=== PATIENT | male | born 1970 | race African-American/Black ===

== ENCOUNTER 2020-07-16 12:39 | Outpatient (REF) | payer OTHER, SELFPAY ==
[2020-07-16 13:21] LABS: MANUAL DIFF FLAG NO
[2020-07-16 13:24] LABS: Basophils Percent Auto 0.3 % (0-2); Eosinophils Absolute Auto 0.1 X10*3/uL (0.0-0.4); Eosinophils Percent Auto 1.4 % (0-4); Hematocrit 52.4 % (42-52); Hemoglobin 17.3 g/dl (14.0-18.0); Imm Gran Abs Auto 0.01 X10*3/uL (0.00-0.03); Imm Gran Pct Auto 0.2 % (0.0-0.4); Lymphocytes Absolute Auto 2.5 X10*3/uL (1.2-4.9); Mean Corpuscular Hemoglobin 28.8 pg (27.0-33.0); Mean Corpuscular Volume 87.3 fL (80-98); Monocytes Absolute Auto 0.5 X10*3/uL (0.1-1.2); Monocytes Percent Auto 8.5 % (2-11); Neutrophils Absolute Auto 2.7 X10*3/uL (2.0-8.3); Neutrophils Percent Auto 46.6 % (45-73); Platelet Count 219 X10*3/uL (160-400); Red Cell Distribution Width 14.8 % (11.0-16.0); White Blood Count 5.7 X10*3/uL (4.8-10.8)
[2020-07-16 13:46] LABS: Alanine Aminotransferase 32 U/L (0-40); Albumin Level 4.4 g/dL (3.5-5.0); Alkaline Phosphatase 49 U/L (39-117); Anion Gap 12 (12-20); Aspartate Amino Transferase 23 U/L (5-37); Bilirubin Direct 0.3 mg/dL (0.0-0.5); Bilirubin Total 0.7 mg/dL (0.0-1.0); Blood Urea Nitrogen 10 mg/dL (9-16); Calcium 9.6 mg/dL (8.4-10.2); Carbon Dioxide 28 mmol/L (22-29); Chloride 104 mmol/L (96-108); Cholesterol 152 mg/dL; Estimated Glomerular Filt Rate > 60; Glucose Fasting 129 mg/dL (60-99); HDL Cholesterol 44 mg/dL; LDL Cholesterol Calculated 85 mg/dl; Potassium 4.8 mmol/l (3.3-5.1); Sodium 139 mmol/L (135-145); Total Protein 7.5 g/dL (6.5-8.0); Triglycerides 115 mg/dL
== END 2020-07-16 12:40 | disposition home or self-care (01) ==
LOC: HO.LAB 12:39
PROVIDERS: PCP Internal Medicine; Visit Provider Nurse Practitioner Family
DX: R10.9 Unspecified abdominal pain (principal)
CPT/HCPCS: 36415; 80053; 80061; 80076; 82248; 85025

== ENCOUNTER 2021-06-04 08:39 | Outpatient (REF) | payer OTHER, SELFPAY ==
[2021-06-04 08:58] LABS: MANUAL DIFF FLAG NO
[2021-06-04 09:54] LABS: Basophils Percent Auto 0.4 % (0-2); Eosinophils Absolute Auto 0.1 X10*3/uL (0.0-0.4); Eosinophils Percent Auto 1.6 % (0-4); Hematocrit 51.9 % (42.0-52.0); Imm Gran Abs Auto 0.01 X10*3/uL (0.00-0.03); Imm Gran Pct Auto 0.2 % (0.0-0.4); Lymphocytes Absolute Auto 2.5 X10*3/uL (1.2-4.9); Lymphocytes Percent Auto 44.6 % (20-40); Mean Corpuscular HGB Conc 32.8 g/dl (31.0-36.0); Mean Corpuscular Hemoglobin 28.4 pg (27.0-33.0); Mean Corpuscular Volume 86.8 fL (80.0-98.0); Mean Platelet Volume 12.1 fL (9.4-12.4); Monocytes Absolute Auto 0.5 X10*3/uL (0.1-1.2); Neutrophils Absolute Auto 2.6 x10*3/uL (2.0-8.3); Neutrophils Percent Auto 45.2 % (45-73); Platelet Count 198 X10*3/uL (160-400); Red Blood Count 5.98 X10*6/uL (4.60-5.80); Red Cell Distribution Width 15.7 % (11.0-16.0); White Blood Count 5.6 X10*3/uL (4.8-10.8)
[2021-06-04 10:08] LABS: Alanine Aminotransferase 43 U/L (0-40); Albumin Level 4.3 g/dL (3.5-5.0); Alkaline Phosphatase 43 U/L (39-117); Anion Gap 14 (12-20); Aspartate Amino Transferase 29 U/L (5-37); Bilirubin Total 1.1 mg/dL (0.0-1.0); Blood Urea Nitrogen 19 mg/dL (9-16); Calcium 9.7 mg/dL (8.4-10.2); Carbon Dioxide 26 mmol/L (22-29); Chloride 106 mmol/L (96-108); Cholesterol 211 mg/dL; Estimated Glomerular Filt Rate > 60; Glucose Fasting 152 mg/dL (60-99); HDL Cholesterol 49 mg/dL; Iron 169 mcg/dL (45-160); LDL Cholesterol Calculated 135 mg/dl; Lactate Dehydrogenase 199 U/L (118-273); Percent Iron Saturation 56 % (15-50); Potassium 5.1 mmol/L (3.3-5.1); Sodium 141 mmol/L (135-145); Total Iron Binding Capacity 300 mcg/dL (228-428); Total Protein 7.3 g/dL (6.5-8.0); Triglycerides 138 mg/dL; Unsaturated Iron Binding 131 ug/dL
[2021-06-04 11:00] LABS: Estimated Average Glucose 151 mg/dL; Hemoglobin A1c % 6.9 %
[2021-06-04 11:05] LABS: Creatinine Urine 96.66 mg/dL; Microalbumin Urine < 5.0 mg/L
[2021-06-09 12:21] LABS: Vitamin D 25-OH, D2 <4 ng/mL; Vitamin D 25-OH, D3 15 ng/mL; Vitamin D 25-OH, Total 15 ng/mL (30-100)
== END 2021-06-04 08:40 | disposition home or self-care (01) ==
LOC: HO.LAB 08:39
PROVIDERS: PCP Internal Medicine; Visit Provider Internal Medicine
DX: D58.2 Other hemoglobinopathies (principal); E11.9 Type 2 diabetes mellitus without complications; E55.9 Vitamin D deficiency, unspecified; E78.5 Hyperlipidemia, unspecified
CPT/HCPCS: 36415; 80053; 80061; 82043; 82306; 83036; 83540; 83615; 85025

== ENCOUNTER 2021-06-12 11:13 | Outpatient (REF) | payer OTHER, SELFPAY ==
--- NOTE | ~2021-06-12 | XR_ITS ---
EXAMINATION: XR HAND, RIGHT CLINICAL INFORMATION: Pain in the right hand. COMPARISON: 04/21/2013 TECHNIQUE: PA, lateral, and oblique views of the right hand. FINDINGS: Soft tissues are swollen posterior to the region of the 3rd - 5th distal metacarpals. No radiopaque foreign body. Minimal curvature deformity of the fifth metacarpal is suggestive of remote healed fracture. There is no evidence of acute fracture or subluxation. The joint spaces are well-preserved throughout the hand and wrist. XR/XR hand RT 2V IMPRESSION: * No acute osseous injury in the right hand or wrist. No fracture or subluxation. * There is soft tissue swelling dorsal to the ulnar sided metacarpals. No opaque foreign body.
== END 2021-06-12 11:14 | disposition home or self-care (01) ==
LOC: HO.XRAY 11:13
PROVIDERS: PCP Internal Medicine; Visit Provider Internal Medicine
DX: M79.641 Pain in right hand (principal)
CPT/HCPCS: 73120

== ENCOUNTER 2021-10-09 09:38 | Outpatient (REF) | payer OTHER, SELFPAY ==
[2021-10-09 11:12] LABS: Creatinine Urine 172.05 mg/dL; Microalbum/Creatinine Ratio Ur 5.8 ug/mg cr
[2021-10-09 11:56] LABS: Alanine Aminotransferase 57 U/L (0-40); Albumin Level 4.4 g/dL (3.5-5.0); Alkaline Phosphatase 46 U/L (39-117); Anion Gap 15 (12-20); Aspartate Amino Transferase 40 U/L (5-37); Blood Urea Nitrogen 17 mg/dL (9-16); Calcium 9.8 mg/dL (8.4-10.2); Carbon Dioxide 25 mmol/L (22-29); Chloride 102 mmol/L (96-108); Cholesterol 190 mg/dL; Estimated Glomerular Filt Rate 57; Glucose Fasting 167 mg/dL (60-99); HDL Cholesterol 57 mg/dL; LDL Cholesterol Calculated 119 mg/dl; Potassium 4.8 mmol/L (3.3-5.1); Sodium 137 mmol/L (135-145); Total Protein 7.3 g/dL (6.5-8.0); Triglycerides 70 mg/dL
[2021-10-15 18:21] LABS: Vitamin D 25-OH, D2 27 ng/mL; Vitamin D 25-OH, D3 6 ng/mL; Vitamin D 25-OH, Total 33 ng/mL (30-100)
== END 2021-10-09 09:39 | disposition home or self-care (01) ==
LOC: HO.LAB 09:38
PROVIDERS: PCP Internal Medicine; Visit Provider Internal Medicine
DX: E78.5 Hyperlipidemia, unspecified (principal); E55.9 Vitamin D deficiency, unspecified; E11.9 Type 2 diabetes mellitus without complications
CPT/HCPCS: 36415; 80053; 80061; 82043; 82306

== ENCOUNTER 2022-05-06 09:19 | Outpatient (REF) | payer OTHER, SELFPAY ==
[2022-05-06 10:38] LABS: Alanine Aminotransferase 38 U/L (0-40); Albumin Level 4.2 g/dL (3.5-5.0); Alkaline Phosphatase 41 U/L (39-117); Anion Gap 14 (12-20); Aspartate Amino Transferase 28 U/L (5-37); Bilirubin Total 0.7 mg/dL (0.0-1.0); Blood Urea Nitrogen 17 mg/dL (9-16); Calcium 9.6 mg/dL (8.4-10.2); Carbon Dioxide 26 mmol/L (22-29); Chloride 109 mmol/L (96-108); Cholesterol 207 mg/dL; Estimated Glomerular Filt Rate 57; Glucose Fasting 152 mg/dL (60-99); HDL Cholesterol 48 mg/dL; LDL Cholesterol Calculated 141 mg/dl; Potassium 5.2 mmol/L (3.3-5.1); Sodium 144 mmol/L (135-145); Triglycerides 94 mg/dL
[2022-05-06 10:51] LABS: Vitamin D 25-OH Total 19.3 ng/mL (>30)
[2022-05-06 11:17] LABS: Creatinine Urine 159.59 mg/dL; Microalbum/Creatinine Ratio Ur 3.1 ug/mg cr
== END 2022-05-06 09:20 | disposition home or self-care (01) ==
LOC: HO.LAB 09:19
PROVIDERS: PCP Internal Medicine; Visit Provider Internal Medicine
DX: E55.9 Vitamin D deficiency, unspecified (principal); E11.9 Type 2 diabetes mellitus without complications; E78.5 Hyperlipidemia, unspecified
CPT/HCPCS: 36415; 80053; 80061; 82043; 82306

== ENCOUNTER → 2022-10-14 13:53 | Outpatient (BNVA) | payer OTHER, SELFPAY | PROVIDERS: PCP Internal Medicine; Visit Provider Orthopaedic Surgery | DX: R20.0 Anesthesia of skin (principal); R25.2 Cramp and spasm | CPT/HCPCS: 99202 ==

== ENCOUNTER 2022-11-10 07:47 | Outpatient (REF) | payer OTHER, SELFPAY ==
[2022-11-10 08:42] LABS: Alanine Aminotransferase 32 U/L (0-40); Albumin Level 4.2 g/dL (3.5-5.0); Alkaline Phosphatase 42 U/L (39-117); Anion Gap 10 (12-20); Aspartate Amino Transferase 33 U/L (5-37); Bilirubin Total 0.4 mg/dL (0.0-1.0); Blood Urea Nitrogen 23 mg/dL (9-16); Calcium 9.4 mg/dL (8.4-10.2); Carbon Dioxide 24 mmol/L (22-29); Chloride 109 mmol/L (96-108); Cholesterol 217 mg/dL; Estimated Glomerular Filt Rate > 60; Glucose Fasting 145 mg/dL (60-99); HDL Cholesterol 44 mg/dL; LDL Cholesterol Calculated 107 mg/dl; Sodium 138 mmol/L (135-145); Total Protein 6.9 g/dL (6.5-8.0); Triglycerides 331 mg/dL
[2022-11-10 08:58] LABS: Vitamin D 25-OH Total 12.5 ng/mL (>30)
[2022-11-10 09:46] LABS: Creatinine Urine 104.41 mg/dL; Microalbumin Urine < 5.0 mg/L
== END 2022-11-10 07:48 | disposition home or self-care (01) ==
LOC: HO.LAB 07:47
PROVIDERS: PCP Internal Medicine; Visit Provider Internal Medicine
DX: E78.5 Hyperlipidemia, unspecified (principal); E55.9 Vitamin D deficiency, unspecified; E11.9 Type 2 diabetes mellitus without complications
CPT/HCPCS: 36415; 80053; 80061; 82043; 82306

== ENCOUNTER 2022-12-10 09:07 | Outpatient (REF) | payer OTHER, SELFPAY ==
--- NOTE | 2022-12-10 09:10 | EMG_ITS ---
Please see scanned EMG / Nerve Conduction Report. MTDD
== END 2022-12-10 09:08 | disposition home or self-care (01) ==
LOC: HO.NEURO 09:07
PROVIDERS: PCP Internal Medicine; Visit Provider Orthopaedic Surgery
DX: R20.0 Anesthesia of skin (principal); R20.2 Paresthesia of skin
CPT/HCPCS: 95885; 95913

== ENCOUNTER → 2023-01-13 11:25 | Outpatient (BNVA) | payer OTHER, SELFPAY | PROVIDERS: PCP Internal Medicine; Visit Provider Orthopaedic Surgery | DX: R20.0 Anesthesia of skin (principal); R25.2 Cramp and spasm | CPT/HCPCS: 99202 ==

== ENCOUNTER 2023-04-13 09:00 | Outpatient (RCR) | payer OTHER, SELFPAY ==
--- NOTE | 2023-03-10 13:46 | MHC.OT.EP ---
[address] [phone] Occupational Therapy Plan of Care Patient Name: Terese Bell Date of Evaluation: 03/10/23 Diagnosis: Cramp and spasm. Cramping of hands Cramp of both lower extremities Pain Location: 2-7 bilateral hands and forearms achy , burning Pain Score: 7 Pain Scale Used: Numeric (0 - 10) Aggravating Factors: Gripping, hand use Alleviating Factors: Assessment: Pt is a 52 yo male with a reported 1-2 yr ho of worsening bilateral UE and LE pain, muscle spasm, weakness and paresthesia. He reports previously seen in PT at [facility] for UE symptoms for 2-3 months without improvement and had bilateral elbows injected at [facility] without improvement. [facility] Medical records not available at this time Today pt presents with bilateral low procurement intern strength , and low upper body endurance with resistance exercise. Strength WNL Pt may benefit from a short course of OT for progressing UE exercise and building activity tolerance. Frequency and Duration: The patient will be seen 1 x wk x 4 wks Short Term Goals: Indep following HEP with UE strengthening Tolerated 60 sec plank pose Forearm side plank up to 60 sec Biceps curls with 3 lb wt 10 reps , 3 sets Wrist curls with 2 lb wrist curls , 10 reps , 3 sets Right procurement intern to >45 lb Lock Plater Goals: Indep with HEP and progression of ther ex Right procurement intern to 60 lb Bicep curls at 5 lb , 10 reps 3 sets Demo simulated home making task without hands spasm Treatment Plan: Therapeutic Exercise Therapeutic Activity Home Exercise Program Patient Education Soft Tissue Mobilization Electronically Signed By: Page Mcneill OT CHT CLT Please Sign and return to therapist. Thank you once again for your referral.
--- NOTE | 2023-04-29 11:10 | MHC.OT.DC ---
[address] [phone] F: [phone] Occupational Therapy Discharge Note Patient Name: Terese Bell Provider: Nikki Rosas Diagnosis: Cramp and spasm. Cramping of hands Cramp of both lower extremities Date of Surgery: Date of Evaluation: 03/10/23 Date of Discharge: 04/29/23 Treatments to Date: 5 Cancellations to Date: No Shows to Date: Discharge Status: Discharge Summary: Continued complaint of high right upper extremity pain and complaint of intermittent bilateral hand numbness not improved with night wrist splints. Continued complaint of intermittent hands cramping, spasms nightly and 2-3 times a day. No hand cramping noted to date in OT Controller Repairer And Tester strength improved from eval from 30 lb on the right to 50 lb L 60 lb OT 1x wk per pt request. No follow up appointments scheduled Electronically Signed By: Page Mcneill OT CHT CLT Reviewed/agree with student documentation: Therapist: Please Sign and return to therapist, thank you for your referral.
== END 2023-04-29 11:11 | disposition home or self-care (01) ==
LOC: HO.OT 09:00
PROVIDERS: PCP Internal Medicine; Visit Provider Orthopaedic Surgery
DX: R25.2 Cramp and spasm (principal)
CPT/HCPCS: 97110; 97140; 97166

== ENCOUNTER 2023-04-13 09:35 | Outpatient (REF) | payer OTHER, SELFPAY ==
[2023-04-13 10:47] LABS: Alanine Aminotransferase 37 U/L (0-40); Albumin Level 4.3 g/dL (3.5-5.0); Alkaline Phosphatase 44 U/L (39-117); Anion Gap 9 (12-20); Aspartate Amino Transferase 23 U/L (5-37); Bilirubin Total 0.6 mg/dL (0.0-1.0); Blood Urea Nitrogen 14 mg/dL (9-16); Calcium 9.5 mg/dL (8.4-10.2); Carbon Dioxide 26 mmol/L (22-29); Chloride 107 mmol/L (96-108); Cholesterol 215 mg/dL (<200); Estimated Glomerular Filt Rate 54; Glucose Fasting 172 mg/dL (60-99); HDL Cholesterol 54 mg/dL (>40); LDL Cholesterol Calculated 141 mg/dL (<100); Potassium 4.3 mmol/L (3.3-5.1); Sodium 138 mmol/L (135-145); Total Protein 7.2 g/dL (6.5-8.0); Triglycerides 103 mg/dL (<150)
[2023-04-13 11:05] LABS: Vitamin D 25-OH Total 18.8 ng/mL (>30)
[2023-04-13 12:52] LABS: Creatinine Urine 150.65 mg/dL; Microalbum/Creatinine Ratio Ur 3.3 ug/mg cr (<30)
== END 2023-04-13 09:36 | disposition home or self-care (01) ==
LOC: HO.LAB 09:35
PROVIDERS: PCP Internal Medicine; Visit Provider Internal Medicine
DX: E11.9 Type 2 diabetes mellitus without complications (principal); E78.5 Hyperlipidemia, unspecified; E55.9 Vitamin D deficiency, unspecified
CPT/HCPCS: 36415; 80053; 80061; 82043; 82306; 82570

== ENCOUNTER 2023-04-16 13:59 | Outpatient (AMB) | payer OTHER, SELFPAY ==
[2023-04-16 14:05] VITALS: BP 116/72; BMI 30.4
--- NOTE | 2023-04-16 14:05 | MHC.PC.OV ---
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 Required: No Accompanied by: Self / Same As Patient Allergies No Known Allergies Allergy (Verified 04/16/23 14:17) Medication List - Last Reconciled 04/16/23 by Amparo Waite MD aspirin (Adult Low Dose Aspirin) 81 mg PO DAILY 90 days atorvastatin 80 mg PO BEDTIME 90 days blood sugar diagnostic (FreeStyle Lite Strips) Use 1 test strip once a day blood-glucose meter As directed blood-glucose meter (FreeStyle Lite Meter kit) As directed ergocalciferol (vitamin D2) 1,250 mcg PO QWEEK 90 days ezetimibe 10 mg PO DAILY 90 days lamotrigine 25 mg PO lancets As directed metformin ER 500 mg PO BID 90 days nabumetone 500 mg PO BID pioglitazone 15 mg PO DAILY 90 days sertraline 100 mg PO sertraline 50 mg PO DAILY Tobacco use date assessed: 09/10/22 Dental Screening Dental Screen Date: 04/16/23 Did you have a dental visit in the last 12 months?: Yes Did you have a dental problem in the last 6 months where you did not have access to dental care?: No Was dental information given to patient?: Patient has dentist HPI HPI Comments History of Present Illness Details This is a 52-year-old male with diabetes mellitus type 2, mild major depression, and hyperlipidemia that complains of bilateral shoulder pain with full active range of motion. This shoulder pain has been present for few months with no previous trauma. A1c within goal. Depression stable with SSRIs. LDL not on goal and even though Repatha was approved by insurance the pharmacy did not gave it to him and he wants to change pharmacies. No chest pain or shortness of breath. ON LICENSE OF [facility] Medical History Abdominal pain Depression with anxiety Diabetes mellitus Dyslipidemia Elevated hemoglobin Hypovitaminosis D Mild recurrent major depression Polyarthralgia Right hand pain Surgical History No history of previous surgery Family History Mother High blood pressure Diabetes Father No problems noted. Family/Other Mental health disorder Social History Housing: Apartment Alcohol intake: current Alcohol intake frequency: a few times a month Alcohol type: hard liquor Patient Tobacco Use Status: Never used Tobacco e-Cigarette/Vaping Use: Never Used Second Hand Smoke Exposure: No service: No 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al status: unemployed Cognitive needs: No Hearing needs: No Vision needs: No Questionnaire Thrive Questionnaire Date Thrive assessed: 09/10/22 MUKUND-7 AMB Questionnaire MUKUND-7 Date MUKUND - 7 assessed: 09/10/22 Source: Developed by Drs. Adonis Li, Marisol Kumar, Riley Trotter and colleagues, with an educational zulema from [employer] Review of Systems Const All systems reviewed & are unremarkable except as noted in HPI and below Eyes Reports no additional complaints, Denies change in vision and Denies other visual disturbances Card Denies chest pain at rest, Denies chest pain with activity, Denies edema, Denies irregular heart rhythm, Denies claudication, Denies dyspnea, Denies dyspnea on exertion, Denies orthopnea, Denies paroxysmal nocturnal dyspnea and Denies slow heart rate Resp Denies cough, Denies dyspnea and Denies dyspnea on exertion GI Denies abdominal pain, Denies change in bowel habits, Denies excessive flatus, Denies nausea and Denies vomiting Denies urinary hesitancy, Denies urinary incontinence and Denies urinary urgency Musc Denies abnormal gait, Denies atrophy, Denies deformity and Denies limited range of motion Skin/Breast Denies bleeding lesions, Denies changing lesions and Denies rash Neuro Denies abnormal gait and Denies lack of coordination Physical exam (Primary Care) Vital Signs: Last Vital Signs BP 116/72 04/16/23 14:05 BMI result Body Mass Index 30.4 Tobacco/Smoking Status: Tobacco use Status Tobacco use date assessed 09/10/22 04/16/23 14:11 Patient Tobacco Use Status Never used Tobacco 04/16/23 14:11 e-Cigarette/Vaping Use Never Used 04/16/23 14:11 Thrive Assessment: Date of Thrive Assessment Date Thrive assessed 09/10/22 04/16/23 14:11 Eyes General: appearance normal, both eyes and all related structures Eyelids: Yes eyelids normal Conjunctivae: conjunctivae normal Neck Neck: Yes normal visual inspection and Yes supple Resp Effort & Inspection: normal respiratory effort Auscultation: clear to auscultation bilaterally Cardio Jugular venous distension: no JVD Rate: regular rate Rhythm: regular rhythm Heart sounds: S1 normal heart sound present and S2 normal heart sound present Extrem General: Yes full ROM Results AMB Hemoglobin A1c AMB Hemoglobin A1c 6.7 % Last Edit by HENRY Phillips on 04/16/23 14:19 Assessment and Plan Assessment & Plan (1) Diabetes mellitus: Code(s): E11.9 - Type 2 diabetes mellitus without complications Qualifiers: Diabetes mellitus type: type 2 Diabetes mellitus lead cashier insulin use: without intermediate use Diabetes mellitus complication status: without complication Qualified Code(s): E11.9 - Type 2 diabetes mellitus without complications Plan: Continue metformin and Actos. A1c goal is equal or less than 7%. (2) Mild recurrent major depression: Code(s): F33.0 - Major depressive disorder, recurrent, mild Plan: Continue SSRIs (3) Shoulder pain, bilateral: Code(s): M25.511 - Pain in right shoulder; M25.512 - Pain in left shoulder Plan: Referred to [facility] for 2nd opinion (4) Hyperlipidemia LDL goal <70: Code(s): E78.5 - Hyperlipidemia, unspecified Plan: Continue statins and Zetia. Start Repatha. LDL goal is less than 70. Orders: Orders Microalbumin, Random (w Creat) 4 Months E11.9 - Type 2 diabetes mellitus without complications AMB Hemoglobin A1c Today E11.9 - Type 2 diabetes mellitus without complications Lipid Panel 4 Months E78.5 - Hyperlipidemia, unspecified Comprehensive [place]. Panel Fast 4 Months E78.5 - Hyperlipidemia, unspecified Referrals Orthopedics Referral M25.511 - Pain in right shoulder, M25.512 - Pain in left shoulder Medications: New evolocumab (Repatha SureClick) 140 mg subcut Q2W 30 days 3 mL 1RF E78.5 - Hyperlipidemia, unspecified Coding Level of Care Code Est Pt Level 4 (99185) Diagnoses Type 2 diabetes mellitus without complication, without long-term current use of insulin E11.9 Diabetes mellitus type: type 2 Diabetes mellitus intermediate insulin use: without intermediate use Diabetes mellitus complication status: without complication Mild recurrent major depression F33.0 Shoulder pain, bilateral M25.511; M25.512 Hyperlipidemia LDL goal <70 E78.5 Time Spent (min) 22
== END 2023-04-16 14:29 | disposition home or self-care (01) ==
PROVIDERS: PCP Internal Medicine; Visit Provider Internal Medicine
DX: E11.9 Type 2 diabetes mellitus without complications (principal); F33.0 Major depressive disorder, recurrent, mild; M25.511 Pain in right shoulder; M25.512 Pain in left shoulder; E78.5 Hyperlipidemia, unspecified
CPT/HCPCS: 83036; 99214

== ENCOUNTER 2023-04-30 10:58 | Outpatient (AMB) | payer OTHER, SELFPAY ==
[2023-04-30 11:01] VITALS: BP 92/60; PULSE 71; O2SAT 98; BMI 31.2
--- NOTE | 2023-04-30 11:01 | MHC.PC.OV ---
Vital Signs 04/30/23 11:01 Height 5 ft 4 in Weight 182 lb 0.8 oz BMI 31.2 BP 92/60 Blood Pressure Location Lt brachial Position Sitting Pulse 71 Pulse Source Pulse Oximeter Temp Source Skin Pulse Oximetry (%) 98 Oxygen Delivery Method Room Air Intake Visit Reasons: chest pain, seen at [facility] 04/28 Conservation Officer Required: Yes Conservation Officer Language: Egyptian Allergies No Known Allergies Allergy (Verified 04/30/23 11:20) Medication List - Last Reconciled 04/30/23 by CLINT Ambriz acetaminophen (Tylenol Extra Strength) 500 mg PO Q6H PRN aspirin (Adult Low Dose Aspirin) 81 mg PO DAILY 90 days atorvastatin 80 mg PO BEDTIME 90 days blood sugar diagnostic (FreeStyle Lite Strips) Use 1 test strip once a day blood-glucose meter As directed blood-glucose meter (FreeStyle Lite Meter kit) As directed cyclobenzaprine 10 mg PO BEDTIME ergocalciferol (vitamin D2) 1,250 mcg PO QWEEK 90 days evolocumab (Repatha SureClick) 140 mg subcut Q2W 30 days ezetimibe 10 mg PO DAILY 90 days lamotrigine 25 mg PO lancets As directed metformin ER 500 mg PO BID 90 days nabumetone 500 mg PO BID pioglitazone 15 mg PO DAILY 90 days sertraline 100 mg PO sertraline 50 mg PO DAILY Tobacco use date assessed: 04/30/23 Dental Screening Dental Screen Date: 04/30/23 Did you have a dental visit in the last 12 months?: Yes Did you have a dental problem in the last 6 months where you did not have access to dental care?: No Was dental information given to patient?: Patient has dentist HPI chest pain, seen at [facility] 04/28 HPI Details Patient is a 52-year-old male who presents today to follow-up after [facility] Emergency Department visit 04/28/2023 due to chest pain. Patient of Dr. Kilpatrikc. No discharge notes from the emergency department, this was requested prior to visit. Medical history significant for diabetes, dyslipidemia, depression with anxiety, bilateral hand numbness among others. Patient reports he presented to the emergency department with chest pain, he reports that he was diagnosed with inflammation behind his chest and he was discharged home with cyclobenzaprine and Tylenol. He reports intermittent chronic left arm and right arm numbness. Currently he reports 4/10 scale chest pain. Reports that his chest pain feels better and then gets worse again, does not think medications help him much with pain. No shortness of breath. Reports mid chest and left-sided chest pain. Reports chest tightness. Reports feels better when bending forward. Reports stress in his life about 50%. Patient is a Egyptian-speaking and Dheeraj was helping with interpretation. [facility] Medical History Hypovitaminosis D Mild recurrent major depression Right hand pain Depression with anxiety Polyarthralgia Dyslipidemia Diabetes mellitus Elevated hemoglobin Abdominal pain Surgical History No history of previous surgery Family History Mother High blood pressure Diabetes Father No problems noted. Family/Other Mental health disorder Social History Housing: Apartment Alcohol intake: current Alcohol intake frequency: a few times a month Alcohol type: hard liquor Patient Tobacco Use Status: Never used Tobacco e-Cigarette/Vaping Use: Never Used Second Hand Smoke Exposure: No service: No 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al status: unemployed Cognitive needs: No Hearing needs: No Vision needs: No Questionnaire PHQ-9 Over the last 2 weeks, how often have you been bothered by any of the following problems? 1. Little interest or pleasure in doing things: not at all 2. Feeling down, depressed, or hopeless: nearly every day 3. Trouble falling or staying asleep, or sleeping too much: more than half the days 4. Feeling tired or having little energy: nearly every day 5. Poor appetite or overeating: nearly every day 6. Feeling bad about yourself - or that you are a failure or have let yourself or your family down: nearly every day 7. Trouble concentrating on things, such as reading the newspaper or watching television: nearly every day 8. Moving or speaking so slowly that other people could have noticed. Or the opposite - being so fidgety or restless that you have been moving around a lot more than usual: nearly every day 9. Thoughts that you would be better off or of hurting yourself in some way: nearly every day Total score: 23 Depression Screening Interpretation: Positive (No suicidal thoughts) Depression Screening Follow-up: Existing condition and In treatment Depression Screening Done: Yes 63603 - PHQ-9 Billing: Yes Source: Developed by Drs. Adonis Li, Riley Driscoll and colleagues, with an educational zulema from [employer]. Thrive Questionnaire Date Thrive assessed: 09/10/22 AUDIT C Alcohol Use Questionnaire (AUDIT-C) 1. How often do you have a drink containing alcohol?: Monthly or less 2. How many drinks containing alcohol do you have on a typical day when you are drinking?: 1 or 2 3. How often do you have six or more drinks on one occasion?: Never Total Score: 1 Score Reviewed/Action Taken: No MUKUND-7 AMB Questionnaire MUKUND-7 Date MUKUND - 7 assessed: 09/10/22 Source: Developed by Drs. Adonis Li, Marisol Kumar, Riley Trotter and colleagues, with an educational zulema from [employer]. Review of Systems Const Denies body aches, Denies chills, Denies fever(s) and Denies headache(s) Eyes Details: Has reading glasses ENT Denies dizziness, Denies otalgia, Denies headache(s), Denies nasal discharge, Denies sinus pain and Denies sore throat Card Reports chest pain, Denies edema, Denies lightheadedness and Denies dyspnea Resp Denies cough, Denies dyspnea and Denies wheezing GI Denies abdominal pain Denies dysuria Musc Reports as per HPI, Denies myalgias, Reports numbness and Denies tingling Skin/Breast Denies rash Neuro Denies dizziness, Denies headache(s), Reports numbness and Denies tingling Aller/Immun Denies wheezing Physical exam (Primary Care) Vital Signs: Last Vital Signs Pulse 71 04/30/23 11:01 BP 92/60 04/30/23 11:01 Pulse Ox 98 04/30/23 11:01 Oxygen Delivery Method Room Air 04/30/23 11:01 BMI result Body Mass Index 31.2 Tobacco/Smoking Status: Tobacco use Status Tobacco use date assessed 04/30/23 04/30/23 11:09 Patient Tobacco Use Status Never used Tobacco 04/30/23 11:01 e-Cigarette/Vaping Use Never Used 04/30/23 11:01 PHQ-9: PHQ-9 Score PHQ-9: Total score 04/30/23 11:22 Depression Screening Interpretation: Positive (No suicidal thoughts) Depression Screening Follow-up: Existing condition and In treatment Thrive Assessment: Date of Thrive Assessment Date Thrive assessed 09/10/22 04/30/23 11:01 Const General: cooperative and no acute distress Orientation/consciousness: patient oriented x3 HENMT Head: Yes normocephalic and Yes atraumatic Face and sinus: Yes sinuses nontender Mouth: oropharynx normal and moist mucous membranes Throat: Yes posterior oropharynx normal Eyes General: appearance normal, both eyes and all related structures Pupils: Equal, round and reactive pupils present Neck Neck: Yes normal visual inspection, Yes full ROM and Yes no lymphadenopathy Chest Chest palpation & inspection: tenderness (Anterior chest generalized area tender to palpation) Resp Effort & Inspection: normal respiratory effort and able to speak in complete sentences Auscultation: clear to auscultation bilaterally, no crackles, no rales, no rhonchi and no wheezes Cardio Rate: regular rate Rhythm: regular rhythm Heart sounds: S1 normal heart sound present, S2 normal heart sound present and no murmurs GI Palpation (GI): Soft to palpation, not firm, nontender, no guarding, not rigid and no hepatosplenomegaly Auscultation: normal bowel sounds Skin General skin exam: no rashes or lesions noted Neuro General: patient oriented x3 Cranial nerves: Yes Equal, round and reactive pupils present Gait exam (Neuro): Normal gait present Extrem General: Yes full ROM and No edema Office Procedures EKG Details: 71 BPM, sinus rhythm, left precordial ST elevation, consider acute ischemia. Results reviewed with patient. [id number], Complete Assessment and Plan Assessment & Plan (1) Chest pain: Code(s): R07.9 - Chest pain, unspecified Plan: EKG in office 71 BPM, sinus rhythm, left precordial ST elevation, consider acute ischemia. Results reviewed with patient. Patient reports that he took his aspirin this morning. Patient was advised to go to the emergency department for evaluation and treatment due to abnormal EKG. Patient declined ambulance. Patient reports that he will walk to [place] emergency department for an evaluation. Report was called in by PIN GAME MACHINE INSPECTOR to [facility] ED. patient agreed with the plan. Follow-up after hospital visit. Case discussed with TIFFANY Snyder. Coding Level of Care Code Est Pt Level 3 (67157) Diagnoses Chest pain R07.9 CPT Codes EKG - CPT: 03338-[id number], Complete ([id number])
== END 2023-04-30 11:40 | disposition home or self-care (01) ==
PROVIDERS: PCP Internal Medicine; Visit Provider Nurse Practitioner Family
DX: R07.9 Chest pain, unspecified (principal); F41.8 Other specified anxiety disorders; E55.9 Vitamin D deficiency, unspecified
CPT/HCPCS: 93000; 99213

== ENCOUNTER 2023-04-30 11:44 | Emergency (ER) | payer OTHER, SELFPAY ==
--- NOTE | 2023-04-30 11:49 | ED.GENADULT ---
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 ? Patient went to [facility] 2 days ago due to having chest pain He had a negative workup and was ultimately discharged home It was felt that his chest pain was related to musculoskeletal origin He had a follow-up appoint with his PCP earlier today He was found to have an abnormal EKG and was subsequently sent to the ER again for further evaluation The patient has never seen Cardiology but reports he was given an appointment for July 08. Patient states that he has had chest pain on and off for the entire year but his symptoms worsened 2 days ago when he went to the ER initially. Currently he has no chest pain Related Data Home Medications Medication Instructions Recorded Confirmed blood-glucose meter #1 ea 07/16/20 04/30/23 lancets 28 gauge #100 ea 07/16/20 04/30/23 sertraline 25 mg tablet 50 mg PO DAILY 10/10/21 04/30/23 lamotrigine 25 mg tablet 25 mg PO 09/10/22 04/30/23 sertraline 100 mg tablet 100 mg PO 09/10/22 04/30/23 nabumetone 500 mg tablet 500 mg PO BID 11/13/22 04/30/23 acetaminophen 500 mg oral powder 500 mg PO Q6H PRN 04/30/23 04/30/23 packet (Tylenol Extra Strength) cyclobenzaprine 10 mg tablet 10 mg PO BEDTIME 04/30/23 04/30/23 Previous Rx's Medication Instructions Recorded aspirin 81 mg tablet,delayed 81 mg PO DAILY 90 days #90 tabs 06/12/21 release (Adult Low Dose Aspirin) metformin 500 mg tablet,extended 500 mg PO BID 90 days #180 tabs 06/12/21 release 24 hr pioglitazone 15 mg tablet 15 mg PO DAILY 90 days #90 tabs 06/12/21 atorvastatin 80 mg tablet 80 mg PO BEDTIME 90 days #90 tabs 12/04/21 ezetimibe 10 mg tablet 10 mg PO DAILY 90 days #90 tabs 10/09/22 ergocalciferol (vitamin D2) 1,250 1,250 mcg PO QWEEK 90 days #13 caps 11/13/22 mcg (50,000 unit) capsule blood sugar diagnostic (FreeStyle #100 ea 03/12/23 Lite Strips) blood-glucose meter (FreeStyle #1 ea 03/18/23 Lite Meter kit) evolocumab 140 mg/mL subcutaneous 140 mg subcut Q2W 30 days #3 mL 04/16/23 pen injector (Repatha SureClick) Allergies Allergy/AdvReac Type Severity Reaction Status Date / Time No Known Allergies Allergy Verified 04/30/23 11:20 Review of Systems Constitutional: Constitutional: Reports as per HPI, Denies chills, Denies fatigue, Denies fever(s) and Denies headache(s) ENT: Denies headache(s) Cardiovascular: Cardiovascular: Denies chest pain and Denies dyspnea Respiratory: Respiratory: Denies cough and Denies dyspnea Gastrointestinal: Gastrointestinal: Denies abdominal pain, Denies constipation and Denies vomiting Genitourinary: Genitourinary: Denies difficulty urinating and Denies dysuria Neurologic: Denies headache(s) and Denies focal weakness Endocrine: Endocrine: Denies fatigue PMFSH Past Medical History Medical History Hypovitaminosis D Mild recurrent major depression Right hand pain Depression with anxiety Polyarthralgia Dyslipidemia Diabetes mellitus Elevated hemoglobin Abdominal pain Surgical History No history of previous surgery Family History Family History Mother High blood pressure Diabetes Father No problems noted. Family/Other Mental health disorder Social History Social History Housing: Apartment Alcohol intake: current Alcohol intake frequency: a few times a month Alcohol type: hard liquor Patient Tobacco Use Status: Never used Tobacco e-Cigarette/Vaping Use: Never Used Second Hand Smoke Exposure: No service: No 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al status: unemployed Cognitive needs: No Hearing needs: No Vision needs: No Physical Exam ED Vital Signs: Vital Signs - 24 hr 04/30/23 11:50 04/30/23 18:35 Temperature 98.3 F 97.5 F Pulse Rate 73 66 Respiratory Rate 18 16 Blood Pressure 118/73 127/77 Pulse Oximetry 98 98 Oxygen Delivery Method Room Air Room Air BMI result Body Mass Index 30.0 Const General: healthy appearing, comfortable, no acute distress, alert and awake Nutritional Appearance: well nourished Orientation/consciousness: patient oriented x3 HENMT Head: Yes normocephalic and Yes atraumatic Eyes Eyelids: Yes eyelids normal Conjunctivae: conjunctivae normal Sclerae: sclerae normal Corneas: corneas normal Pupils: Equal, round and reactive pupils present EOM: EOMs intact bilaterally Neck Neck: Yes full ROM Resp Effort & Inspection: normal respiratory effort, able to speak in complete sentences and not labored Cardio Rate: regular rate Rhythm: regular rhythm Skin General skin exam: elasticity normal Neuro General: patient oriented x3 Cranial nerves: Yes Equal, round and reactive pupils present and Yes Bilaterally intact EOM present Cognition (Neuro): normal cognition Course Course Course Narrative: This is a rapid medical exam: Additional HPI, ROS, PE not included below will be deferred to primary provider. Patient is a 52-year-old Maltese-speaking male with history of DM, dyslipidemia, polyarthralgia, depression and anxiety presenting to the ED with complaint of 4/10 chest pain. He was seen at [facility] Thursday for chest pain, was discharged. He was at his PCP, Dr. Kilpatrick, office today, had EKG and was referred to the ED for abnormal EKG. Plan: EKG, labs, CXR Medical Decision Making Medical Decision Making [facility] Narrative: 52-year-old male presents for evaluation of an abnormal EKG. His EKG on arrival shows some ST elevation consistent with early repolarization. This is unchanged when compared to an EKG from July of 2019, 4 years ago. The patient is currently chest pain free, he has not had chest pain in the last 2 days. His troponin was negative. This effectively rules out ACS as the symptoms started 2 days ago with a negative troponin. The patient referred to cardiology for further evaluation and management. He is stable for discharge to follow-up with his PCP and Cardiology as an outpatient Differential Diagnosis Differential Diagnoses: The differential diagnosis associated with the presentation includes Chest pain Chest wall pain Abnormal EKG Cardiomyopathy Lab Data [facility] Lab Attestation statement: I reviewed the patient's lab results. No leukocytosis, no significant anemia. Normal platelet count. No electrolyte abnormalities. Normal renal function. Troponin less than 2.7 04/30/23 12:39 04/30/23 12:39 Labs: Lab Results 04/30/23 Range/Units 12:39 WBC 5.8 (4.8-10.8) X10*3/uL RBC 5.80 (4.60-5.80) X10*6/uL Hgb 16.7 (14.0-18.0) g/dl Hct 49.1 (42.0-52.0) % MCV 84.7 (80.0-98.0) fL MCH 28.8 (27.0-33.0) pg MCHC 34.0 (31.0-36.0) g/dl RDW 14.7 (11.0-16.0) % Plt Count 208 (160-400) X10*3/uL MPV 11.9 (9.4-12.4) fL Immature Gran % (Auto) 0.3 (0.0-0.4) % Neut % (Auto) 46.8 (45-73) % Lymph % (Auto) 43.7 H (20-40) % Garvin % (Auto) 6.9 (2-11) % Eos % (Auto) 2.1 (0-4) % Baso % (Auto) 0.2 (0-2) % Lymph # (Auto) 2.5 (1.2-4.9) X10*3/uL Garvin # (Auto) 0.4 (0.1-1.2) X10*3/uL Eos # (Auto) 0.1 (0.0-0.4) X10*3/uL Baso # (Auto) 0.0 (0.0-0.2) X10*3/uL Abs Immat Gran (auto) 0.02 (0.00-0.03) X10*3/uL Absolute Neuts (auto) 2.7 (2.0-8.3) x10*3/uL Absolute Nucleated RBC 0.000 (0.0-0.012) X10*3/uL Nucleated RBC % (auto) 0.0 (0.0-0.2) /100WBC Sodium 138 (135-145) mmol/L Potassium 4.4 (3.3-5.1) mmol/L Chloride 106 (96-108) mmol/L Carbon Dioxide 24 (22-29) mmol/L Anion Gap 12 (12-20) BUN 10 (9-16) mg/dL Creatinine 1.03 (0.5-1.4) mg/dL Estim Creat Clear Calc 81.6 Estimated GFR > 60 Random Glucose 147 H (60-115) mg/dL Calcium 9.3 (8.4-10.2) mg/dL Total Bilirubin 0.4 (0.0-1.0) mg/dL AST 24 (5-37) U/L ALT 37 (0-40) U/L Alkaline Phosphatase 45 (39-117) U/L Troponin I High Sens < 2.7 (<3.5-35.0) ng/L Total Protein 7.0 (6.5-8.0) g/dL Albumin 4.0 (3.5-5.0) g/dL Independent Interpretation I performed an independent interpretation of an: EKG (Normal sinus rhythm with a rate of [address] elevation and lead V2. There are no reciprocal changes. This EKG is essentially unchanged from August 19, 2019) Discharge Plan Discharge Clinical Impression: Abnormal ECG, Atypical chest pain Patient Disposition: Home, Self-Care Instructions: Chest Pain (ED) Additional Instructions: Your EKG is similar in appearance to August 19, 2019. Both EKGs show early repolarization However the remainder of your workup in the emergency department was reassuring including your troponin levels Follow-up with cardiology given the abnormal EKG but it does not appear that there was any damage to your heart Call tomorrow to schedule an appointment Prescriptions: No Action pioglitazone 15 mg tablet 15 mg PO DAILY 90 Days Qty: 90 1RF metformin 500 mg tablet extended release 24 hr 500 mg PO BID 90 Days Qty: 180 2RF atorvastatin 80 mg tablet 80 mg PO BEDTIME 90 Days Qty: 90 1RF ezetimibe 10 mg tablet 10 mg PO DAILY 90 Days Qty: 90 1RF (DME) FreeStyle Lite Strips Strip See Rx Instructions .Route Qty: 100 11RF Rx Instructions: Use 1 test strip once a day (DME) blood-glucose meter [FreeStyle Lite Meter] Kit See Rx Instructions .Route Qty: 1 0RF Rx Instructions: As directed (DME) blood-glucose meter Kit See Rx Instructions .ROUTE TID Qty: 1 Rx Instructions: As directed (DME) lancets 28 gauge misc See Rx Instructions Not Applicable TID Qty: 100 Rx Instructions: As directed aspirin [Adult Low Dose Aspirin] 81 mg tablet,delayed release (DR/EC) 81 mg PO DAILY 90 Days Qty: 90 2RF nabumetone 500 mg tablet 500 mg PO BID ergocalciferol (vitamin D2) 1,250 mcg (50,000 unit) capsule 1,250 mcg PO QWEEK 90 Days Qty: 13 1RF sertraline 100 mg tablet 100 mg PO lamotrigine 25 mg tablet 25 mg PO sertraline 25 mg tablet 50 mg PO DAILY Repatha SureClick 140 mg/mL pen injector 140 mg subcut Q2W 30 Days Qty: 3 1RF cyclobenzaprine 10 mg tablet 10 mg PO BEDTIME Tylenol Extra Strength 500 mg powder in packet 500 mg PO Q6H PRN Referrals: Nikolas Cote MD [Physician] - (abnormal EKG)
[2023-04-30 11:50] VITALS: BP 118/73; PULSE 73; RESP 18; TEMP 36.8; O2SAT 98
[2023-04-30 18:35] VITALS: BP 127/77; PULSE 66; RESP 16; TEMP 36.4; O2SAT 98
== END 2023-04-30 21:28 | disposition home or self-care (01) ==
PROVIDERS: Emergency Provider Emergency Medicine; PCP Internal Medicine
DX: R94.31 Abnormal electrocardiogram [ECG] [EKG] (principal); R07.89 Other chest pain; E11.9 Type 2 diabetes mellitus without complications; E78.5 Hyperlipidemia, unspecified; Z79.82 Long term (current) use of aspirin; Z79.84 Long term (current) use of oral hypoglycemic drugs; Z79.899 Other long term (current) drug therapy
CPT/HCPCS: 36415; 71046; 80053; 84484; 85025; 93005; 99283; 99285

== ENCOUNTER 2023-08-10 09:05 | Outpatient (AMB) | payer OTHER, SELFPAY ==
--- NOTE | 2023-08-10 09:31 | MHC.PC.OV ---
Vital Signs 08/10/23 09:33 Height 5 ft 4 in Weight 171 lb 6 oz BMI 29.4 BP 112/78 Blood Pressure Location Lt brachial Position Sitting Pulse 72 Pulse Source Pulse Oximeter Pulse Oximetry (%) 97 Oxygen Delivery Method Room Air Intake Visit Reasons: [facility] 07/02/23 injury to RT hand with a nail gun Intake Note: Patient is here to follow-up after a visit the emergency department at [facility] on 06/01/23. Program And Research Coordinator Required: Yes Program And Research Coordinator Language: Biological Sciences Instructor Name: Vadim ([id number]) Information Interpreted: non-clinical & clinical Business Development Manager: Not Required per policy Accompanied by: Self / Same As Patient Allergies No Known Allergies Allergy (Verified 08/10/23 10:36) Medication List - Last Reconciled 08/10/23 by Florin Kyle MD acetaminophen (Tylenol Extra Strength) 500 mg PO Q6H PRN aspirin (Adult Low Dose Aspirin) 81 mg PO DAILY 90 days atorvastatin 80 mg PO BEDTIME 90 days blood sugar diagnostic (FreeStyle Lite Strips) Use 1 test strip once a day blood-glucose meter As directed blood-glucose meter (FreeStyle Lite Meter kit) As directed cyclobenzaprine 10 mg PO BEDTIME ergocalciferol (vitamin D2) 1,250 mcg PO QWEEK 90 days evolocumab (Repatha SureClick) 140 mg subcut Q2W 30 days ezetimibe 10 mg PO DAILY 90 days lamotrigine 25 mg PO lancets As directed metformin ER 500 mg PO BID 90 days nabumetone 500 mg PO BID pioglitazone 15 mg PO DAILY 90 days sertraline 100 mg PO sertraline 50 mg PO DAILY Tobacco use date assessed: 08/10/23 Dental Screening Dental Screen Date: 08/10/23 Did you have a dental visit in the last 12 months?: No Did you have a dental problem in the last 6 months where you did not have access to dental care?: No Was dental information given to patient?: No HPI [facility] 07/02/23 injury to RT hand with a nail gun HPI Details 52-year-old male presents to the office for a follow-up visit. I am covering for his regular primary care provider. Patient had an injury and was seen at [facility] on June 01. A nail had pierced through the dorsum of his hand. The nail was removed in its entirety. The wound has healed. Patient is here for a follow-up visit for the same. Patient is also scheduled for surgery on the right shoulder. This is unrelated to the hand injury of June 01. [facility] Medical History (Updated 05/01/23 @ 00:01 by Rocío Rayo) Hypovitaminosis D Mild recurrent major depression Right hand pain Depression with anxiety Polyarthralgia Dyslipidemia Diabetes mellitus Elevated hemoglobin Abdominal pain Surgical History (Updated 08/10/23 @ 09:42 by HENRY Newby) History of hand surgery History of shoulder surgery No history of previous surgery Family History Mother High blood pressure Diabetes Father No problems noted. Family/Other Mental health disorder Social History Housing: Apartment Alcohol intake: current Alcohol intake frequency: a few times a month Alcohol type: hard liquor Patient Tobacco Use Status: Current everyday Tobacco user Cigarettes Per Day: 5 e-Cigarette/Vaping Use: Never Used Second Hand Smoke Exposure: No service: No 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al status: unemployed Cognitive needs: No Hearing needs: No Vision needs: No Questionnaire PHQ-9 Over the last 2 weeks, how often have you been bothered by any of the following problems? 1. Little interest or pleasure in doing things: several days 2. Feeling down, depressed, or hopeless: nearly every day 3. Trouble falling or staying asleep, or sleeping too much: several days 4. Feeling tired or having little energy: several days 5. Poor appetite or overeating: several days 6. Feeling bad about yourself - or that you are a failure or have let yourself or your family down: more than half the days 7. Trouble concentrating on things, such as reading the newspaper or watching television: not at all 8. Moving or speaking so slowly that other people could have noticed. Or the opposite - being so fidgety or restless that you have been moving around a lot more than usual: more than half the days 9. Thoughts that you would be better off or of hurting yourself in some way: more than half the days Total score: 13 Source: Developed by Drs. Adonis L. GuillermoMarisol still Kurt Kroenke and colleagues, with an educational zulema from [employer]. Thrive Questionnaire Date Thrive assessed: 08/10/23 I am a: Patient What is your living situation today?: I have a steady place to live Within the past 12 months, did the food you bought not last and you didn't have the money to get more?: Never true Within the past 12 months, did you worry whether your food would run out before you got money to buy more?: Never true Do you have trouble paying for medicines?: No Do you have trouble getting transportation to medical appointments?: No Do you have trouble paying your heating and electricity bill?: No Do you have trouble taking care of your child, family member or friend?: No Do you have trouble with day-to-day activities such as bathing, preparing meals, shopping, managing finances, etc.?: No Are you currently unemployed and looking for a job?: No Are you interested in more education?: No AUDIT C Alcohol Use Questionnaire (AUDIT-C) 1. How often do you have a drink containing alcohol?: Never Total Score: 0 MKUUND-7 AMB Questionnaire MUKUND-7 Date MUKUND - 7 assessed: 08/10/23 Feeling nervous, anxious, or on edge: 2 = More than half the days Not being able to stop or control worryin = Not at all Worrying too much about different things: 0 = Not at all Trouble relaxin = Several days Being so restless that it is hard to sit still: 2 = More than half the days Becoming easily annoyed or irritable: 3 = Nearly every day Feeling afraid as if something awful might happen: 2 = More than half the days Total MUKUND-7 score (0-4 normal; 5-9 mild; 10-14 moderate; 15-21 severe): 10 Source: Developed by Drs. Adonis Li, Riley Driscoll and colleagues, with an educational zulema from [employer]. Physical exam (Primary Care) Vital Signs: Last Vital Signs Pulse 72 08/10/23 09:33 BP 112/78 08/10/23 09:33 Pulse Ox 97 08/10/23 09:33 Oxygen Delivery Method Room Air 08/10/23 09:33 BMI result Body Mass Index 29.4 Tobacco/Smoking Status: Tobacco use Status Tobacco use date assessed 08/10/23 08/10/23 09:51 Patient Tobacco Use Status Current everyday Tobacco 08/10/23 09:51 e-Cigarette/Vaping Use Never Used 08/10/23 09:51 PHQ-9: PHQ-9 Score PHQ-9: Total score 13 08/10/23 09:51 Thrive Assessment: Date of Thrive Assessment Date Thrive assessed 08/10/23 08/10/23 09:51 Extrem Other: Hand: No evidence of entry or exit wound. Full range of motion in all fingers. No tenderness on palpation. Assessment and Plan Assessment & Plan (1) Puncture wound, hand: Code(s): S61.439A - Puncture wound without foreign body of unspecified hand, initial encounter Plan: The wound has completely healed. Coding Level of Care Code Est Pt Level 3 (48913) Diagnoses Puncture wound, hand S61.439A
[2023-08-10 09:33] VITALS: BP 112/78; PULSE 72; O2SAT 97; BMI 29.4
== END 2023-08-10 10:31 | disposition home or self-care (01) ==
PROVIDERS: PCP Internal Medicine; Visit Provider Internal Medicine
DX: S61.431D Puncture wound without foreign body of right hand, subsequent encounter (principal); W29.4XXD Contact with nail gun, subsequent encounter
CPT/HCPCS: 99213

== ENCOUNTER 2023-08-13 15:55 | Outpatient (AMB) | payer OTHER, SELFPAY ==
--- NOTE | 2023-08-13 16:13 | MHC.PC.OV ---
Vital Signs 08/13/23 16:18 08/14/23 09:05 Height 5 ft 4 in Weight 171 lb 5.986 oz BMI 29.4 BP 140/80 H 138/80 Blood Pressure Location Lt brachial Lt brachial Position Sitting Intake Visit Reasons: 4 month f/u Intake Note: Patient here for a 4 month follow up Travel Med Surg Rn Required: No Accompanied by: Self / Same As Patient Allergies No Known Allergies Allergy (Verified 08/13/23 16:32) Medication List - Last Reconciled 08/13/23 by Amparo Waite MD acetaminophen (Tylenol Extra Strength) 500 mg PO Q6H PRN aspirin (Adult Low Dose Aspirin) 81 mg PO DAILY 90 days atorvastatin 80 mg PO BEDTIME 90 days blood sugar diagnostic (FreeStyle Lite Strips) Use 1 test strip once a day blood-glucose meter As directed blood-glucose meter (FreeStyle Lite Meter kit) As directed cyclobenzaprine 10 mg PO BEDTIME ergocalciferol (vitamin D2) 1,250 mcg PO QWEEK 90 days evolocumab (Repatha SureClick) 140 mg subcut Q2W 30 days ezetimibe 10 mg PO DAILY 90 days lamotrigine 25 mg PO lancets As directed metformin ER 500 mg PO BID 90 days nabumetone 500 mg PO BID pioglitazone 15 mg PO DAILY 90 days sertraline 100 mg PO sertraline 50 mg PO DAILY Tobacco use date assessed: 08/10/23 Dental Screening Dental Screen Date: 08/13/23 Did you have a dental visit in the last 12 months?: No Did you have a dental problem in the last 6 months where you did not have access to dental care?: No Was dental information given to patient?: Yes HPI HPI Comments History of Present Illness Details This is a 52-year-old male with diabetes mellitus type 2, mild recurrent major depression, hyperlipidemia and bilateral shoulder pain that comes today complaining of shoulder pain not relieved with Tylenol. I advised to you nabumetone as needed for severe pain. A1c elevated and I will increase Actos from 50 mg to 30 mg. Depression stable with SSRIs. Lipid panel will be order and his LDL goal should be less than 70. LDL was not on goal and Repatha was not approved by insurance. Will start Vascepa. [facility] Medical History Hypovitaminosis D Mild recurrent major depression Right hand pain Depression with anxiety Polyarthralgia Dyslipidemia Diabetes mellitus Elevated hemoglobin Abdominal pain Surgical History (Updated 08/13/23 @ 16:22 by HENRY Phillips) History of hand surgery History of shoulder surgery Family History Mother High blood pressure Diabetes Father No problems noted. Family/Other Mental health disorder Social History Housing: Apartment Alcohol intake: current Alcohol intake frequency: a few times a month Alcohol type: hard liquor Patient Tobacco Use Status: Current everyday Tobacco user Cigarettes Per Day: 5 e-Cigarette/Vaping Use: Never Used Second Hand Smoke Exposure: No service: No 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al status: unemployed Cognitive needs: No Hearing needs: No Vision needs: No Questionnaire PHQ-9 Over the last 2 weeks, how often have you been bothered by any of the following problems? 1. Little interest or pleasure in doing things: several days 2. Feeling down, depressed, or hopeless: nearly every day 3. Trouble falling or staying asleep, or sleeping too much: several days 4. Feeling tired or having little energy: several days 5. Poor appetite or overeating: several days 6. Feeling bad about yourself - or that you are a failure or have let yourself or your family down: more than half the days 7. Trouble concentrating on things, such as reading the newspaper or watching television: not at all 8. Moving or speaking so slowly that other people could have noticed. Or the opposite - being so fidgety or restless that you have been moving around a lot more than usual: more than half the days 9. Thoughts that you would be better off or of hurting yourself in some way: more than half the days Total score: 13 Depression Screening Interpretation: Positive Depression Screening Follow-up: Existing condition and In treatment Depression Screening Done: Yes 55162 - PHQ-9 Billing: Yes Source: Developed by Drs. Adonis Li, Marisol Kumar, Riley Trotter and colleagues, with an educational zulema from [employer]. Thrive Questionnaire Date Thrive assessed: 08/10/23 I am a: Patient What is your living situation today?: I have a steady place to live Within the past 12 months, did the food you bought not last and you didn't have the money to get more?: Never true Within the past 12 months, did you worry whether your food would run out before you got money to buy more?: Never true Do you have trouble paying for medicines?: No Do you have trouble getting transportation to medical appointments?: No Do you have trouble paying your heating and electricity bill?: No Do you have trouble taking care of your child, family member or friend?: No Do you have trouble with day-to-day activities such as bathing, preparing meals, shopping, managing finances, etc.?: No Are you currently unemployed and looking for a job?: No Are you interested in more education?: No THRIVE Score: 0 AUDIT C Alcohol Use Questionnaire (AUDIT-C) 1. How often do you have a drink containing alcohol?: Never Total Score: 0 MUKUND-7 AMB Questionnaire MUKUND-7 Date MUKUND - 7 assessed: 08/10/23 Feeling nervous, anxious, or on edge: 2 = More than half the days Not being able to stop or control worryin = Not at all Worrying too much about different things: 0 = Not at all Trouble relaxin = Several days Being so restless that it is hard to sit still: 2 = More than half the days Becoming easily annoyed or irritable: 3 = Nearly every day Feeling afraid as if something awful might happen: 2 = More than half the days Total MUKUND-7 score (0-4 normal; 5-9 mild; 10-14 moderate; 15-21 severe): 10 Source: Developed by Drs. Adonis Li, Marisol Kumar, Riley Tortter and colleagues, with an educational zulema from [employer]. MUKUND-7 Assessment Billing MUKUND-7 Assessment Tool: MUKUND-7 Assessment 70002 Review of Systems Const All systems reviewed & are unremarkable except as noted in HPI and below Eyes Reports no additional complaints, Denies change in vision and Denies other visual disturbances Card Denies chest pain at rest, Denies chest pain with activity, Denies edema, Denies irregular heart rhythm, Denies claudication, Denies dyspnea, Denies dyspnea on exertion, Denies orthopnea, Denies paroxysmal nocturnal dyspnea and Denies slow heart rate Resp Denies cough, Denies dyspnea and Denies dyspnea on exertion GI Denies abdominal pain, Denies change in bowel habits, Denies excessive flatus, Denies nausea and Denies vomiting Denies urinary hesitancy, Denies urinary incontinence and Denies urinary urgency Musc Denies abnormal gait, Denies atrophy, Denies deformity and Denies limited range of motion Skin/Breast Denies bleeding lesions, Denies changing lesions and Denies rash Neuro Denies abnormal gait, Denies behavioral changes and Denies lack of coordination Psych Denies behavioral changes Physical exam (Primary Care) Vital Signs: Last Vital Signs BP 140/80 H 08/13/23 16:18 BMI result Body Mass Index 29.4 Tobacco/Smoking Status: Tobacco use Status Tobacco use date assessed 08/10/23 08/13/23 16:15 Patient Tobacco Use Status Current everyday Tobacco 08/13/23 16:15 e-Cigarette/Vaping Use Never Used 08/13/23 16:15 PHQ-9: PHQ-9 Score PHQ-9: Total score 13 08/13/23 16:34 Depression Screening Interpretation: Positive Depression Screening Follow-up: Existing condition and In treatment Thrive Assessment: Date of Thrive Assessment Date Thrive assessed 08/10/23 08/13/23 16:15 Eyes General: appearance normal, both eyes and all related structures Eyelids: Yes eyelids normal Conjunctivae: conjunctivae normal Neck Neck: Yes normal visual inspection and Yes supple Resp Effort & Inspection: normal respiratory effort Auscultation: clear to auscultation bilaterally Cardio Jugular venous distension: no JVD Rate: regular rate Rhythm: regular rhythm Heart sounds: S1 normal heart sound present and S2 normal heart sound present Psych Appearance: grossly normal Results AMB Hemoglobin A1c AMB Hemoglobin A1c 8.9 % Last Edit by HENRY Phillips on 08/13/23 16:27 Results Reviewed Results Reviewed: Laboratory Last Values Hgb A1c (Clinic) 8.9 % (4.0-6.0) H 08/13/23 16:13 Assessment and Plan Assessment & Plan (1) Mild recurrent major depression: Code(s): F33.0 - Major depressive disorder, recurrent, mild Plan: Continue SSRIs. (2) Hyperlipidemia LDL goal <70: Code(s): E78.5 - Hyperlipidemia, unspecified Plan: Continue statins. Continue Zetia. Start Vascepa. LDL goal is less than 70. (3) Diabetes mellitus: Code(s): E11.9 - Type 2 diabetes mellitus without complications Qualifiers: Diabetes mellitus type: type 2 Diabetes mellitus detention insulin use: without keno terminal operator use Diabetes mellitus complication status: without complication Qualified Code(s): E11.9 - Type 2 diabetes mellitus without complications Plan: Continue metformin. Increase Actos from 50 mg to 30 mg. A1c goal is equal or less than 7%. (4) Shoulder pain, bilateral: Code(s): M25.511 - Pain in right shoulder; M25.512 - Pain in left shoulder Plan: Use nabumetone when severe pain as needed. Orders: Orders Lipid Panel 08/13/23 E78.5 - Hyperlipidemia, unspecified Microalbumin, Random (w Creat) 08/13/23 E11.9 - Type 2 diabetes mellitus without complications Vitamin D 25-OH Total 08/13/23 E55.9 - Vitamin D deficiency, unspecified AMB Hemoglobin A1c 08/13/23 E11.9 - Type 2 diabetes mellitus without complications Comprehensive [place]. Panel Fast 08/13/23 E11.9 - Type 2 diabetes mellitus without complications Lipoprotein A 08/13/23 E78.5 - Hyperlipidemia, unspecified Lipoprotein Asso Phospholip A2 08/13/23 E78.5 - Hyperlipidemia, unspecified Apolipoprotein B 08/13/23 E78.5 - Hyperlipidemia, unspecified Medications: New icosapent ethyl (Vascepa) 2 grams (4 x 0.5 gram) PO BID 90 days 720 caps 0RF Changed From metformin ER 500 mg PO BID 90 days 180 tabs 2RF To metformin ER 1,000 mg (2 x 500 mg) PO BID 90 days 360 tabs 2RF Discontinued pioglitazone Discontinued Reason: Patient Completed Course 15 mg PO DAILY 90 days 90 tabs 1RF Coding Level of Care Code Est Pt Level 4 (28527) Diagnoses Mild recurrent major depression F33.0 Hyperlipidemia LDL goal <70 E78.5 Type 2 diabetes mellitus without complication, without long-term current use of insulin E11.9 Diabetes mellitus type: type 2 Diabetes mellitus detention insulin use: without detention use Diabetes mellitus complication status: without complication Shoulder pain, bilateral M25.511; M25.512 Additional Codes MUKUND-7 Assessment Billing - MUKUND-7 Assessment Tool: MUKUND-7 Assessment 98412 ([id number]) Time Spent (min) 23
[2023-08-13 16:18] VITALS: BP 140/80; BMI 29.4
[2023-08-14 09:05] VITALS: BP 138/80
== END 2023-08-13 16:43 | disposition home or self-care (01) ==
PROVIDERS: PCP Internal Medicine; Visit Provider Internal Medicine
DX: E11.9 Type 2 diabetes mellitus without complications (principal)
CPT/HCPCS: 83036; 96127; 99214

== ENCOUNTER 2023-09-11 09:18 | Outpatient (REF) | payer OTHER, SELFPAY ==
[2023-09-11 10:18] LABS: Microalbum/Creatinine Ratio Ur 4.1 ug/mg cr (<30)
[2023-09-11 10:31] LABS: Alanine Aminotransferase 23 U/L (0-40); Albumin Level 4.1 g/dL (3.5-5.0); Alkaline Phosphatase 42 U/L (39-117); Anion Gap 10 (12-20); Aspartate Amino Transferase 17 U/L (5-37); Bilirubin Total 0.5 mg/dL (0.0-1.0); Blood Urea Nitrogen 14 mg/dL (9-16); Calcium 9.2 mg/dL (8.4-10.2); Carbon Dioxide 29 mmol/L (22-29); Chloride 107 mmol/L (96-108); Cholesterol 166 mg/dL (<200); Estimated Glomerular Filt Rate > 60; Glucose Fasting 142 mg/dL (60-99); HDL Cholesterol 56 mg/dL (>40); LDL Cholesterol Calculated 98 mg/dL (<100); Potassium 4.5 mmol/L (3.3-5.1); Sodium 141 mmol/L (135-145); Total Protein 6.9 g/dL (6.5-8.0); Triglycerides 64 mg/dL (<150)
[2023-09-11 10:49] LABS: Vitamin D 25-OH Total 25.5 ng/mL (>30)
[2023-09-15 11:11] LABS: Apolipoprotein B 81 mg/dL (<90)
[2023-09-16 08:43] LABS: Lipoprotein Asso Phospholip A2 92 (<124)
[2023-09-16 15:03] LABS: Lipoprotein A 170 nmol/L (<75)
== END 2023-09-11 09:19 | disposition home or self-care (01) ==
LOC: HO.LAB 09:18
PROVIDERS: PCP Internal Medicine; Visit Provider Internal Medicine
DX: E11.9 Type 2 diabetes mellitus without complications (principal); E78.5 Hyperlipidemia, unspecified; E55.9 Vitamin D deficiency, unspecified
CPT/HCPCS: 36415; 80053; 80061; 82043; 82172; 82306; 82570; 83695; 83698

== ENCOUNTER 2023-10-23 10:14 | Outpatient (AMB) | payer OTHER, SELFPAY ==
[2023-10-23 10:26] VITALS: BMI 29.3
--- NOTE | 2023-10-23 10:26 | MHC.OFFVIS ---
Intake Vital Signs 10/23/23 10:26 Height 5 ft 4 in Weight 171 lb BMI 29.3 Intake Visit Reasons: new-prob Pain in right shoulder Intake Note: Oly 53 yr old right hand dominant male presents today for a new problem for his right shoulder pain. States his pain started 04/2023 while he was put up his AC in his home. He felt like his shoulder dislocated and was seen at [facility] with Dr Bowman. He was suppose to have sx with in August for his dislocation and and small fracture however his A1C was elevated and had to be canceled. Currently he is still having pain. He was Rx'd tramadol but doesn't relief his pain. States he was referred by his PCP. Allergies No Known Allergies Allergy (Verified 10/23/23 10:31) HPI new-prob Pain in right shoulder HPI Details 53-year-old right hand dominant male who presents to the office today with an bridges supervisor for evaluation of right shoulder pain. He states he was lifting the AC at home in April 2023 when he felt like his shoulder dislocated. He was seen by Dr. Ny at [facility] where he was supposed to have a shoulder surgery in August 2023 however it was canceled due to elevated A1C levels. He was also seen by his PCP who referred him to our office. He currently states he has pain in his shoulder and also experiences his shoulder will get out of its position. He has not had any physical therapy in the past. He was also given tramadol for his pain which did not provide him any relief. He has a history of diabetes. His last A1c as of July was 8.9. His sugar level was 130 this morning. [facility] Medical History Hypovitaminosis D Mild recurrent major depression Right hand pain Depression with anxiety Polyarthralgia Dyslipidemia Diabetes mellitus Elevated hemoglobin Abdominal pain Surgical History (Updated 08/13/23 @ 16:22 by HENRY Phillips) History of hand surgery History of shoulder surgery Family History Mother High blood pressure Diabetes Father No problems noted. 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 Tenderness over the bicipital groove and along the deltoid region of the shoulder. Forward flexion to 90, external rotation to 90, internal rotation to S1. 5/5 RTC strength. Negative Mccord and cross body abduction. NVI. Results Reviewed Results Reviewed: Xrays were obtained in the office today and personally reviewed by me of the right shoulder show os acromiale Assessment & Plan Assessment & Plan (1) Rotator cuff tear, right: Code(s): M75.101 - Unspecified rotator cuff tear or rupture of right shoulder, not specified as traumatic Plan Dr Garza was available to see the patient with me today. I explained the procedure in detail along with the length of recovery and rehab course. I explained the risk, benefits and alternatives. Risk including, but not limited to infection, blood clots, bleeding, ongoing pain and stiffness. I explained the use of the sling post op ie: 6 weeks. Discussed the importance of PT post op and performing pendulum exercises immediately after surgery. I answered all their questions and with their understanding they have consented to move forward with Rotator cuff repair Right shoulder with Dr Garza. Orders: Orders XR shoulder RT min 2V Today M25.511 - Pain in right shoulder Patient Instructions: Scribed for Mehran Fernandez PA-C, by Sean Barnes medical leader, on 10/23/2023 at 10:30 AM EST. I, Mehran Fernandez PA-C, have personally reviewed and agree with the information entered by the scribe. Coding Level of Care Code New Pt Level 4 (21511) Diagnoses Rotator cuff tear, right M75.101
== END 2023-10-23 11:48 | disposition home or self-care (01) ==
PROVIDERS: PCP Internal Medicine; Visit Provider Physician Assistant
DX: M75.101 Unspecified rotator cuff tear or rupture of right shoulder, not specified as traumatic (principal)
CPT/HCPCS: 99204

== ENCOUNTER 2023-10-23 10:14 | Outpatient (REF) | payer OTHER, SELFPAY ==
--- NOTE | ~2023-10-23 | XR_ITS ---
EXAMINATION: XR SHOULDER, RIGHT CLINICAL INFORMATION: Pain. COMPARISON: None available. TECHNIQUE: AP neutral, scapula Y and axillary views of the right shoulder are submitted. FINDINGS: Bony alignment and mineralization are normal. No fracture or dislocation is seen. There is incomplete fusion of the acromion process, with preacromial and mesoacromial segment is noted. The glenohumeral joint is intact and shows very mild osteoarthritic change. The acromioclavicular and coracoclavicular intervals are normal. No abnormal soft tissue calcifications. XR/XR shoulder RT min 2V IMPRESSION: 1. There is very mild osteoarthritic change of the glenohumeral joint. 2. No acute fracture or dislocation is seen.
== END 2023-10-23 10:15 | disposition home or self-care (01) ==
LOC: HO.HOSX 10:14
PROVIDERS: Visit Provider Physician Assistant
DX: M75.101 Unspecified rotator cuff tear or rupture of right shoulder, not specified as traumatic (principal)
CPT/HCPCS: 73030; 99202

== ENCOUNTER 2023-10-28 09:22 | Outpatient (REF) | payer OTHER, SELFPAY ==
[2023-10-28 11:21] LABS: Estimated Average Glucose 143 mg/dL; Hemoglobin A1c % 6.6 % (<6.0)
[2023-10-28 11:34] LABS: Alanine Aminotransferase 50 U/L (0-40); Albumin Level 4.3 g/dL (3.5-5.0); Alkaline Phosphatase 45 U/L (39-117); Anion Gap 11 (12-20); Aspartate Amino Transferase 28 U/L (5-37); Bilirubin Total 0.9 mg/dL (0.0-1.0); Blood Urea Nitrogen 12 mg/dL (9-16); Calcium 9.6 mg/dL (8.4-10.2); Carbon Dioxide 26 mmol/L (22-29); Chloride 106 mmol/L (96-108); Estimated Glomerular Filt Rate > 60; Glucose Fasting 141 mg/dL (60-99); Potassium 4.2 mmol/L (3.3-5.1); Sodium 139 mmol/L (135-145); Total Protein 7.3 g/dL (6.5-8.0)
== END 2023-10-28 09:23 | disposition home or self-care (01) ==
LOC: HO.LAB 09:22
PROVIDERS: PCP Internal Medicine; Visit Provider Internal Medicine
DX: E11.40 Type 2 diabetes mellitus with diabetic neuropathy, unspecified (principal)
CPT/HCPCS: 36415; 80053; 83036

== ENCOUNTER 2023-11-10 12:56 | Outpatient (AMB) | payer OTHER, SELFPAY ==
--- NOTE | 2023-11-10 12:59 | MHC.OFFVIS ---
Intake Vital Signs 11/10/23 13:00 Height 5 ft 4 in Weight 171 lb 15.369 oz BMI 29.5 BP 120/80 Blood Pressure Location Lt brachial Position Sitting Pulse 94 Intake Visit Reasons: new high cholesterol Intake Note: New patient high cholesterol with ekg c/o chest pain back in Apr was in the ED need also need clearance for shoulder surgery Personnel Research Scientist Required: Yes Personnel Research Scientist Name: jigar augustin Allergies No Known Allergies Allergy (Verified 10/23/23 10:31) Medication List - Last Reconciled 11/10/23 by Marcellus Calvillo MD acetaminophen (Tylenol Extra Strength) 500 mg PO Q6H PRN aspirin (Adult Low Dose Aspirin) 81 mg PO DAILY 90 days atorvastatin 80 mg PO BEDTIME 90 days blood sugar diagnostic (FreeStyle Lite Strips) Use 1 test strip once a day blood-glucose meter As directed blood-glucose meter (FreeStyle Lite Meter kit) As directed cyclobenzaprine 10 mg PO BEDTIME ergocalciferol (vitamin D2) 1,250 mcg PO QWEEK 90 days ezetimibe 10 mg PO DAILY 90 days icosapent ethyl (Vascepa) 2 grams (4 x 0.5 gram) PO BID 90 days lamotrigine 25 mg PO lancets As directed metformin ER 1,000 mg (2 x 500 mg) PO BID 90 days nabumetone 500 mg PO BID sertraline 100 mg PO sertraline 50 mg PO DAILY [sling As directed] tramadol 50 mg PO DAILY 10 days HPI HPI Comments History of Present Illness Details Thank you for referring Terese in cardiology consultation today for management of hyperlipidemia. Patient is a 53-year-old male with prior history of diabetes diagnose about 2 years ago but had high cholesterol before that hyperlipidemia not at goal and was referred here for further evaluation management. Patient has great functional capacity. However injured his right shoulder in his scheduled to undergo right rotator cuff surgery in the near future under general anesthesia. Patient says he is very active and has no exertional symptoms of chest pain or shortness of breath. He says diabetes well managed. Although his last LDL was 98 on high-intensity statin, ezetimibe and recently started Vascepa therapy. He has no cardiac symptoms of chest pain or shortness of breath. Denies any symptoms of palpitations, lightheadedness, syncope. No heart failure symptoms. He describes that in April he had 1 episode of severe sharp chest pain with no clear activity level. He presented emergency room and was found to have no issues. Since then he has been exercising regularly and has no exertional chest pain. [facility] Medical History Hypovitaminosis D Mild recurrent major depression Right hand pain Depression with anxiety Polyarthralgia Dyslipidemia Diabetes mellitus Elevated hemoglobin Abdominal pain Surgical History History of hand surgery History of shoulder surgery Family History Mother High blood pressure Diabetes Father No problems noted. 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 Cognitive needs: No Hearing needs: No Vision needs: No Review of Systems Const Denies chills, Denies daytime sleepiness, Denies fatigue, Denies fever(s), Denies frequent falls, Denies poor appetite, Denies snoring, Denies stops breathing during sleep, Denies weakness, Denies weight gain and Denies weight loss Eyes Denies loss of vision ENT Denies dizziness and Denies hearing loss Card Denies chest pain, Denies claudication, Denies leg edema, Denies lightheadedness, Denies palpitations, Denies dyspnea, Denies dyspnea on exertion and Denies orthopnea Resp Denies cough, Denies excessive phlegm production, Denies dyspnea, Denies dyspnea on exertion, Denies snoring and Denies wheezing GI Denies abdominal pain, Denies hematochezia, Denies change in bowel habits, Denies nausea and Denies vomiting Denies dysuria and Denies urinary frequency Musc Denies arthralgias, Denies muscle weakness, Denies numbness and Denies other (frequent falls) Skin/Breast Denies nail changes and Denies rash Neuro Denies Abnormal speech present, Denies dizziness, Denies frequent falls, Denies loss of vision, Denies memory loss, Denies numbness and Denies weakness Psych Denies depression and Denies memory loss Endo Denies fatigue and Denies palpitations Roly/Lymph Reports easy bruising and Reports other (anemia) Aller/Immun Denies wheezing Physical Exam Vital Signs: Last Vital Signs Pulse 94 11/10/23 13:00 BP 120/80 11/10/23 13:00 BMI result Body Mass Index 29.5 Const General: cooperative, comfortable, no acute distress, well developed, alert, awake, Physically active and other (Muscular) Nutritional Appearance: average body habitus and well nourished Orientation/consciousness: patient oriented x3 Limitations: no limitations HEENT Head: Yes normocephalic and Yes atraumatic Neck Neck: Yes trachea midline, Yes supple and Yes no JVD Resp Effort & Inspection: normal respiratory effort Auscultation: clear to auscultation bilaterally Cardio Jugular venous distension: no JVD Rate: regular rate Rhythm: regular rhythm Heart sounds: S1 normal heart sound present, S2 normal heart sound present, no click, no gallops, no murmurs and no rubs GI Auscultation: normal bowel sounds Skin General skin exam: no rashes or lesions noted Neuro General: patient oriented x3 and no focal motor deficits Speech: No Abnormal speech present Extrem General: Yes no clubbing, cyanosis or edema Psych Appearance: grossly normal Office Procedures EKG Details: EKG shows normal sinus rhythm with normal EKG [id number], Complete Assessment & Plan Assessment & Plan (1) Hyperlipidemia LDL goal <70: Code(s): E78.5 - Hyperlipidemia, unspecified Plan: Patient hyperlipidemia in the setting of diabetes which is consider coronary artery disease equivalent. Agree with goal LDL less than 70 mg/dL. He is on high-intensity statin therapy as well as ezetimibe therapy. I amp taking the liberty to add Bempedoic acid to his regimen to try to target goal LDL less than 70 mg/dL. I have discontinued Vascepa therapy at this point time. Follow-up lipid panel and CRP in 3 months time. He has currently not having any cardiac symptoms and therefore would avoid any further workup at this point time. He would 1 episode of noncardiac chest pain which is sharp in nature many months ago and has had no recurrent chest pain with exertion since then. (2) Preoperative cardiovascular examination: Code(s): Z01.810 - Encounter for preprocedural cardiovascular examination Plan: Preoperative cardiovascular risk factor modification prior to shoulder surgery under general anesthesia. Patient excellent functional status and has no cardiac symptoms with that functional status. No further workup is required for the same. He is currently optimized to undergo the noncardiac surgery with low to intermediate risk for perioperative cardiovascular morbidity mortality. Will follow up in the clinic if need be. Thank you for allowing me to partake in his care Orders: Orders Lipid Panel 3 Months E78.5 - Hyperlipidemia, unspecified, I25.10 - Atherosclerotic heart disease of [place] coronary artery without angina pectoris CRP High Sensitivity 3 Months E78.5 - Hyperlipidemia, unspecified Medications: New bempedoic acid 180 mg PO DAILY 30 tabs 5RF Discontinued icosapent ethyl (Vascepa) Discontinued Reason: Doctor's Order 2 grams (4 x 0.5 gram) PO BID 90 days 720 caps 0RF Coding Level of Care Code New Pt Level 4 (07991) Diagnoses Hyperlipidemia LDL goal <70 E78.5 Preoperative cardiovascular examination Z01.810 CPT Codes EKG - CPT: 75262-[id number], Complete ([id number])
[2023-11-10 13:00] VITALS: BP 120/80; PULSE 94; BMI 29.5
== END 2023-11-10 13:30 | disposition home or self-care (01) ==
PROVIDERS: PCP Internal Medicine; Visit Provider Internal Medicine Cardiovascular Disease
DX: E78.5 Hyperlipidemia, unspecified (principal); Z01.810 Encounter for preprocedural cardiovascular examination
CPT/HCPCS: 93010; 99204

== ENCOUNTER → 2023-11-10 12:56 | Outpatient (BNVA) | payer OTHER, SELFPAY | PROVIDERS: PCP Internal Medicine; Visit Provider Internal Medicine Cardiovascular Disease | DX: Z01.810 Encounter for preprocedural cardiovascular examination (principal); E78.5 Hyperlipidemia, unspecified | CPT/HCPCS: 93005; 99202 ==

== ENCOUNTER 2023-11-16 14:17 | Outpatient (AMB) | payer OTHER, SELFPAY ==
[2023-11-16 14:19] VITALS: BP 110/82; PULSE 97; O2SAT 98; BMI 29.5
--- NOTE | 2023-11-16 14:19 | A.OFFPC_ITS ---
Vital Signs 11/16/23 14:19 Height 5 ft 4 in Weight 172 lb BMI 29.5 BP 110/82 Blood Pressure Location Lt brachial Position Sitting Pulse 97 Pulse Source Pulse Oximeter Pulse Oximetry (%) 98 Oxygen Delivery Method Room Air Intake Visit Reasons: pe Intake Note: Patient is here today for a physical. 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 Required: No Accompanied by: Self / Same As Patient Allergies No Known Allergies Allergy (Verified 11/16/23 14:37) Medication List - Last Reconciled 11/16/23 by Amparo Waite MD acetaminophen (Tylenol Extra Strength) 500 mg PO Q6H PRN aspirin (Adult Low Dose Aspirin) 81 mg PO DAILY 90 days atorvastatin 80 mg PO BEDTIME 90 days bempedoic acid 180 mg PO DAILY blood sugar diagnostic (FreeStyle Lite Strips) Use 1 test strip once a day blood-glucose meter As directed blood-glucose meter (FreeStyle Lite Meter kit) As directed cyclobenzaprine 10 mg PO BEDTIME ergocalciferol (vitamin D2) 1,250 mcg PO QWEEK 90 days ezetimibe 10 mg PO DAILY 90 days lamotrigine 25 mg PO lancets As directed metformin ER 1,000 mg (2 x 500 mg) PO BID 90 days nabumetone 500 mg PO BID sertraline 100 mg PO sertraline 50 mg PO DAILY [sling As directed] tramadol 50 mg PO DAILY 10 days Tobacco use date assessed: 11/16/23 Dental Screening Dental Screen Date: 11/16/23 Did you have a dental visit in the last 12 months?: No Did you have a dental problem in the last 6 months where you did not have access to dental care?: No Was dental information given to patient?: Patient has dentist HPI HPI Comments History of Present Illness Details This is a 53-year-old male with diabetes mellitus type 2 and mild major depression that comes today for his physical exam. A1c within goal. Depression has been stable and he stopped taking sertraline because he is taking tramadol now for his right shoulder pain. Diabetic eye exam was 2022 and already has an appointment for November 2023. Has never had a colonoscopy and will be refer again through open access. [facility] Medical History (Updated 11/16/23 @ 14:51 by Amparo Waite MD) Hypovitaminosis D Mild recurrent major depression Right hand pain Depression with anxiety Polyarthralgia Dyslipidemia Diabetes mellitus Elevated hemoglobin Abdominal pain Surgical History (Updated 11/16/23 @ 14:43 by Amparo Waite MD) History of hand surgery Family History Mother High blood pressure Diabetes Father No problems noted. 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 1. Little interest or pleasure in doing things: not at all 2. Feeling down, depressed, or hopeless: nearly every day 3. Trouble falling or staying asleep, or sleeping too much: several days 4. Feeling tired or having little energy: several days 5. Poor appetite or overeating: several days 6. Feeling bad about yourself - or that you are a failure or have let yourself or your family down: more than half the days 7. Trouble concentrating on things, such as reading the newspaper or watching television: not at all 8. Moving or speaking so slowly that other people could have noticed. Or the opposite - being so fidgety or restless that you have been moving around a lot more than usual: more than half the days 9. Thoughts that you would be better off or of hurting yourself in some way: more than half the days Total score: 12 Depression Screening Interpretation: Positive Depression Screening Follow-up: Existing condition and In treatment Depression Screening Done: Yes 58359 - PHQ-9 Billing: Yes Source: Developed by Drs. Adonis Li, Marisol Kumar, Riley Trotter and colleagues, with an educational zulema from [employer]. Thrive Questionnaire Date Thrive assessed: 11/16/23 I am a: Patient What is your living situation today?: I have a steady place to live Within the past 12 months, did the food you bought not last and you didn't have the money to get more?: Never true Within the past 12 months, did you worry whether your food would run out before you got money to buy more?: Never true Do you have trouble paying for medicines?: No Do you have trouble getting transportation to medical appointments?: No Do you have trouble paying your heating and electricity bill?: No Do you have trouble taking care of your child, family member or friend?: No Do you have trouble with day-to-day activities such as bathing, preparing meals, shopping, managing finances, etc.?: No Are you currently unemployed and looking for a job?: No Are you interested in more education?: No THRIVE Score: 0 AUDIT C Alcohol Use Questionnaire (AUDIT-C) 1. How often do you have a drink containing alcohol?: Monthly or less 2. How many drinks containing alcohol do you have on a typical day when you are drinking?: 1 or 2 3. How often do you have six or more drinks on one occasion?: Never Total Score: 1 Score Reviewed/Action Taken: No MUKUND-7 AMB Questionnaire MUKUND-7 Date MUKUND - 7 assessed: 11/16/23 Feeling nervous, anxious, or on edge: 2 = More than half the days Not being able to stop or control worryin = Not at all Worrying too much about different things: 0 = Not at all Trouble relaxin = Several days Being so restless that it is hard to sit still: 2 = More than half the days Becoming easily annoyed or irritable: 3 = Nearly every day Feeling afraid as if something awful might happen: 2 = More than half the days Total MUKUND-7 score (0-4 normal; 5-9 mild; 10-14 moderate; 15-21 severe): 10 Source: Developed by Drs. Adonis Li, Marisol Kumar, Riley Trotter and colleagues, with an educational zulema from [employer]. MUKUND-7 Assessment Billing MUKUND-7 Assessment Tool: MUKUND-7 Assessment 67074 Review of Systems Const All systems reviewed & are unremarkable except as noted in HPI and below Eyes Reports no additional complaints, Denies change in vision and Denies other visual disturbances Card Denies chest pain at rest, Denies chest pain with activity, Denies edema, Denies irregular heart rhythm, Denies claudication, Denies dyspnea, Denies dyspnea on exertion, Denies orthopnea, Denies paroxysmal nocturnal dyspnea and Denies slow heart rate Resp Denies cough, Denies dyspnea and Denies dyspnea on exertion Physical exam (Primary Care) Vital Signs: Last Vital Signs Pulse 97 11/16/23 14:19 BP 110/82 11/16/23 14:19 Pulse Ox 98 11/16/23 14:19 Oxygen Delivery Method Room Air 11/16/23 14:19 BMI result Body Mass Index 29.5 Tobacco/Smoking Status: Tobacco use Status Tobacco use date assessed 11/16/23 11/16/23 14:24 Patient Tobacco Use Status Current everyday Tobacco 11/16/23 14:24 e-Cigarette/Vaping Use Never Used 11/16/23 14:24 PHQ-9: PHQ-9 Score PHQ-9: Total score 12 11/16/23 14:24 Depression Screening Interpretation: Positive Depression Screening Follow-up: Existing condition and In treatment Thrive Assessment: Date of Thrive Assessment Date Thrive assessed 11/16/23 11/16/23 14:24 Const Orientation/consciousness: patient oriented x3 HENMT Head: Yes normal to inspection, Yes normocephalic and Yes atraumatic Ears: external ears normal Eyes General: appearance normal, both eyes and all related structures Eyelids: Yes eyelids normal Conjunctivae: conjunctivae normal Neck Neck: Yes normal visual inspection and Yes supple Resp Effort & Inspection: normal respiratory effort Auscultation: clear to auscultation bilaterally Cardio Jugular venous distension: no JVD Rate: regular rate Rhythm: regular rhythm Heart sounds: S1 normal heart sound present and S2 normal heart sound present GI Inspection: Yes normal to inspection Palpation (GI): Soft to palpation and nontender Auscultation: normal bowel sounds Skin General skin exam: no rashes or lesions noted Neuro General: patient oriented x3 and no focal motor deficits Extrem General: Yes full ROM Right upper extremity: shoulder/upper arm Details: tenderness and abnormal ROM Details: pain with active ROM Details: in ADduction and in extension Psych Appearance: grossly normal Assessment and Plan Assessment & Plan (1) Physical exam: Code(s): Z00.00 - Encounter for general adult medical examination without abnormal findings Plan: Repeat in a year. (2) Diabetes mellitus: Code(s): E11.9 - Type 2 diabetes mellitus without complications Qualifiers: Diabetes mellitus type: type 2 Diabetes mellitus intermediate manager insulin use: without prison use Diabetes mellitus complication status: without complication Qualified Code(s): E11.9 - Type 2 diabetes mellitus without complications Plan: Continue metformin. A1c goal is equal or less than 7%. (3) Mild recurrent major depression: Code(s): F33.0 - Major depressive disorder, recurrent, mild Plan: All sertraline for now. Orders: Orders Microalbumin, Random (w Creat) 4 Months E11.9 - Type 2 diabetes mellitus without complications Vitamin D 25-OH Total 4 Months E55.9 - Vitamin D deficiency, unspecified Comprehensive [place]. Panel Fast 4 Months Z00.00 - Encounter for general adult medical examination without abnormal findings Lipid Panel 4 Months E78.5 - Hyperlipidemia, unspecified Referrals Open Access Screening Colonoscopy Referral Z12.11 - Encounter for screening for malignant neoplasm of colon Coding Level of Care Code Est Pt Prev Care 40-64y(97232) Diagnoses Physical exam Z00.00 Type 2 diabetes mellitus without complication, without long-term current use of insulin E11.9 Diabetes mellitus type: type 2 Diabetes mellitus intermediate manager insulin use: without prison use Diabetes mellitus complication status: without complication Mild recurrent major depression F33.0 Additional Codes MUKUND-7 Assessment Billing - MUKUND-7 Assessment Tool: MUKUND-7 Assessment 43611 ([id number]) Time Spent (min) 32
== END 2023-11-16 14:55 | disposition home or self-care (01) ==
LOC: HO.HMGH 14:18
PROVIDERS: PCP Internal Medicine; Visit Provider Internal Medicine
DX: Z00.00 Encounter for general adult medical examination without abnormal findings (principal); E11.9 Type 2 diabetes mellitus without complications; F33.0 Major depressive disorder, recurrent, mild; E55.9 Vitamin D deficiency, unspecified
CPT/HCPCS: 99396

== ENCOUNTER 2023-12-03 09:47 | Outpatient (AMB) | payer OTHER, SELFPAY ==
--- NOTE | 2023-12-03 09:56 | A.OFFVIS_ITS ---
Vital Signs 12/03/23 10:00 Height 5 ft 4 in Weight 172 lb BMI 29.5 Intake Visit Reasons: Preop RT RTC 12/09/23 NE Intake Note: Terese is a 53 year old male who presents today for a pre op appointment for his RT RTC 12/09/23 NE. Allergies No Known Allergies Allergy (Verified 12/03/23 09:56) HPI HPI Preop RT RTC 12/09/23 NE: Details: 53-year-old right hand dominant male, who is [place] speaking, presents in the office today for his preoperative history and physical exam prior to a right shoulder rotator cuff repair to be performed on 12/09/[address] Navarro Garza. Denies taking an injectable diabetes medication. Patient has no known allergy history. Patient is currently taking, as follows: -Acetaminophen 500 mg PO Q6H PRN -Aspirin 81 mg PO daily -Atorvastatin 80 mg PO bedtime -Bempedoic acid 180 mg PO daily -Cyclobenzaprine 10 mg PO bedtime -Ergocalciferol 1,250 mcg PO QWeek -Ezetimibe 10 mg PO daily -Lamotrigine 25 mg PO PRN -Metformin ER 1,000 mg PO BID -Nabumetone 500 mg PO BID -Sertraline 100 mg PO -Sertraline 50 mg PO daily -Tramadol 50 mg PO daily Patient has a medical history, as follows: -Epistaxis -Hyperlipidemia -Hyperkalemia -Hypovitaminosis D -Mild recurrent major depression -Anxitey -Polyarthralgia -Dyslipidemia -Diabetes mellitus Patient has a surgical history, as follows: -History of hand surgery 05/2023 Patient has a social history, as follows: -Alcohol: Few times monthly PFSH Medical History (Updated 12/03/23 @ 10:07 by Berenice Bustillos) Hypovitaminosis D Mild recurrent major depression Right hand pain Depression with anxiety Polyarthralgia Dyslipidemia Diabetes mellitus Elevated hemoglobin Abdominal pain Surgical History (Updated 11/16/23 @ 14:43 by Amparo Waite MD) History of hand surgery Family History Mother High blood pressure Diabetes Father No problems noted. 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 Cognitive needs: No Hearing needs: No Vision needs: No Review of Systems Const All systems reviewed & are unremarkable except as noted in HPI and below Physical Exam Vital Signs: BMI result Body Mass Index 29.5 Const General: cooperative, healthy appearing, comfortable, no acute distress, well developed, alert and awake Orientation/consciousness: patient oriented x3 HEENT Head: Yes normal to inspection, Yes normocephalic and Yes atraumatic Eyes General: appearance normal, both eyes and all related structures Neck Neck: Yes normal visual inspection and Yes no lymphadenopathy Resp Effort & Inspection: normal respiratory effort and able to speak in complete sentences Cardio Rate: regular rate Peripheral pulses: Peripheral pulses 2+ throughout GI Inspection: Yes normal to inspection Palpation (GI): Soft to palpation Skin General skin exam: no rashes or lesions noted Neuro General: patient oriented x3 Extrem Other: Right shoulder normal to inspection. Tenderness over the bicipital groove and along the deltoid region of the shoulder. Forward flexion to 90, external rotation to 90, internal rotation to S1. 5/5 RTC strength. Negative Mccord and cross body abduction. NVI. Psych Mental Status: mental status grossly normal Assessment & Plan Assessment & Plan (1) Rotator cuff tear, right: Code(s): M75.101 - Unspecified rotator cuff tear or rupture of right shoulder, not specified as traumatic Category: Medical Qualifiers: Rotator cuff tear extent: unspecified tear extent Rotator cuff tear trauma status: unspecified whether traumatic Qualified Code(s): M75.101 - Unspecified rotator cuff tear or rupture of right shoulder, not specified as traumatic Plan Mr. Bell is a 53-year-old right hand dominant male, who is [place] speaking, presents in the office today for his preoperative history and physical exam prior to a right shoulder rotator cuff repair to be performed on 12/09/[address] Navarro Garza. Denies taking an injectable diabetes medication. Patient has no known allergy history. Patient is currently taking, as follows: -Acetaminophen 500 mg PO Q6H PRN -Aspirin 81 mg PO daily -Atorvastatin 80 mg PO bedtime -Bempedoic acid 180 mg PO daily -Cyclobenzaprine 10 mg PO bedtime -Ergocalciferol 1,250 mcg PO QWeek -Ezetimibe 10 mg PO daily -Lamotrigine 25 mg PO PRN -Metformin ER 1,000 mg PO BID -Nabumetone 500 mg PO BID -Sertraline 100 mg PO -Sertraline 50 mg PO daily -Tramadol 50 mg PO daily Patient has a medical history, as follows: -Epistaxis -Hyperlipidemia -Hyperkalemia -Hypovitaminosis D -Mild recurrent major depression -Anxitey -Polyarthralgia -Dyslipidemia -Diabetes mellitus Patient has a surgical history, as follows: -History of hand surgery 05/2023 Patient has a social history, as follows: -Alcohol: Few times monthly I discussed in detail the procedure and what to expect pre and post operatively. We discussed the risks, benefits and alternatives to the surgery and the rehabilitation course. The risks include infection, bleeding, nerve injury, ongoing pain, swelling, and stiffness, perioperative risk of injury to bones and soft tissues, and blood clots. I have answered all questions and with their understanding they have consented to move forward with a right shoulder rotator cuff repair to be performed on 12/09/[address] Navarro Garza. Post operative medications were sent to the pharmacy, Oxycodone-acetaminophen 5- 325 mg (Percocet) PO Q4-6H PRN, quantity 42 tabs for 7 days and Morphine ER 15 mg (MS Contin) PO Q12H PRN, quantity 6 tabs for 3 days, while in the office today. The patient was instructed that he should obtain the prescription prior to surgery but should not consume until after the procedure; as these should only be taken for post operative pain management. Should the patient take these medications before surgery, a refill will not be sent to the pharmacy until their scheduled refill date. Follow-up will be at the post operative appointment on 12/17/2023 at 2:45 pm, or sooner if needed. Patient was fitted for a sling for after surgery. Handout for postoperative exercises to begin the day (12/10/2023) after surgery were supplied to the patient in the office today. Medications: New oxycodone-acetaminophen 5-325 mg (Percocet) Partial Fill upon patient request. 1 tab PO Q4-6H PRN 42 tabs 0RF pain 7 days morphine ER (MS Contin) Partial Fill upon patient request. 15 mg PO Q12H 6 tabs 0RF 3 days Patient Instructions: Scribed by Berenice Bustillos medical instructor, for Naz Winslow PA-C on 12/03/2023 at 9:49 am, EST. Coding Level of Care Code Global (74963) Diagnoses Tear of right rotator cuff, unspecified tear extent, unspecified whether traumatic M75.101 Rotator cuff tear extent: unspecified tear extent Rotator cuff tear trauma status: unspecified whether traumatic
[2023-12-03 10:00] VITALS: BMI 29.5
== END 2023-12-03 10:43 | disposition home or self-care (01) ==
PROVIDERS: PCP Internal Medicine; Visit Provider Physician Assistant
DX: M75.101 Unspecified rotator cuff tear or rupture of right shoulder, not specified as traumatic (principal)
CPT/HCPCS: 99024

== ENCOUNTER → 2023-12-03 09:47 | Outpatient (BNVA) | payer OTHER, SELFPAY | PROVIDERS: PCP Internal Medicine; Visit Provider Physician Assistant | DX: M75.101 Unspecified rotator cuff tear or rupture of right shoulder, not specified as traumatic (principal) | CPT/HCPCS: 99212 ==

== ENCOUNTER 2023-12-09 05:52 | Day surgery (SDC) | payer OTHER, SELFPAY ==
[2023-12-07 10:22] VITALS: BMI 29.5
--- NOTE | 2023-12-07 14:10 | HO.ANESPROP2 ---
Documented by User: Cleopatra [place] NP 12/07/23 14:11 HPI - Anesthesia Eval Consult details Narrative: 53yo M for Right Arthroscopic Rotator Cuff Repair Cardiac cleared PMFSH Active Problems Active Problems: All Active Problems Rotator cuff tear, right (Acute) Chest pain (Acute) Shoulder pain, bilateral (Acute) Cramp of both lower extremities (Acute) Physical exam (Acute) Cramping of hands (Acute) Bilateral hand numbness (Acute) Epistaxis (Acute) Trigger finger of all digits of both hands (Acute) Hyperlipidemia LDL goal <70 (Acute) Hyperkalemia (Acute) Hypovitaminosis D (Acute) Mild recurrent major depression (Acute) Right hand pain (Acute) Depression with anxiety (Acute) Polyarthralgia (Acute) Dyslipidemia (Acute) Diabetes mellitus (Acute) Abdominal pain (Acute) Past Medical History Medical History Hypovitaminosis D Mild recurrent major depression Right hand pain Depression with anxiety Polyarthralgia Dyslipidemia Diabetes mellitus Elevated hemoglobin Abdominal pain Family History Family History Mother High blood pressure Diabetes Father No problems noted. 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 Cognitive needs: No Hearing needs: No Vision needs: No Meds Allergies Allergy/AdvReac Type Severity Reaction Status Date / Time No Known Allergies Allergy Verified 12/03/23 09:56 Home Medications ?Medication ?Instructions ?Recorded ?Confirmed ?Last Taken ?Type blood-glucose meter #1 ea 07/16/20 11/16/23 Unknown History lancets 28 gauge #100 ea 07/16/20 11/16/23 Unknown History sertraline 25 mg tablet 50 mg PO DAILY 10/10/21 12/07/23 Unknown History lamotrigine 25 mg tablet 25 mg PO BID 09/10/22 12/07/23 Unknown History sertraline 100 mg tablet 100 mg PO DAILY 09/10/22 12/07/23 Unknown History nabumetone 500 mg tablet 500 mg PO BID 11/13/22 12/07/23 Unknown History acetaminophen 500 mg oral powder 500 mg PO Q6H PRN Pain 04/30/23 12/07/23 Unknown History packet (Tylenol Extra Strength) cyclobenzaprine 10 mg tablet 10 mg PO BEDTIME 04/30/23 12/07/23 Unknown History Exam Height,Weight and Vital Signs: Height 5 ft 4 in Weight 78.018 kg Pertinent Lab Results Pertinent Lab Results: Laboratory Tests 04/30/23 10/28/23 12:39 09:45 WBC 5.8 Hgb 16.7 Hct 49.1 Plt Count 208 Sodium 139 Potassium 4.2 Chloride 106 Carbon Dioxide 26 BUN 12 Creatinine 1.15 Narrative Narrative: EKG 10/2023 NSR @ 94 Assessment and Plan Assessment Anesthesia Assessment: Chart Reviewed Documented by User: Tg García MD 12/09/23 07:38 PMFSH Past Medical History Medical History Hypovitaminosis D Mild recurrent major depression Right hand pain Depression with anxiety Polyarthralgia Dyslipidemia Diabetes mellitus Elevated hemoglobin Abdominal pain Family History Family History Mother High blood pressure Diabetes Father No problems noted. Family/Other Mental health disorder Family history of problems with anesthesia: No Surgical History Surgical History History of hand surgery History of Problems with Anesthesia: No Social History Social History Housing: Apartment Alcohol intake: current Alcohol intake frequency: does not drink Alcohol type: wine and hard liquor Patient Tobacco Use Status: Never used Tobacco Cigarettes Per Day: 5 e-Cigarette/Vaping Use: Never Used Second Hand Smoke Exposure: No Are you DNR?: No Advance Directives: No Advance Directives Information Provided: Yes service: No 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al status: unemployed 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: rt 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 Cognitive needs: No Hearing needs: No Vision needs: No Meds Allergies Allergy/AdvReac Type Severity Reaction Status Date / Time No Known Allergies Allergy Verified 12/03/23 09:56 Home Medications ?Medication ?Instructions ?Recorded ?Confirmed ?Last Taken ?Type blood-glucose meter #1 ea 07/16/20 11/16/23 Unknown History lancets 28 gauge #100 ea 07/16/20 11/16/23 Unknown History sertraline 25 mg tablet 50 mg PO DAILY 10/10/21 12/07/23 Unknown History lamotrigine 25 mg tablet 25 mg PO BID 09/10/22 12/07/23 Unknown History sertraline 100 mg tablet 100 mg PO DAILY 09/10/22 12/07/23 Unknown History nabumetone 500 mg tablet 500 mg PO BID 11/13/22 12/07/23 Unknown History acetaminophen 500 mg oral powder 500 mg PO Q6H PRN Pain 04/30/23 12/07/23 Unknown History packet (Tylenol Extra Strength) cyclobenzaprine 10 mg tablet 10 mg PO BEDTIME 04/30/23 12/07/23 Unknown History Exam Airway Mallampati Class: II TM Dist: >3cm Neck ROM: Full Heart: rrr Lungs: cta Assessment and Plan Assessment Anesthesia Assessment: Anesthesia Plan Discussed Final Anesthetic Review Family History of Problems with Anesthesia: No History of Problems with Anesthesia: No NPO: Yes ASA Class: III Final Preanesthetic Review: No Changes in Pt Med Stat, Meds/Allgs Chart Reviewed, Consent Obtained/Reviewed and Anes Risks/Benef Reviewed Patient Risk: Intermediate Procedure Risk: Intermediate Anesthetic Plan Anesthetic Plan: GA and Regional Block Disposition: Standard PACU
[2023-12-09 06:40] VITALS: BP 125/78; PULSE 76; RESP 18; TEMP 36.8; O2SAT 98; BMI 29.9
[2023-12-09 06:50] LABS: Glucose, Whole Blood 140 mg/dL (60-115)
[2023-12-09] MEDS: Lactated Ringers 1,000 ML 100 ML IVCONT (07:05)
--- NOTE | 2023-12-09 07:35 | MHC.SHP ---
Pre-Procedural Eval Section A - 24 Hr Update-Section A only Date of Service: 12/09/23 The patient is an INPATIENT: No Changes since office visit: No Cold of Flu in the past 2 weeks, No New Medical Problems, No Changes in Medication and No Patient answered all questions The patient has been examined within 24 hours of the surgical procedure. The History & Physical has been completed within 30 days and I have reviewed it.: Yes Section B - Complete if H&P > 30 days Chief Complaint: Unspecified rotator cuff tear or rupture of right Allergies: Allergies Allergy/AdvReac Type Severity Reaction Status Date / Time No Known Allergies Allergy Verified 12/03/23 09:56 Plan I have reviewed the history and physical and performed a pertinent physical examination on my patient. No changes have occurred unless specified. Time Spent With Patient Time: Total time managing care of this patient today ____ minutes.
--- NOTE | 2023-12-09 10:18 | PM.OP ---
Brief Operative Note Date of Service: 12/09/23 Pre-op diagnosis: Right RTC tear Post-op diagnosis: other (RTC tear ([id number] and Supraspinatus with biceps tendon rupture and larbral tear) Procedure: 1) Repair Supraspinatus 2)Repair subscapularis 3)Circumerential labral debridement Implants: Prieto and Nephew double loaded 4.75 x 2 Prieto and Nephew Knotless Helacoil 5.5 x 3 Surgeon: Navarro Garza MD Anesthesia: GETA and regional Was an Anode Machine Operator used for this Procedure?: Yes Anode Machine Operator: Naz Winslow Estimated blood loss (mL): 20 IV fluids (mL): 1,000 Pathology: none sent Condition: stable Disposition: PACU
[2023-12-09 10:32] VITALS: BP 141/83; PULSE 77; RESP 18; TEMP 36.1; O2SAT 92
[2023-12-09 10:35] VITALS: BP 122/74; PULSE 73; RESP 18; O2SAT 92
[2023-12-09 10:40] VITALS: BP 114/64; PULSE 81; RESP 16; O2SAT 96
[2023-12-09 10:45] VITALS: BP 114/72; PULSE 81; RESP 16; O2SAT 96
[2023-12-09 11:00] VITALS: BP 113/65; PULSE 77; RESP 6; TEMP 36.2; O2SAT 95
--- NOTE | 2023-12-09 13:57 | P.OP_ITS ---
Operative Note Operative Note Date of Service: 12/09/23 Narrative: Date of Service: 12/09/23 Pre-op diagnosis: Right RTC tear Post-op diagnosis: other (RTC tear ([id number] and Supraspinatus with biceps tendon rupture and larbral tear) Procedure: 1) Repair Supraspinatus 2)Repair subscapularis 3)Circumerential labral debridement Implants: Prieto and Nephew double loaded 4.75 x 2 Prieto and Nephew Knotless Helacoil 5.5 x 3 Surgeon: Navarro Garza MD Anesthesia: GETA and regional Was an Hoop Punch And Coiler Operator used for this Procedure?: Yes Hoop Punch And Coiler Operator: Naz Winslow Estimated blood loss (mL): 20 IV fluids (mL): 1,000 Pathology: none sent Condition: stable Disposition: PACU Procedure in detail: Patient was brought to the operating room and placed the the beach chair position. All bony prominences were well padded and the limb was prepped and draped in standard sterile fashion. A time out was called to identify proper site, proper procedure and proper surgeon. IV antibiotics per weight were administered. I began by making a posterolateral stab incision with a 15 blade. A blunt trochar was placed into the glenohumeral joint and I insufflated the joint with saline and a 30 degree arthroscope was placed. I established an outside- in anterior portal just distal to the biceps tendon. I then began my inspection of the glenohumeral joint. There was a large degenerative SLAP tear with the biceps absent.. There were minimal cartilage changes at the inferior glenoid without humeral head changes. There was a full thickness undersurface RTC tear. The subcapularis was torn but not retracted. I debrided the loose cartilage of the glenoid and the degenerative labral tearing circumferentially. I then placed a suture tape and a looped suture through the subscapularis. I released it superiorly and debrided the insertion site with a martina. I then placed inserted a 5.5 anchor and reapproximated the subscapularis insertion site. I then removed the trochar and entered the subacromial space. A direct lateral portal was then established and I performed a bursectomy. The cuff was then examined. There was a full thickness tear of the supra and infraspinatus with retraction. The tear was mobile however, I placed two medial row double loaded anchors after using a tap just adjacent to the articular cartilage and then brought the suture limbs ( 8) through the medial cuff. I then debrided the bare area down to bleeding bone and, using a cross bridge configuration, brought 4 limbs to each of two lateral 5.5 anchors. This re-approximated the cuff anatomy anatomically. Once I was satisfied with the repair final images were captured and I performed a 5mm sub acromial decompression with a martina. I removed all instrumentation. Portals were closed with nylon. Patient was placed in an abduction sling, extubated and brought to the recovery room in stable condition. There were no known complications.
== END 2023-12-09 11:40 | disposition home or self-care (01) ==
PROVIDERS: PCP Internal Medicine; Visit Provider Orthopaedic Surgery
PROC: (CPT 29827; principal; 2023-12-09 08:30)
DX: M75.101 Unspecified rotator cuff tear or rupture of right shoulder, not specified as traumatic (principal); M25.59 Pain in other specified joint; E55.9 Vitamin D deficiency, unspecified; E78.5 Hyperlipidemia, unspecified; E87.5 Hyperkalemia; D58.2 Other hemoglobinopathies; R04.0 Epistaxis; E11.9 Type 2 diabetes mellitus without complications; F41.8 Other specified anxiety disorders; Z79.82 Long term (current) use of aspirin; Z79.899 Other long term (current) drug therapy; Z79.84 Long term (current) use of oral hypoglycemic drugs
CPT/HCPCS: 29827; 29826; 82947; C1713; J0131; J0171; J0665; J0690; J1100; J2250; J2405; J2704; J3010

== ENCOUNTER → 2023-12-09 05:52 | Outpatient (BNV) | payer OTHER, SELFPAY | PROVIDERS: PCP Internal Medicine; Visit Provider Orthopaedic Surgery | DX: S46.011A Strain of muscle(s) and tendon(s) of the rotator cuff of right shoulder, initial encounter (principal); S43.431A Superior glenoid labrum lesion of right shoulder, initial encounter | CPT/HCPCS: 29827 ==

== ENCOUNTER 2023-12-17 14:26 | Outpatient (AMB) | payer OTHER, SELFPAY ==
--- NOTE | 2023-12-17 14:33 | A.OFFVIS_ITS ---
Intake Visit Reasons: PO RT RTC 12/09/23 NE Intake Note: Terese is a 53 year old male who presents today for a post op appointment s/p Right RTC 12/09/23 NE. Patient reports he is doing well, still having pain during the day and it is worse at night. Allergies No Known Allergies Allergy (Verified 12/03/23 09:56) HPI HPI PO RT RTC 12/09/23 NE: Details: 53-year-old right hand dominant male, who is Eritrean speaking, presents in the office today 8 days status post right rotator cuff repair supraspinatus and subscapularis with circumferential labral debridement, which was performed on 12/09/[address] Garza. While in the office the patient reports he is doing well. Confirms having pain during the day and states this increases at night. [facility] Medical History Hypovitaminosis D Mild recurrent major depression Right hand pain Depression with anxiety Polyarthralgia Dyslipidemia Diabetes mellitus Elevated hemoglobin Abdominal pain Surgical History History of hand surgery Family History Mother High blood pressure Diabetes Father No problems noted. 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 No ecchymosis, erythema, or edema. Sutures intact. Flexion and abduction to 45 degrees. External rotation to neutral. NVI. Assessment & Plan Assessment & Plan (1) Rotator cuff tear, right: Comment: Right rotator cuff repair 12/09/2023 NE Code(s): M75.101 - Unspecified rotator cuff tear or rupture of right shoulder, not specified as traumatic Category: Surgical Qualifiers: Rotator cuff tear extent: unspecified tear extent Rotator cuff tear trauma status: unspecified whether traumatic Qualified Code(s): M75.101 - Unspecified rotator cuff tear or rupture of right shoulder, not specified as traumatic Plan Mr. Bell is a 53-year-old right hand dominant male, who is Eritrean speaking, presents in the office today 8 days status post right rotator cuff repair supraspinatus and subscapularis with circumferential labral debridement, which was performed on 12/09/[address] Garza. While in the office the patient reports he is doing well. Confirms having pain during the day and states this increases at night. Sutures were removed and steri-stripes were applied. He will attend physical therapy, which an order was placed in the office today. A refill prescription for Percocet 5-325 mg PO Q6H PRN for pain was sent to the pharmacy. Follow up will be in 4 weeks, or sooner if needed. Orders: Orders PT Evaluation and Treatment Today M75.101 - Unspecified rotator cuff tear or rupture of right shoulder, not specified as traumatic Medications: Changed From oxycodone-acetaminophen 5-325 mg (Percocet) Partial Fill upon patient request. 1 tab PO Q4-6H 7 days PRN 42 tabs 0RF pain To oxycodone-acetaminophen 5-325 mg (Percocet) Partial Fill upon patient request. 1 tab PO Q6H PRN 28 tabs 0RF pain 7 days Patient Instructions: Scribed by Berenice Bustillos district medical examiner, for Naz Winslow PA-C on 12/17/2023 at 2:28 pm, EST. Coding Level of Care Code Global (83346) Diagnoses Tear of right rotator cuff, unspecified tear extent, unspecified whether traumatic M75.101 Rotator cuff tear extent: unspecified tear extent Rotator cuff tear trauma status: unspecified whether traumatic
== END 2023-12-17 14:58 | disposition home or self-care (01) ==
PROVIDERS: PCP Internal Medicine; Visit Provider Physician Assistant
DX: M75.101 Unspecified rotator cuff tear or rupture of right shoulder, not specified as traumatic (principal)
CPT/HCPCS: 99024

== ENCOUNTER → 2023-12-17 14:26 | Outpatient (BNVA) | payer OTHER, SELFPAY | PROVIDERS: PCP Internal Medicine; Visit Provider Physician Assistant | DX: M75.101 Unspecified rotator cuff tear or rupture of right shoulder, not specified as traumatic (principal) | CPT/HCPCS: 99212 ==

== ENCOUNTER 2024-01-14 13:45 | Outpatient (AMB) | payer OTHER, SELFPAY ==
--- NOTE | 2024-01-14 14:03 | MHC.OFFVIS ---
Intake Visit Reasons: PO RT RTC 12/09/23 NE Intake Note: Terese is a 53 year old male who presents today for a post op appointment s/p Right RTC 12/09/23 NE. Patient reports he is doing well. Allergies No Known Allergies Allergy (Verified 12/03/23 09:56) HPI HPI PO RT RTC 12/09/23 NE: Details: 6 weeks post op doing well. Compliant with post op PT. PFSH Medical History Hypovitaminosis D Mild recurrent major depression Right hand pain Depression with anxiety Polyarthralgia Dyslipidemia Diabetes mellitus Elevated hemoglobin Abdominal pain Surgical History History of hand surgery Family History Mother High blood pressure Diabetes Father No problems noted. 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 Cognitive needs: No Hearing needs: No Vision needs: No Physical Exam Extrem Other: inc c/d/i ER to 10 deg and active abd to 20 Assessment & Plan Assessment & Plan (1) Rotator cuff tear, right: Comment: Right rotator cuff repair 12/09/2023 NE Code(s): M75.101 - Unspecified rotator cuff tear or rupture of right shoulder, not specified as traumatic Category: Surgical Qualifiers: Rotator cuff tear extent: unspecified tear extent Rotator cuff tear trauma status: unspecified whether traumatic Qualified Code(s): M75.101 - Unspecified rotator cuff tear or rupture of right shoulder, not specified as traumatic Plan: Stiff but otherwise doing well Lg repair protocol. November d/c sling f/u 6 w Coding Level of Care Code Global (28064) Diagnoses Tear of right rotator cuff, unspecified tear extent, unspecified whether traumatic M75.101 Rotator cuff tear extent: unspecified tear extent Rotator cuff tear trauma status: unspecified whether traumatic
== END 2024-01-14 16:06 | disposition home or self-care (01) ==
PROVIDERS: PCP Internal Medicine; Visit Provider Orthopaedic Surgery
DX: M75.101 Unspecified rotator cuff tear or rupture of right shoulder, not specified as traumatic (principal)
CPT/HCPCS: 99024

== ENCOUNTER → 2024-01-14 13:45 | Outpatient (BNVA) | payer OTHER, SELFPAY | PROVIDERS: PCP Internal Medicine; Visit Provider Orthopaedic Surgery | DX: Z47.89 Encounter for other orthopedic aftercare (principal); Z98.890 Other specified postprocedural states | CPT/HCPCS: 99212 ==

== ENCOUNTER 2024-02-25 11:18 | Outpatient (AMB) | payer OTHER, SELFPAY ==
--- NOTE | 2024-02-25 11:22 | A.OFFVIS_ITS ---
Intake Visit Reasons: PO RT RTC 12/09/23 NE Intake Note: Terese is a 53 year old right hand dominant male who presents today for a post operative appointment s/p Right RTC Repair 12/09/23. At his last visit he was instructed to discontinue sling and follow large repair protocol Allergies No Known Allergies Allergy (Verified 02/25/24 11:29) HPI HPI PO RT RTC 12/09/23 NE: Details: 3 mo post op s/p large retracted tear. He is doing well but stiff which is to be expected. [facility] Medical History Hypovitaminosis D Mild recurrent major depression Right hand pain Depression with anxiety Polyarthralgia Dyslipidemia Diabetes mellitus Elevated hemoglobin Abdominal pain Surgical History History of hand surgery Family History Mother High blood pressure Diabetes Father No problems noted. 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 Continue ROM and light strengthening. f/u 3 months Coding Level of Care Code Global (31499) Diagnoses H/O repair of right rotator cuff Z98.890
== END 2024-02-25 12:19 | disposition home or self-care (01) ==
PROVIDERS: PCP Internal Medicine; Visit Provider Orthopaedic Surgery
DX: Z98.890 Other specified postprocedural states (principal)
CPT/HCPCS: 99024

== ENCOUNTER → 2024-02-25 | Outpatient (BNVA) | payer OTHER, SELFPAY | PROVIDERS: PCP Internal Medicine; Visit Provider Orthopaedic Surgery | DX: Z09 Encounter for follow-up examination after completed treatment for conditions other than malignant neoplasm (principal) | CPT/HCPCS: 99212 ==

== ENCOUNTER 2024-03-15 09:00 | Outpatient (RCR) | payer OTHER, SELFPAY ==
--- NOTE | 2023-12-29 12:59 | MHC.PT.EP ---
[facility] [place] Office [place] Office [place] Office [address] Alexey Murillo [address] [phone] F: [phone] F: [phone] F: [phone] F: [phone] Physical Therapy Plan of Care Date of Evaluation: 12/29/23 Date of Surgery: 12/09/23 Diagnosis: s/p R shoulder RTC repair (subscap and supraspinatus) 12/09/23 Assessment: 53 y/o R hand dominant male s/p R RTC Repair on 12/09/23 involving supraspinatus, infraspinatus and subscapularis as well as labral debridement. Pt reports pain and difficulty with 'everything' d/t surgical limitations and pain. He has been compliant with sling except does not wear it when sleeping. Examination shows decreased R shoulder PROM (AROM not assessed d/t surgical restrictions), decreased strength (not formally assessed d/t surgical restrictions), pain, poor scar mobility, and impaired posture. Recommend PT 2x/week for 10 weeks to address impairments, implement HEP, and optimize functional mobility. Educated pt on surgical precautions, sling wear, and POC Frequency and Duration: The patient will be seen 2x/week for 10 weeks Short Term Goals: 5 weeks I with HEP Pt will demonstrate R shoulder flexion >130* to faciliate reaching overhead Group Home Goals: 10 weeks I with HEP and self management of sx Pt will be I with dressing with pain < 3/10 Pt will be demosntrate > 4-/5 R shoulder strength to facilitate ADL's Treatment Plan: Modalities to reduce pain, spasms and effusion. Manual therapy to restore motion and function. Therapeutic exercise to improve strength and flexibility. Neuromuscular re-education for posture and balance. Therapeutic activities to return to functional activities of daily living. Electronically signed by: Melani Velazco PT Please sign and return to therapist. Thank you for your referral.
--- NOTE | 2024-03-15 09:49 | MHC.PT.DC ---
[facility] [place] Office [place] Office [place] Office [address] Alexey Murillo [address] [phone] F: [phone] F: [phone] F: [phone] F: [phone] Physical Therapy Discharge Report Diagnosis: s/p R shoulder RTC repair (subscap and supraspinatus) 12/09/23 Date of Surgery: 12/09/23 Date of Evaluation: 12/29/23 Date of Discharge: 03/15/24 Treatments to Date: 20 Cancellations to Date: 0 No Shows to Date: 0 Discharge Status: Achieved Goals Improved Function Independent with HEP Discharge Summary: Pt has met all goals and reviewed importance of gradually adding resistance methodically at home with HEP. At this time, he shows functional shoulder A/PROM, good strength, and improved functional mobility. No further questions at this time and he is d/c to I HEP. Electronically signed by: Melani Velazco PT Please sign and return to therapist. Thank you for your referral.
== END 2024-03-15 09:49 | disposition home or self-care (01) ==
LOC: HO.PT 09:00
PROVIDERS: PCP Internal Medicine; Visit Provider Physician Assistant
DX: M75.101 Unspecified rotator cuff tear or rupture of right shoulder, not specified as traumatic (principal)
CPT/HCPCS: 97110; 97140; 97161; 97530

== ENCOUNTER 2024-03-18 10:25 | Outpatient (REF) | payer OTHER, SELFPAY ==
[2024-03-18 12:18] LABS: Creatinine Urine 112.75 mg/dL; Microalbum/Creatinine Ratio Ur 21.2 ug/mg cr (<30)
[2024-03-18 12:25] LABS: Alanine Aminotransferase 37 U/L (0-40); Albumin Level 4.2 g/dL (3.5-5.0); Alkaline Phosphatase 52 U/L (39-117); Anion Gap 12 (12-20); Aspartate Amino Transferase 33 U/L (5-37); Bilirubin Total 0.9 mg/dL (0.0-1.0); Blood Urea Nitrogen 10 mg/dL (9-16); Calcium 9.4 mg/dL (8.4-10.2); Carbon Dioxide 25 mmol/L (22-29); Chloride 108 mmol/L (96-108); Cholesterol 172 mg/dL (<200); Estimated Glomerular Filt Rate > 60; Glucose Fasting 172 mg/dL (60-99); HDL Cholesterol 54 mg/dL (>40); LDL Cholesterol Calculated 107 mg/dL (<100); Potassium 4.4 mmol/L (3.3-5.1); Sodium 141 mmol/L (135-145); Triglycerides 55 mg/dL (<150); Vitamin D 25-OH Total 22.8 ng/mL (>30)
[2024-03-21 14:52] LABS: CRP High Sensitivity 0.9 mg/L
== END 2024-03-18 10:26 | disposition home or self-care (01) ==
LOC: HO.LAB 10:25
PROVIDERS: Internal Medicine Cardiovascular Disease; PCP Internal Medicine; Visit Provider Internal Medicine
DX: Z00.00 Encounter for general adult medical examination without abnormal findings (principal); E55.9 Vitamin D deficiency, unspecified; E11.9 Type 2 diabetes mellitus without complications; E78.5 Hyperlipidemia, unspecified
CPT/HCPCS: 36415; 80053; 80061; 82043; 82306; 82570; 86141

== ENCOUNTER 2024-03-22 13:55 | Outpatient (AMB) | payer OTHER, SELFPAY ==
[2024-03-22 14:02] VITALS: BP 110/80; PULSE 90; O2SAT 96; BMI 29.8
--- NOTE | 2024-03-22 14:02 | A.OFFPC_ITS ---
Vital Signs 03/22/24 14:02 Height 5 ft 4 in Weight 173 lb 8 oz BMI 29.8 BP 110/80 Blood Pressure Location Lt brachial Position Sitting Pulse 90 Pulse Source Pulse Oximeter Pulse Oximetry (%) 96 Oxygen Delivery Method Room Air Intake Visit Reasons: dm Dietitian Required: No Accompanied by: Self / Same As Patient Allergies No Known Allergies Allergy (Verified 03/22/24 14:22) Medication List - Last Reconciled 03/22/24 by Amparo Waite MD acetaminophen (Tylenol Extra Strength) 500 mg PO Q6H PRN aspirin (Adult Low Dose Aspirin) 81 mg PO DAILY 90 days atorvastatin 80 mg PO BEDTIME 90 days bempedoic acid 180 mg PO DAILY blood sugar diagnostic (FreeStyle Lite Strips) Use 1 test strip once a day blood-glucose meter As directed blood-glucose meter (FreeStyle Lite Meter kit) As directed cyclobenzaprine 10 mg PO BEDTIME ergocalciferol (vitamin D2) 1,250 mcg PO QWEEK 90 days ezetimibe 10 mg PO DAILY 90 days lamotrigine 25 mg PO BID lancets As directed metformin ER 1,000 mg (2 x 500 mg) PO BID 90 days morphine ER (MS Contin) 15 mg PO Q12H 3 days nabumetone 500 mg PO BID oxycodone-acetaminophen 5-325 mg (Percocet) 1 tab PO Q8H PRN 7 days sertraline 100 mg PO DAILY sertraline 50 mg PO DAILY [sling As directed] tramadol 50 mg PO DAILY 10 days Tobacco use date assessed: 03/22/24 Dental Screening Dental Screen Date: 03/22/24 Did you have a dental visit in the last 12 months?: No Did you have a dental problem in the last 6 months where you did not have access to dental care?: No Was dental information given to patient?: No HPI HPI Comments History of Present Illness Details This is a 53-year-old male with diabetes mellitus type 2, hyperlipidemia, mild major depression and low vitamin-D that comes today for follow-up on his conditions. A1c elevated but he says that his fasting blood glucose is around 120. LDL elevated and dietary changes were advised. Depression stable with sertraline. Vitamin-D has improved but still low and supplements will be sent. No chest pain or shortness on breath. [facility] Medical History Hypovitaminosis D Mild recurrent major depression Right hand pain Depression with anxiety Polyarthralgia Dyslipidemia Diabetes mellitus Elevated hemoglobin Abdominal pain Surgical History History of hand surgery Family History Mother High blood pressure Diabetes Father No problems noted. 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 1. Little interest or pleasure in doing things: not at all 2. Feeling down, depressed, or hopeless: nearly every day 3. Trouble falling or staying asleep, or sleeping too much: several days 4. Feeling tired or having little energy: several days 5. Poor appetite or overeating: several days 6. Feeling bad about yourself - or that you are a failure or have let yourself or your family down: more than half the days 7. Trouble concentrating on things, such as reading the newspaper or watching television: not at all 8. Moving or speaking so slowly that other people could have noticed. Or the opposite - being so fidgety or restless that you have been moving around a lot more than usual: more than half the days 9. Thoughts that you would be better off or of hurting yourself in some way: more than half the days Total score: 12 Depression Screening Interpretation: Positive Depression Screening Follow-up: Existing condition, In treatment and Follow-up Visit Requested Depression Screening Done: Yes 96126 - PHQ-9 Billing: Yes Source: Developed by Drs. Adonis Li, Marisol Kumar, Riley Trotter and colleagues, with an educational zulema from [employer]. Thrive Questionnaire Date Thrive assessed: 03/22/24 I am a: Patient What is your living situation today?: I have a steady place to live Within the past 12 months, did the food you bought not last and you didn't have the money to get more?: Never true Within the past 12 months, did you worry whether your food would run out before you got money to buy more?: Never true Do you have trouble paying for medicines?: No Do you have trouble getting transportation to medical appointments?: No Do you have trouble paying your heating and electricity bill?: No Do you have trouble taking care of your child, family member or friend?: No Do you have trouble with day-to-day activities such as bathing, preparing meals, shopping, managing finances, etc.?: No Are you currently unemployed and looking for a job?: No Are you interested in more education?: No Please select the resources that you would like help with: None Currently or been in a relationship where the following occur: No concerns reported THRIVE Score: 0 AUDIT C Alcohol Use Questionnaire (AUDIT-C) 1. How often do you have a drink containing alcohol?: Monthly or less 2. How many drinks containing alcohol do you have on a typical day when you are drinking?: 1 or 2 3. How often do you have six or more drinks on one occasion?: Never Total Score: 1 Score Reviewed/Action Taken: No MUKUND-7 AMB Questionnaire MUKUND-7 Date MUKUND - 7 assessed: 03/22/24 Feeling nervous, anxious, or on edge: 2 = More than half the days Not being able to stop or control worryin = Not at all Worrying too much about different things: 0 = Not at all Trouble relaxin = Several days Being so restless that it is hard to sit still: 2 = More than half the days Becoming easily annoyed or irritable: 3 = Nearly every day Feeling afraid as if something awful might happen: 2 = More than half the days Total MUKUND-7 score (0-4 normal; 5-9 mild; 10-14 moderate; 15-21 severe): 10 Source: Developed by Drs. Adonis Li, Marisol Kumar, Riley Trotter and colleagues, with an educational zulema from [employer]. MUKUND-7 Assessment Billing MUKUND-7 Assessment Tool: MUKUND-7 Assessment 36582 Review of Systems Const All systems reviewed & are unremarkable except as noted in HPI and below Card Denies chest pain at rest, Denies chest pain with activity, Denies edema, Denies irregular heart rhythm, Denies claudication, Denies dyspnea, Denies dyspnea on exertion, Denies orthopnea, Denies paroxysmal nocturnal dyspnea and Denies slow heart rate Resp Denies cough, Denies dyspnea and Denies dyspnea on exertion GI Denies abdominal pain, Denies change in bowel habits, Denies excessive flatus, Denies nausea and Denies vomiting Denies urinary hesitancy, Denies urinary incontinence and Denies urinary urgency Musc Denies abnormal gait, Denies atrophy, Denies deformity and Denies limited range of motion Skin/Breast Denies bleeding lesions, Denies changing lesions and Denies rash Neuro Denies abnormal gait and Denies lack of coordination Physical exam (Primary Care) Vital Signs: Last Vital Signs Pulse 90 03/22/24 14:02 BP 110/80 03/22/24 14:02 Pulse Ox 96 03/22/24 14:02 Oxygen Delivery Method Room Air 03/22/24 14:02 BMI result Body Mass Index 29.8 Tobacco/Smoking Status: Tobacco use Status Tobacco use date assessed 03/22/24 03/22/24 14:09 Patient Tobacco Use Status Never used Tobacco 03/22/24 14:09 e-Cigarette/Vaping Use Never Used 03/22/24 14:09 PHQ-9: PHQ-9 Score PHQ-9: Total score 12 03/22/24 14:23 Depression Screening Interpretation: Positive Depression Screening Follow-up: Existing condition, In treatment and Follow-up Visit Requested Thrive Assessment: Date of Thrive Assessment Date Thrive assessed 03/22/24 03/22/24 14:09 Currently or been in a relationship where the following occur: No concerns reported Resp Effort & Inspection: normal respiratory effort Auscultation: clear to auscultation bilaterally Cardio Jugular venous distension: no JVD Rate: regular rate Rhythm: regular rhythm Heart sounds: S1 normal heart sound present and S2 normal heart sound present Extrem General: Yes full ROM Results AMB Hemoglobin A1c AMB Hemoglobin A1c 7.7 % Last Edit by HENRY Singh on 03/22/24 14 :22 Results Reviewed Results Reviewed: Laboratory Last Values Hgb A1c (Clinic) 7.7 % (4.0-6.0) H 03/22/24 14:21 Assessment and Plan Assessment & Plan (1) Mild recurrent major depression: Code(s): F33.0 - Major depressive disorder, recurrent, mild Plan: Continue SSRIs. (2) Hyperlipidemia LDL goal <70: Code(s): E78.5 - Hyperlipidemia, unspecified Plan: Continue statins. LDL goal is less than 70. (3) Hypovitaminosis D: Code(s): E55.9 - Vitamin D deficiency, unspecified Plan: Continue vitamin-D supplements. 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 A1c goal is equal less than 7%. Orders: Orders AMB Hemoglobin A1c Today Z13.9 - Encounter for screening, unspecified Microalbumin, Random (w Creat) 4 Months E11.9 - Type 2 diabetes mellitus without complications Comprehensive [place]. Panel Fast 4 Months E11.9 - Type 2 diabetes mellitus without complications Vitamin D 25-OH Total 4 Months E55.9 - Vitamin D deficiency, unspecified Lipid Panel 4 Months E78.5 - Hyperlipidemia, unspecified Medications: New cholecalciferol (vitamin D3) 25 mcg PO DAILY 90 caps 3RF 90 days Discontinued ergocalciferol (vitamin D2) Discontinued Reason: Patient Completed Course 1,250 mcg PO QWEEK 90 days 13 caps 1RF tramadol Discontinued Reason: Patient Completed Course 50 mg PO DAILY 10 days 10 tabs 0RF oxycodone-acetaminophen 5-325 mg (Percocet) Partial Fill upon patient request. Discontinued Reason: Patient Completed Course 1 tab PO Q8H 7 days PRN 21 tabs 0RF pain morphine ER (MS Contin) Partial Fill upon patient request. 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
== END 2024-03-22 14:35 | disposition home or self-care (01) ==
PROVIDERS: PCP Internal Medicine; Visit Provider Internal Medicine
DX: E11.69 Type 2 diabetes mellitus with other specified complication (principal); F33.0 Major depressive disorder, recurrent, mild; E78.5 Hyperlipidemia, unspecified; E55.9 Vitamin D deficiency, unspecified
CPT/HCPCS: 83036; 99214; G2211

== ENCOUNTER 2024-05-30 12:37 | Outpatient (AMB) | payer OTHER, SELFPAY ==
--- NOTE | 2024-05-30 13:11 | A.OFFVIS_ITS ---
Vital Signs 05/30/24 13:13 Height 5 ft 4 in Weight 173 lb BMI 29.7 Intake Visit Reasons: OV RT RTC 12/09/23 NE Intake Note: Terese is a 53 year old right hand dominant male who presents today for a post operative appointment s/p Right RTC Repair 12/09/23. Allergies No Known Allergies Allergy (Verified 03/22/24 14:22) HPI HPI OV RT RTC 12/09/23 NE: Details: Terese is a 53 year old right hand dominant male who presents today for a post operative appointment s/p Right RTC Repair 12/09/23. He has returned to work. He is doing well. He has no complaints. [facility] Medical History Hypovitaminosis D Mild recurrent major depression Right hand pain Depression with anxiety Polyarthralgia Dyslipidemia Diabetes mellitus Elevated hemoglobin Abdominal pain Surgical History History of hand surgery Family History Mother High blood pressure Diabetes Father No problems noted. 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 Continue activity as tolerated no restrictions. Care with heavy overhead lifting. Coding Level of Care Code Est Pt Level 3 (66787) Diagnoses H/O repair of right rotator cuff Z98.890
[2024-05-30 13:13] VITALS: BMI 29.7
== END 2024-05-30 13:45 | disposition home or self-care (01) ==
LOC: HO.HOS 12:38
PROVIDERS: PCP Internal Medicine; Visit Provider Orthopaedic Surgery
DX: S46.011D Strain of muscle(s) and tendon(s) of the rotator cuff of right shoulder, subsequent encounter (principal); S43.431D Superior glenoid labrum lesion of right shoulder, subsequent encounter
CPT/HCPCS: 99212

== ENCOUNTER → 2024-05-30 12:37 | Outpatient (BNVA) | payer OTHER, SELFPAY | PROVIDERS: PCP Internal Medicine; Visit Provider Orthopaedic Surgery | DX: Z98.890 Other specified postprocedural states (principal) | CPT/HCPCS: 99212 ==

== ENCOUNTER 2024-06-30 12:00 | Emergency (ER) | payer OTHER, SELFPAY ==
--- NOTE | ~2024-06-30 | XR_ITS ---
EXAMINATION: XR CHEST CLINICAL INFORMATION: anterior chest wall pain. COMPARISON: 04/30/2023 TECHNIQUE: 2 views of the chest were obtained. FINDINGS: The cardiac, hilar, and mediastinal contours are normal. The lungs are clear bilaterally. There is no pneumothorax or pleural effusion. There is no focal osseous or soft tissue abnormality. There are surgical anchors right humeral head. XR/XR chest 2V IMPRESSION: Normal chest. Electronically signed by: Amari Lopez MD 06/30/2024 01:38 PM EST
--- NOTE | 2024-06-30 12:03 | ECG_ITS ---
Test Reason : CHEST PAIN Blood Pressure : / mmHG Vent. Rate : 096 BPM Atrial Rate : 096 BPM P-R Int : 144 ms QRS Dur : 072 ms QT Int : 322 ms P-R-T Axes : 009 007 012 degrees QTc Int : 406 ms Normal sinus rhythm Normal ECG When compared with ECG of 30-APR-2023 12:23, No significant change was found Referred By: Kristen Wadsworth Electronically Signed By:Rambo Lala
[2024-06-30 12:10] VITALS: BP 144/67; PULSE 93; RESP 16; TEMP 36.6; O2SAT 99
--- NOTE | 2024-06-30 12:10 | ED_ITS ---
HPI - Chest Pain General Chief Complaint: Chest Pain Stated Complaint: Chest pain Time Seen by Provider: 06/30/24 16:07 Source: patient, RN notes reviewed and old records reviewed Mode of arrival: ambulatory History of Present Illness ED Provider: Naima Shirley PA-C HPI narrative: 53-year-old male with a past medical history polyarthralgia, HLD, diabetes, depression/anxiety, presenting to the ED complaining of intermittent left-sided upper chest pain radiating to left neck and down LUE x 4 days. Denies known injury/trauma or fall, does report heavy lifting yesterday however pain preceded this. Admits pain worse with bending down/movement, denies pain being associated with breathing. Denies recent travel, pedal edema, SOB, abdominal pain, nausea/vomiting, weakness Related Data Home Medications ?Medication ?Instructions ?Recorded ?Confirmed blood-glucose meter #1 ea 07/16/20 03/22/24 lancets 28 gauge #100 ea 07/16/20 03/22/24 sertraline 25 mg tablet 50 mg PO DAILY 10/10/21 03/22/24 lamotrigine 25 mg tablet 25 mg PO BID 09/10/22 03/22/24 sertraline 100 mg tablet 100 mg PO DAILY 09/10/22 03/22/24 nabumetone 500 mg tablet 500 mg PO BID 11/13/22 03/22/24 acetaminophen 500 mg oral powder 500 mg PO Q6H PRN Pain 04/30/23 03/22/24 packet (Tylenol Extra Strength) cyclobenzaprine 10 mg tablet 10 mg PO BEDTIME 04/30/23 03/22/24 Previous Rx's ?Medication ?Instructions ?Recorded aspirin 81 mg tablet,delayed 81 mg PO DAILY 90 days #90 tabs 06/12/21 release (Adult Low Dose Aspirin) atorvastatin 80 mg tablet 80 mg PO BEDTIME 90 days #90 tabs 12/04/21 ezetimibe 10 mg tablet 10 mg PO DAILY 90 days #90 tabs 10/09/22 blood sugar diagnostic (FreeStyle #100 ea 03/12/23 Lite Strips) blood-glucose meter (FreeStyle #1 ea 03/18/23 Lite Meter kit) sling #1 ea 10/21/23 bempedoic acid 180 mg tablet 180 mg PO DAILY #30 tabs 12/28/23 cholecalciferol (vitamin D3) 25 25 mcg PO DAILY 90 days #90 caps 03/22/24 mcg (1,000 unit) capsule metformin 500 mg tablet,extended 1,000 mg (2 x 500 mg) PO BID 90 05/12/24 release 24 hr days #360 tabs Allergies Allergy/AdvReac Type Severity Reaction Status Date / Time No Known Allergies Allergy Verified 06/30/24 12:14 Review of Systems 2 Review of Systems: Yes all other systems are reviewed and are negative Constitutional: Constitutional: Reports as per [facility] Past Medical History Attestation statement: The following information was validated with the patient. Source: old records reviewed Medical History Hypovitaminosis D Mild recurrent major depression Right hand pain Depression with anxiety Polyarthralgia Dyslipidemia Diabetes mellitus Elevated hemoglobin Abdominal pain Surgical History History of hand surgery Family History Family History Mother High blood pressure Diabetes Father No problems noted. 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 Cognitive needs: No Hearing needs: No Vision needs: No Physical Exam 2 Vital Signs: Vital Signs: Last Vital Signs Temp 98.5 F 06/30/24 16:41 Pulse 70 06/30/24 16:41 Resp 16 06/30/24 16:41 BP 101/74 06/30/24 16:41 Pulse Ox 98 06/30/24 16:41 O2 Del Method Room Air 06/30/24 16:41 BMI result Body Mass Index 30.0 Const: General: cooperative, healthy appearing and no acute distress O rientation/consciousness: patient oriented x3 Limitations: no limitations HEENT: Head: Yes normal to inspection and Yes atraumatic Ears: hearing grossly normal bilaterally General nose exam: Normal external nose present Face and sinus: Yes normal facial exam Eyes: General: appearance normal, both eyes and all related structures EOM: EOMs intact bilaterally Neck: Neck: Yes normal visual inspection and Yes no meningeal signs Chest: Other: + reproducible left anterior chest wall tenderness reproducing subjective complaint. No erythema/ecchymosis or crepitus. No flail chest Chest palpation & inspection: no crepitus and tenderness Resp: Effort & Inspection: normal respiratory effort and no respiratory distress Auscultation: clear to auscultation bilaterally, no crackles and no wheezes Cardio: Rate: regular rate Heart sounds: S1 normal heart sound present and S2 normal heart sound present GI: Inspection: Yes normal to inspection Palpation (GI): Soft to palpation, nontender, no guarding and not rigid Skin: Rashes: no rashes Wounds: no wounds Neuro: General: patient oriented x3, tone normal and no meningeal signs C ranial nerves: Yes CN's II-XII intact bilaterally Gait exam (Neuro): Normal gait present Extrem: General: Yes normal to inspection, Yes no pedal edema and Yes no calf tenderness Course Course Course Narrative: This is a Rapid Medical Examination (RME) performed by Francisco J Wadsworth PA-C in triage. Full HPI, ROS, assessment and treatment plan per primary provider in the Main ED. 53 yo male here w/ intermittent left sided chest pain with radiation to his left neck and down left arm x4 days. pain originally woke up him from his sleep. has been taking aspirin at home with improvement. states the pain takes his breath away when it comes. worse w/ bending down. no recent heavy lifting or trauma. no known sick contacts. +reproducible tenderness to anterior chest wall. lungs clear. Plan: labs, ekg, CXR -1629-- labs reassuring. Troponin x2 negative, NE unlikely -viral studies negative XR chest 2V IMPRESSION: Normal chest. Results discussed with patient including worrisome signs and symptoms and strict return precautions, and when to return to the emergency department. They verbalized understanding and feel safe for discharge at this time. Medications Administered Discontinued Medications Generic Name Dose Route Start Last Admin Trade Name Freq PRN Reason Stop Dose Admin Ketorolac Tromethamine 30 mg 06/30/24 16:17 06/30/24 16:25 Ketorolac Tromethamine 30 Mg/Ml Vial IM 06/30/24 16:18 30 mg ONCE ONE Administration Medical Decision Making Medical Decision Making [facility] Narrative: 53-year-old male with a past medical history polyarthralgia, HLD, diabetes, depression/anxiety, presenting to the ED complaining of intermittent left-sided upper chest pain radiating to left neck and down LUE x 4 days. On exam vital signs stable, NAD, nontoxic appearing, reproducible chest wall tenderness as listed above, lungs CTA, no pedal edema or calf tenderness. Concern for costochondritis. Pericarditis & myocarditis on differential however lower with pain being intermittent. Lower suspicion for acute ACS, PE/DVT or CHF. Rule out pneumonia or underlying lung pathology/PTX Plan: EKG, labs, CXR, pain control, re-evaluate Please refer to course for remaining clinical decision making, interpretation of labs/imaging results, and discussions with consultants and/or family members. Differential Diagnosis Differential Diagnoses: The differential diagnosis associated with the presentation includes As above Admission/Observation Consideration of admission/observation: Escalation of care including admission/observation considered Lab Data [facility] Lab Attestation statement: I reviewed the patient's lab results. 06/30/24 12:21 06/30/24 12:21 Labs: Lab Results 06/30/24 06/30/24 Range/Units 12:21 15:52 WBC 6.2 (4.8-10.8) X10*3/uL RBC 5.83 H (4.60-5.80) X10*6/uL Hgb 17.1 (14.0-18.0) g/dl Hct 49.0 (42.0-52.0) % MCV 84.0 (80.0-98.0) fL MCH 29.3 (27.0-33.0) pg MCHC 34.9 (31.0-36.0) g/dl RDW 15.0 (11.0-16.0) % Plt Count 218 (160-400) X10*3/uL MPV 11.9 (9.4-12.4) fL Immature Gran % (Auto) 0.3 (0.0-0.4) % Neut % (Auto) 53.7 (45-73) % Lymph % (Auto) 38.0 (20-40) % [place] % (Auto) 6.6 (2-11) % Eos % (Auto) 1.1 (0-4) % Baso % (Auto) 0.3 (0-2) % Lymph # (Auto) 2.4 (1.2-4.9) X10*3/uL [place] # (Auto) 0.4 (0.1-1.2) X10*3/uL Eos # (Auto) 0.1 (0.0-0.4) X10*3/uL Baso # (Auto) 0.0 (0.0-0.2) X10*3/uL Abs Immat Gran (auto) 0.02 (0.00-0.03) X10*3/uL Absolute Neuts (auto) 3.3 (2.0-8.3) x10*3/uL Absolute Nucleated RBC 0.000 (0.0-0.012) X10*3/uL Nucleated RBC % (auto) 0.0 (0.0-0.2) /100WBC PT 11.2 (10.9-12.4) SEC INR 1.0 (0.9-1.1) Sodium 138 (135-145) mmol/L Potassium 4.2 (3.3-5.1) mmol/L Chloride 106 (96-108) mmol/L Carbon Dioxide 26 (22-29) mmol/L Anion Gap 10 L (12-20) BUN 15 (9-16) mg/dL Creatinine 1.33 (0.5-1.4) mg/dL Estim Creat Clear Calc 62.4 Estimated GFR 57 Random Glucose 209 H (60-115) mg/dL Calcium 9.4 (8.4-10.2) mg/dL Magnesium 2.0 (1.6-2.6) mg/dL Total Bilirubin 1.1 H (0.0-1.0) mg/dL AST 35 (5-37) U/L ALT 47 H (0-40) U/L Alkaline Phosphatase 49 (39-117) U/L Troponin I High Sens 3.5 3.8 (<3.5-35.0) ng/L Total Protein 7.4 (6.5-8.0) g/dL Albumin 4.4 (3.5-5.0) g/dL Influenza Type A (PCR) NEGATIVE (Negative) Influenza Type B (PCR) NEGATIVE (Negative) RSV RNA Qual (PCR) NEGATIVE (Negative) SARS-CoV-2 RNA (RT-PCR) NEGATIVE (Negative) Independent Interpretation I performed an independent interpretation of an: EKG (My interpretation EKG normal sinus rhythm rate of 96. MT interval 144. QTC 406. No significant change when compared to prior) and Plain X-Ray Radiology Impression Discussion of test interpretation with radiology: I have reviewed the radiologist's reading. Independent Historian Clinical information obtained from an independent historian. History obtained from or confirmed by: Friend External Record Review External record reviewed: Inpatient record, Office record, Outpatient record, Prior outpatient labs, Prior outpatient radiology, Primary care record and Outside ED record Tests considered The following testing was considered but not selected: As above Prescription Management I considered prescription management with: Pain Medication Chronic Conditions Patient?s care impacted by: Other Social Determinants Patient?s care significantly limited by Social Determinants of Health including: Other Social Determinant of Health Discharge Plan Discharge Clinical Impression: Intermittent chest pain, Costochondritis Patient Disposition: Home, Self-Care Instructions: Costochondritis (ED), Noncardiac Chest Pain (ED) Additional Instructions: Your blood work and x-ray are reassuring You tested negative for COVID, flu, RSV Please take ibuprofen and Tylenol at home for pain Please follow-up with your primary care doctor as well as Cardiology, please call to make an appointment If your symptoms persist or worsen her pain is more constant, you have shortness of breath, or rash return to the ED Prescriptions: No Action atorvastatin 80 mg tablet 80 mg PO BEDTIME 90 Days Qty: 90 1RF ezetimibe 10 mg tablet 10 mg PO DAILY 90 Days Qty: 90 1RF (DME) FreeStyle Lite Strips Strip See Rx Instructions .Route Qty: 100 11RF Rx Instructions: Use 1 test strip once a day (DME) blood-glucose meter [FreeStyle Lite Meter] Kit See Rx Instructions .Route Qty: 1 0RF Rx Instructions: As directed (DME) sling See Rx Instructions .Route .MEDSUPPLY Qty: 1 0RF Rx Instructions: As directed bempedoic acid 180 mg tablet 180 mg PO DAILY Qty: 30 5RF metformin 500 mg tablet extended release 24 hr 1,000 mg PO BID 90 Days Qty: 360 2RF (DME) blood-glucose meter Kit See Rx Instructions .ROUTE TID Qty: 1 Rx Instructions: As directed (DME) lancets 28 gauge misc See Rx Instructions Not Applicable TID Qty: 100 Rx Instructions: As directed aspirin [Adult Low Dose Aspirin] 81 mg tablet,delayed release (DR/EC) 81 mg PO DAILY 90 Days Qty: 90 2RF nabumetone 500 mg tablet 500 mg PO BID sertraline 100 mg tablet 100 mg PO DAILY lamotrigine 25 mg tablet 25 mg PO BID cholecalciferol (vitamin D3) 25 mcg (1,000 unit) capsule 25 mcg PO DAILY 90 Days Qty: 90 3RF sertraline 25 mg tablet 50 mg PO DAILY cyclobenzaprine 10 mg tablet 10 mg PO BEDTIME Tylenol Extra Strength 500 mg powder in packet 500 mg PO Q6H PRN (Reason: Pain) Referrals: [facility] [Provider Group] Amparo Martinez MD [Primary Care Provider] - 1 week Interventions: ED Discharge Assessment Last Done: 06/30/24 16:41 Discharge Date/Time: 06/30/24 16:42 Print Language: Khmer
[2024-06-30 13:16] LABS: MANUAL DIFF FLAG NO
[2024-06-30 13:26] LABS: Basophils Percent Auto 0.3 % (0-2); Eosinophils Absolute Auto 0.1 X10*3/uL (0.0-0.4); Eosinophils Percent Auto 1.1 % (0-4); Hemoglobin 17.1 g/dl (14.0-18.0); Imm Gran Abs Auto 0.02 X10*3/uL (0.00-0.03); Imm Gran Pct Auto 0.3 % (0.0-0.4); Lymphocytes Absolute Auto 2.4 X10*3/uL (1.2-4.9); Mean Corpuscular HGB Conc 34.9 g/dl (31.0-36.0); Mean Corpuscular Hemoglobin 29.3 pg (27.0-33.0); Mean Platelet Volume 11.9 fL (9.4-12.4); Monocytes Absolute Auto 0.4 X10*3/uL (0.1-1.2); Monocytes Percent Auto 6.6 % (2-11); Neutrophils Absolute Auto 3.3 x10*3/uL (2.0-8.3); Neutrophils Percent Auto 53.7 % (45-73); Platelet Count 218 X10*3/uL (160-400); Red Blood Count 5.83 X10*6/uL (4.60-5.80); White Blood Count 6.2 X10*3/uL (4.8-10.8)
[2024-06-30 13:31] LABS: Prothrombin Time 11.2 SEC (10.9-12.4)
[2024-06-30 13:33] LABS: Alanine Aminotransferase 47 U/L (0-40); Albumin Level 4.4 g/dL (3.5-5.0); Alkaline Phosphatase 49 U/L (39-117); Anion Gap 10 (12-20); Aspartate Amino Transferase 35 U/L (5-37); Bilirubin Total 1.1 mg/dL (0.0-1.0); Blood Urea Nitrogen 15 mg/dL (9-16); Calcium 9.4 mg/dL (8.4-10.2); Carbon Dioxide 26 mmol/L (22-29); Chloride 106 mmol/L (96-108); Creatinine Clr Calc Pharmacy 62.4; Estimated Glomerular Filt Rate 57; Glucose Random 209 mg/dL (60-115); Potassium 4.2 mmol/L (3.3-5.1); Sodium 138 mmol/L (135-145); Total Protein 7.4 g/dL (6.5-8.0)
[2024-06-30 13:41] LABS: Troponin-I High Sensitivity 3.5 ng/L (<3.5-35.0)
[2024-06-30 14:06] LABS: Influenza A PCR NEGATIVE (Negative); Influenza B PCR NEGATIVE (Negative); Resp Syncy Virus RNA Qual PCR NEGATIVE (Negative); SARS COV2 PCR INHOUSE NEGATIVE (Negative)
[2024-06-30 14:52] VITALS: BP 117/81; PULSE 61; RESP 16; TEMP 36.5; O2SAT 100
[2024-06-30 16:25] LABS: Troponin-I High Sensitivity 3.8 ng/L (<3.5-35.0)
[2024-06-30] MEDS: Ketorolac Tromethamine 30 MG/ML VIAL IM (16:25)
[2024-06-30 16:41] VITALS: BP 101/74; PULSE 70; RESP 16; TEMP 36.9; O2SAT 98
== END 2024-06-30 16:42 | disposition home or self-care (01) ==
PROVIDERS: Physician Assistant Medical; Emergency Provider Student in an Organized Health Care Education/Training Program; PCP Internal Medicine
DX: R07.89 Other chest pain (principal); M94.0 Chondrocostal junction syndrome [Tietze]; M54.2 Cervicalgia; E11.9 Type 2 diabetes mellitus without complications; Z03.818 Encounter for observation for suspected exposure to other biological agents ruled out; Z79.899 Other long term (current) drug therapy; Z79.84 Long term (current) use of oral hypoglycemic drugs
CPT/HCPCS: 0241U; 36415; 71046; 80053; 83735; 84484; 85025; 85610; 93005; 96372; 99285; J1885

== ENCOUNTER → 2024-06-30 12:03 | Outpatient (BNV) | payer OTHER, SELFPAY | PROVIDERS: Emergency Provider Student in an Organized Health Care Education/Training Program; PCP Internal Medicine; Visit Provider Internal Medicine Cardiovascular Disease | DX: R07.9 Chest pain, unspecified (principal) | CPT/HCPCS: 93010 ==

== ENCOUNTER → 2024-06-30 12:13 | Outpatient (BNV) | payer OTHER, SELFPAY | PROVIDERS: Visit Provider Radiology Diagnostic Radiology | DX: R07.89 Other chest pain (principal) | CPT/HCPCS: 71046 ==

== ENCOUNTER 2024-07-29 10:06 | Outpatient (REF) | payer OTHER, SELFPAY ==
[2024-07-29 11:22] LABS: Creatinine Urine 170.89 mg/dL; Microalbum/Creatinine Ratio Ur 5.2 ug/mg cr (<30)
[2024-07-29 11:23] LABS: Alanine Aminotransferase 38 U/L (0-40); Albumin Level 4.1 g/dL (3.5-5.0); Alkaline Phosphatase 47 U/L (39-117); Anion Gap 8 (12-20); Aspartate Amino Transferase 26 U/L (5-37); Bilirubin Total 0.9 mg/dL (0.0-1.0); Blood Urea Nitrogen 12 mg/dL (9-16); Calcium 8.6 mg/dL (8.4-10.2); Carbon Dioxide 27 mmol/L (22-29); Chloride 107 mmol/L (96-108); Cholesterol 224 mg/dL (<200); Estimated Glomerular Filt Rate 57; Glucose Fasting 279 mg/dL (60-99); HDL Cholesterol 49 mg/dL (>40); LDL Cholesterol Calculated 148 mg/dL (<100); Potassium 4.7 mmol/L (3.3-5.1); Sodium 137 mmol/L (135-145); Total Protein 6.8 g/dL (6.5-8.0); Triglycerides 137 mg/dL (<150)
[2024-07-29 11:28] LABS: Vitamin D 25-OH Total 23.8 ng/mL (>30)
== END 2024-07-29 10:07 | disposition home or self-care (01) ==
LOC: HO.LAB 10:06
PROVIDERS: PCP Internal Medicine; Visit Provider Internal Medicine
DX: E11.9 Type 2 diabetes mellitus without complications (principal); E55.9 Vitamin D deficiency, unspecified; E78.5 Hyperlipidemia, unspecified
CPT/HCPCS: 36415; 80053; 80061; 82043; 82306; 82570

== ENCOUNTER 2024-08-01 15:08 | Outpatient (AMB) | payer OTHER, SELFPAY ==
[2024-08-01 15:21] VITALS: BP 110/78; PULSE 84; O2SAT 97; BMI 31.1
--- NOTE | 2024-08-01 15:21 | MHC.PC.OV ---
Vital Signs 08/01/24 15:21 Height 5 ft 4 in Weight 181 lb BMI 31.1 BP 110/78 Blood Pressure Location Lt brachial Position Sitting Pulse 84 Pulse Source Pulse Oximeter Pulse Oximetry (%) 97 Oxygen Delivery Method Room Air Intake Visit Reasons: 4 Month F/U Allergies No Known Allergies Allergy (Verified 08/01/24 15:42) Medication List - Last Reconciled 08/01/24 by Amparo Waite MD acetaminophen (Tylenol Extra Strength) 500 mg PO Q6H PRN aspirin (Adult Low Dose Aspirin) 81 mg PO DAILY 90 days atorvastatin 80 mg PO BEDTIME 90 days bempedoic acid 180 mg PO DAILY blood sugar diagnostic (FreeStyle Lite Strips) Use 1 test strip once a day blood-glucose meter As directed blood-glucose meter (FreeStyle Lite Meter kit) As directed cholecalciferol (vitamin D3) 25 mcg PO DAILY 90 days cyclobenzaprine 10 mg PO BEDTIME ezetimibe 10 mg PO DAILY 90 days lamotrigine 25 mg PO BID lancets As directed metformin ER 1,000 mg (2 x 500 mg) PO BID 90 days nabumetone 500 mg PO BID sertraline 100 mg PO DAILY sertraline 50 mg PO DAILY [sling As directed] Tobacco use date assessed: 03/22/24 Dental Screening Dental Screen Date: 03/22/24 HPI HPI Comments History of Present Illness Details The patient is a 53-year-old male presenting with concerns related to his Type 2 Diabetes Mellitus management. The Hemoglobin A1c was reported high at 8.8%, indicating poor glycemic control in the past two to three months. Current treatment includes Metformin 1200 mg a day, with additional consideration of starting Jardiance for better glycemic control and cardiovascular protection. Lifestyle factors were discussed, particularly dietary considerations and difficulties controlling nighttime hunger. Additionally, the patient is addressing Hyperlipidemia, with recent laboratory results revealing total cholesterol at 224 mg/dL and LDL at 148 mg/dL, both elevated. The patient is currently on Atorvastatin 80 mg, and Ezetimibe 10 mg. Past discussions have included the potential addition of Bempedoic acid, though there seems to have been challenges obtaining the medication. The patient also reports new-onset neck pain and upper limb paresthesia persisting for three weeks. He describes a sensation yonny to a plastic bag in the neck and numbness in both arms and hands after brief rest periods. These symptoms may be aggravated by positioning, noting improved rest in a recliner compared to a bed. There is significant concern regarding the relationship of these symptoms to his cervical spine condition. For Depression, the patient is taking Sertraline 150 mg with ongoing psychiatric and psychological follow-up. A previous PHQ-9 score of 26 indicated severe depressive symptoms. He expresses anxiety at night, possibly related to his poorly controlled diabetes, which may impact his mental health. [facility] Medical History (Updated 08/01/24 @ 15:58 by Amapro Waite MD) Hypovitaminosis D Mild recurrent major depression Right hand pain Depression with anxiety Polyarthralgia Dyslipidemia Diabetes mellitus Elevated hemoglobin Abdominal pain Surgical History History of hand surgery Family History Mother High blood pressure Diabetes Father No problems noted. 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 1. Little interest or pleasure in doing things: nearly every day 2. Feeling down, depressed, or hopeless: nearly every day 3. Trouble falling or staying asleep, or sleeping too much: nearly every day 4. Feeling tired or having little energy: nearly every day 5. Poor appetite or overeating: more than half the days 6. Feeling bad about yourself - or that you are a failure or have let yourself or your family down: nearly every day 7. Trouble concentrating on things, such as reading the newspaper or watching television: nearly every day 8. Moving or speaking so slowly that other people could have noticed. Or the opposite - being so fidgety or restless that you have been moving around a lot more than usual: nearly every day 9. Thoughts that you would be better off or of hurting yourself in some way: nearly every day Total score: 26 Depression Screening Interpretation: Positive (no suicidal thoughts) Depression Screening Follow-up: Existing condition, In treatment, Community Mental Health Worker F/U and Follow-up Visit Requested Depression Screening Done: Yes 37823 - PHQ-9 Billing: Yes Source: Developed by Drs. Adonis Li, Marisol Kumar, Riley Trotter and colleagues, with an educational zulema from [employer]. Thrive Questionnaire Date Thrive assessed: 08/01/24 I am a: Patient What is your living situation today?: I have a steady place to live Within the past 12 months, did the food you bought not last and you didn't have the money to get more?: Never true Within the past 12 months, did you worry whether your food would run out before you got money to buy more?: Never true Do you have trouble paying for medicines?: No Do you have trouble getting transportation to medical appointments?: No Do you have trouble paying your heating and electricity bill?: No Do you have trouble taking care of your child, family member or friend?: No Do you have trouble with day-to-day activities such as bathing, preparing meals, shopping, managing finances, etc.?: No Are you currently unemployed and looking for a job?: No Are you interested in more education?: No Please select the resources that you would like help with: None Currently or been in a relationship where the following occur: No concerns reported THRIVE Score: 0 AUDIT C Alcohol Use Questionnaire (AUDIT-C) 1. How often do you have a drink containing alcohol?: 2-4 times a month 2. How many drinks containing alcohol do you have on a typical day when you are drinking?: 3 or 4 3. How often do you have six or more drinks on one occasion?: Never Total Score: 3 MUKUND-7 AMB Questionnaire MUKUND-7 Date MUKUND - 7 assessed: 08/01/24 Feeling nervous, anxious, or on edge: 2 = More than half the days Not being able to stop or control worryin = More than half the days Worrying too much about different things: 3 = Nearly every day Trouble relaxin = Nearly every day Being so restless that it is hard to sit still: 3 = Nearly every day Becoming easily annoyed or irritable: 3 = Nearly every day Feeling afraid as if something awful might happen: 3 = Nearly every day Total MUKUND-7 score (0-4 normal; 5-9 mild; 10-14 moderate; 15-21 severe): 19 Source: Developed by Drs. Adonis Li, Marisol Kumar, Riley Trotter and colleagues, with an educational zulema from [employer]. MUKUND-7 Assessment Billing MUKUND-7 Assessment Tool: MUKUND-7 Assessment 05923 Review of Systems Const Details: - Neurologic: Reports neck discomfort and paresthesia in upper limbs. - Musculoskeletal: Reports symptoms affecting arms and shoulder, described as feeling stuck or asleep. - Psychological: Reports severe depressive symptoms, anxiety, and stress-related eating. Physical exam (Primary Care) Vital Signs: Last Vital Signs Pulse 84 08/01/24 15:21 BP 110/78 08/01/24 15:21 Pulse Ox 97 08/01/24 15:21 Oxygen Delivery Method Room Air 08/01/24 15:21 BMI result Body Mass Index 31.1 BMI Assessment/Plan discussion: High BMI High, discussed plan: lifestyle, weight reduction, dietary and physical activity Tobacco/Smoking Status: Tobacco use Status Tobacco use date assessed 03/22/24 08/01/24 15:22 Patient Tobacco Use Status Never used Tobacco 08/01/24 15:48 e-Cigarette/Vaping Use Never Used 08/01/24 15:48 PHQ-9: PHQ-9 Score PHQ-9: Total score 26 08/01/24 15:57 Depression Screening Interpretation: Positive (no suicidal thoughts) Depression Screening Follow-up: Existing condition, In treatment, Community Mental Health Worker F/U and Follow-up Visit Requested Thrive Assessment: Date of Thrive Assessment Date Thrive assessed 08/01/24 08/01/24 15:28 Currently or been in a relationship where the following occur: No concerns reported Const Other: General: No confusion Neck: Normal visual inspection and Yes supple Respiratory: Normal respiratory effort, clear to auscultation bilaterally Cardiovascular: No jugular venous distension, regular rate, regular rhythm, S1 normal heart sound present and S2 normal heart sound present Neurology: Patient oriented x3, no focal motor deficits and No confusion Extremities: Full ROM, but patient reports numbness in arms and hands when lying down Psychology: PHQ-9 score of 26, indicating severe depression; patient is seeing a psychiatrist and psychologist Office Procedures Flu Questionnaire Does the patient have a severe egg allergy?: No Results AMB Hemoglobin A1c AMB Hemoglobin A1c 8.8 % Last Edit by CHRISTEN Powell on 08/01/24 15:57 Immunizations Fluarix Triv [id number] (PF) 45 mcg (15 mcg x 3)/0.5 mL IM syringe Performing Provider: Amparo Waite MD [facility] Documented (not given) by: CHRISTEN Powell on 08/01/24 15:33 Reason Not Given: Patient Refused Results Reviewed Results Reviewed: Laboratory Last Values Hgb A1c (Clinic) 8.8 % (4.0-6.0) H 08/01/24 15:22 Coding Level of Care Code Est Pt Level 4 (61942) Complex EM visit Add On G2211 Diagnoses Cervical radiculopathy M54.12 Hyperlipidemia LDL goal <70 E78.5 Mild recurrent major depression F33.0 Type 2 diabetes mellitus without complication, without long-term current use of insulin E11.9 Diabetes mellitus type: type 2 Diabetes mellitus termite control representative insulin use: without assisted use Diabetes mellitus complication status: without complication Additional Codes MUKUND-7 Assessment Billing - MUKUND-7 Assessment Tool: MUKUND-7 Assessment 17841 ([id number]) PHQ-9 - 32766 - PHQ-9 Billing: Yes ([id number]) Time Spent (min) 23 Assessment & Plan Assessment & Plan (1) Cervical radiculopathy: Code(s): M54.12 - Radiculopathy, cervical region Category: Medical (2) Hyperlipidemia LDL goal <70: Code(s): E78.5 - Hyperlipidemia, unspecified Category: Medical (3) Mild recurrent major depression: Code(s): F33.0 - Major depressive disorder, recurrent, mild Category: Medical (4) Diabetes mellitus: Code(s): E11.9 - Type 2 diabetes mellitus without complications Category: Medical Qualifiers: Diabetes mellitus type: type 2 Diabetes mellitus termite control representative insulin use: without termite control representative use Diabetes mellitus complication status: without complication Qualified Code(s): E11.9 - Type 2 diabetes mellitus without complications Plan - Monitor and adjust diabetes medication regimen. Consideration for adding Jardiance for glucose control and cardioprotection. - Continue Atorvastatin and Ezetimibe for hyperlipidemia management; revisit potential addition of Bempedoic acid. - Recommend orthopedic consultation in [place] for neck pain and paresthesia; consider cervical spine evaluation. - Increase Vitamin D supplementation as per dietary recommendations. - Support ongoing psychiatric and psychological care for depression management, monitor response to current therapy. - Encourage lifestyle modifications including diet adjustments to lower LDL cholesterol and improve glycemic control. Patient was informed and verbally consented to the use of an ambient scribe for clinic note documentation during this visit. During the visit, I discussed the need for closer monitoring and adjustment of the patient's diabetic regimen, emphasizing the potential benefit of adding Jardiance for enhanced glucose control. We reviewed the elevated cholesterol levels and discussed continuing the current lipid-lowering treatment while considering alternative options like Bempedoic acid pending availability. We also addressed neck and limb discomfort, with a plan for orthopedic evaluation to explore cervical spine involvement. Vitamin D supplementation was advised to address deficiency, and I underscored continuing psychiatric and psychological support for depression management. The importance of dietary modifications was thoroughly explained, emphasizing healthier food choices to manage cholesterol levels and improve overall health. Orders: Orders Influenza [id number] Immunization Today Z23 - Encounter for immunization Vitamin D 25-OH Total 4 Months E55.9 - Vitamin D deficiency, unspecified Lipid Panel 4 Months E78.5 - Hyperlipidemia, unspecified AMB Hemoglobin A1c Today E11.9 - Type 2 diabetes mellitus without complications Microalbumin, Random (w Creat) 4 Months R80.9 - Proteinuria, unspecified Comprehensive [place]. Panel Fast 4 Months M54.12 - Radiculopathy, cervical region Referrals Orthopedics Referral M54.12 - Radiculopathy, cervical region Medications: New empagliflozin (Jardiance) 10 mg PO DAILY 90 tabs 0RF 90 days E11.9 - Type 2 diabetes mellitus without complications Refilled cholecalciferol (vitamin D3) 25 mcg PO DAILY 90 caps 3RF 90 days ezetimibe 10 mg PO DAILY 90 tabs 1RF 90 days E78.5 - Hyperlipidemia, unspecified atorvastatin 80 mg PO BEDTIME 90 tabs 1RF 90 days aspirin (Adult Low Dose Aspirin) 81 mg PO DAILY 90 tabs 2RF 90 days Patient Instructions: - Continue current medications as prescribed, increase physical activity. - Monitor blood glucose levels regularly, follow a strict diet plan to manage diabetes and cholesterol. - Schedule an orthopedic consultation for neck and limb evaluation. - Take Vitamin D supplements as advised; ensure adequate sun exposure. - Attend follow-ups with psychiatric and psychological services. - Limit spicy foods and fried foods for better health outcomes. - Seek immediate medical attention for any worsening of symptoms or new concerns.
== END 2024-08-01 16:06 | disposition home or self-care (01) ==
PROVIDERS: PCP Internal Medicine; Visit Provider Internal Medicine
DX: M54.12 Radiculopathy, cervical region (principal); E78.5 Hyperlipidemia, unspecified; F33.0 Major depressive disorder, recurrent, mild; E11.9 Type 2 diabetes mellitus without complications; Z23 Encounter for immunization

== ENCOUNTER → 2024-08-01 15:08 | Outpatient (BNVA) | payer OTHER, SELFPAY | PROVIDERS: PCP Internal Medicine; Visit Provider Internal Medicine | DX: E11.9 Type 2 diabetes mellitus without complications (principal); R80.9 Proteinuria, unspecified; E78.5 Hyperlipidemia, unspecified; R20.2 Paresthesia of skin; M54.12 Radiculopathy, cervical region; F33.0 Major depressive disorder, recurrent, mild; E55.9 Vitamin D deficiency, unspecified; Z28.21 Immunization not carried out because of patient refusal; Z79.899 Other long term (current) drug therapy | CPT/HCPCS: 83036; 90471; 96127; 99212 ==

== ENCOUNTER 2024-11-24 11:14 | Outpatient (REF) | payer OTHER, SELFPAY ==
[2024-11-24 12:42] LABS: Alanine Aminotransferase 35 U/L (0-40); Albumin Level 4.4 g/dL (3.5-5.0); Alkaline Phosphatase 54 U/L (39-117); Anion Gap 11 (12-20); Aspartate Amino Transferase 30 U/L (5-37); Bilirubin Total 0.7 mg/dL (0.0-1.0); Blood Urea Nitrogen 13 mg/dL (9-16); Calcium 9.3 mg/dL (8.4-10.2); Carbon Dioxide 28 mmol/L (22-29); Chloride 103 mmol/L (96-108); Cholesterol 206 mg/dL (<200); Estimated Glomerular Filt Rate > 60; Glucose Fasting 252 mg/dL (60-99); HDL Cholesterol 58 mg/dL (>40); LDL Cholesterol Calculated 135 mg/dL (<100); Potassium 4.1 mmol/L (3.3-5.1); Sodium 138 mmol/L (135-145); Total Protein 7.1 g/dL (6.5-8.0); Triglycerides 68 mg/dL (<150)
[2024-11-24 12:57] LABS: Vitamin D 25-OH Total 20.2 ng/mL (>30)
[2024-11-24 12:58] LABS: Creatinine Urine 97.17 mg/dL; Microalbum/Creatinine Ratio Ur 8.2 ug/mg cr (<30)
== END 2024-11-24 11:15 | disposition home or self-care (01) ==
LOC: HO.LAB 11:14
PROVIDERS: PCP Internal Medicine; Visit Provider Internal Medicine
DX: M54.12 Radiculopathy, cervical region (principal); R80.9 Proteinuria, unspecified; E78.5 Hyperlipidemia, unspecified; E55.9 Vitamin D deficiency, unspecified
CPT/HCPCS: 36415; 80053; 80061; 82043; 82306; 82570

== ENCOUNTER 2024-11-29 15:17 | Outpatient (AMB) | payer OTHER, SELFPAY ==
--- NOTE | 2024-11-29 15:22 | MHC.PC.OV ---
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 Quality Required: No Accompanied by: Self / Same As Patient Allergies No Known Allergies Allergy (Verified 11/29/24 15:41) Medication List - Last Reconciled 11/29/24 by Amparo Waite MD acetaminophen (Tylenol Extra Strength) 500 mg PO Q6H PRN aspirin (Adult Low Dose Aspirin) 81 mg PO DAILY 90 days atorvastatin 80 mg PO BEDTIME 90 days bempedoic acid 180 mg PO DAILY blood sugar diagnostic (FreeStyle Lite Strips) Use 1 test strip once a day blood-glucose meter As directed blood-glucose meter (FreeStyle Lite Meter kit) As directed cholecalciferol (vitamin D3) 25 mcg PO DAILY 90 days cyclobenzaprine 10 mg PO BEDTIME empagliflozin (Jardiance) 10 mg PO DAILY 90 days ezetimibe 10 mg PO DAILY 90 days lamotrigine 25 mg PO BID lancets As directed metformin ER 1,000 mg (2 x 500 mg) PO BID 90 days nabumetone 500 mg PO BID sertraline 100 mg PO DAILY sertraline 50 mg PO DAILY [sling As directed] Tobacco use date assessed: 11/29/24 Dental Screening Dental Screen Date: 11/29/24 Did you have a dental visit in the last 12 months?: No Did you have a dental problem in the last 6 months where you did not have access to dental care?: No Was dental information given to patient?: Patient has dentist HPI HPI Comments History of Present Illness Details The patient is a 54-year-old male presenting for an annual physical examination, with a focus on managing chronic conditions like Type 2 Diabetes Mellitus, hyperlipidemia, and severe major depressive disorder. His most recent A1c level stands at 8.7, reflecting suboptimal diabetes control. His LDL cholesterol is elevated at 135 mg/dL, despite ongoing atorvastatin treatment. He admits difficulties in completely avoiding dietary fats, which may be impacting his lipid levels. The patient has severe depression as indicated by a PHQ-9 score of 22, and he continues to attend psychiatric appointments for ongoing management. His surgical history includes right shoulder rotator cuff repair. Persistent cervical pain with symptoms resembling internal discomfort leads to planned procedures in the coming months. He experiences recurrent nighttime hand numbness, aligning with potential carpal tunnel syndrome. There is a noted family history of diabetes with his mother, and while he does not smoke, he does indulge in wine occasionally, which he describes as special to him. - Pneumococcal vaccination discussed, advised before age 65 due to diabetes. - Recent colonoscopy pending; reminder of need for bowel preparation. - Increase Jardiance dose from 10 mg to 25 mg for improved glucose control. - LDL cholesterol discussed; reviewed diet modifications and importance of maintaining LDL below 70 mg/dL. [facility] Medical History (Updated 11/29/24 @ 16:21 by Amparo Waite MD) Hypovitaminosis D Mild recurrent major depression Right hand pain Depression with anxiety Polyarthralgia Dyslipidemia Diabetes mellitus Elevated hemoglobin Abdominal pain Surgical History (Updated 11/29/24 @ 15:47 by Amparo Waite MD) H/O repair of right rotator cuff History of hand surgery Family History Mother High blood pressure Diabetes Father No problems noted. 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 1. Little interest or pleasure in doing things: nearly every day 2. Feeling down, depressed, or hopeless: more than half the days 3. Trouble falling or staying asleep, or sleeping too much: nearly every day 4. Feeling tired or having little energy: nearly every day 5. Poor appetite or overeating: more than half the days 6. Feeling bad about yourself - or that you are a failure or have let yourself or your family down: nearly every day 7. Trouble concentrating on things, such as reading the newspaper or watching television: nearly every day 8. Moving or speaking so slowly that other people could have noticed. Or the opposite - being so fidgety or restless that you have been moving around a lot more than usual: more than half the days 9. Thoughts that you would be better off or of hurting yourself in some way: several days Total score: 22 Depression Screening Interpretation: Positive Depression Screening Follow-up: Existing condition, In treatment, Community Mental Health Worker F/U and Follow-up Visit Requested Depression Screening Done: Yes 41887 - PHQ-9 Billing: Yes Source: Developed by Drs. Adonis Li, Marisol Kumar, Riley Trotter and colleagues, with an educational zulema from [employer]. Thrive Questionnaire Date Thrive assessed: 08/01/24 I am a: Patient What is your living situation today?: I choose not to answer this question Within the past 12 months, did the food you bought not last and you didn't have the money to get more?: Sometimes True Within the past 12 months, did you worry whether your food would run out before you got money to buy more?: Sometimes True Do you have trouble paying for medicines?: Yes Do you have trouble getting transportation to medical appointments?: No Do you have trouble paying your heating and electricity bill?: Yes Do you have trouble taking care of your child, family member or friend?: Yes Do you have trouble with day-to-day activities such as bathing, preparing meals, shopping, managing finances, etc.?: Yes Are you currently unemployed and looking for a job?: Yes Are you interested in more education?: Yes Please select the resources that you would like help with: Utilities Currently or been in a relationship where the following occur: No concerns reported THRIVE Score: 3 AUDIT C Alcohol Use Questionnaire (AUDIT-C) 1. How often do you have a drink containing alcohol?: Never Total Score: 0 Score Reviewed/Action Taken: No MUKUND-7 AMB Questionnaire MUKUND-7 Date MUKUND - 7 assessed: 08/01/24 Feeling nervous, anxious, or on edge: 2 = More than half the days Not being able to stop or control worryin = More than half the days Worrying too much about different things: 3 = Nearly every day Trouble relaxin = Nearly every day Being so restless that it is hard to sit still: 2 = More than half the days Becoming easily annoyed or irritable: 2 = More than half the days Feeling afraid as if something awful might happen: 2 = More than half the days Total MUKUND-7 score (0-4 normal; 5-9 mild; 10-14 moderate; 15-21 severe): 16 Source: Developed by Drs. Adonis Li, Marisol Kumar, Riley Trotter and colleagues, with an educational zulema from [employer]. MUKUND-7 Assessment Billing MUKUND-7 Assessment Tool: MUKUND-7 Assessment 42719 Review of Systems Const All systems reviewed & are unremarkable except as noted in HPI and below Card Denies chest pain at rest, Denies chest pain with activity, Denies edema, Denies irregular heart rhythm, Denies claudication, Denies dyspnea, Denies dyspnea on exertion, Denies orthopnea, Denies paroxysmal nocturnal dyspnea and Denies slow heart rate Resp Denies cough, Denies dyspnea and Denies dyspnea on exertion Denies urinary hesitancy, Denies urinary incontinence and Denies urinary urgency Musc Denies atrophy, Denies deformity and Denies limited range of motion Skin/Breast Denies bleeding lesions, Denies changing lesions and Denies rash Physical exam (Primary Care) Vital Signs: Last Vital Signs BP 118/72 11/29/24 15:25 BMI result Body Mass Index 30.4 BMI Assessment/Plan discussion: High BMI High, discussed plan: lifestyle, weight reduction, dietary and physical activity Tobacco/Smoking Status: Tobacco use Status Tobacco use date assessed 11/29/24 11/29/24 15:30 Patient Tobacco Use Status Never used Tobacco 11/29/24 15:23 e-Cigarette/Vaping Use Never Used 11/29/24 15:23 PHQ-9: PHQ-9 Score PHQ-9: Total score 22 11/29/24 15:58 Depression Screening Interpretation: Positive Depression Screening Follow-up: Existing condition, In treatment, Community Mental Health Worker F/U and Follow-up Visit Requested Thrive Assessment: Date of Thrive Assessment Date Thrive assessed 08/01/24 11/29/24 15:23 Currently or been in a relationship where the following occur: No concerns reported HENMT Head: Yes normal to inspection, Yes normocephalic and Yes atraumatic Ears: external ears normal Eyes General: appearance normal, both eyes and all related structures Eyelids: Yes eyelids normal Conjunctivae: conjunctivae normal Neck Neck: Yes normal visual inspection and Yes supple Resp Effort & Inspection: normal respiratory effort Auscultation: clear to auscultation bilaterally Cardio Jugular venous distension: no JVD Rate: regular rate Rhythm: regular rhythm Heart sounds: S1 normal heart sound present and S2 normal heart sound present GI Inspection: Yes normal to inspection Palpation (GI): Soft to palpation and nontender Auscultation: normal bowel sounds Skin General skin exam: no rashes or lesions noted Neuro General: no focal motor deficits Extrem General: Yes full ROM Psych Appearance: grossly normal Results AMB Hemoglobin A1c AMB Hemoglobin A1c 8.7 % Last Edit by HENRY Phillips on 11/29/24 15:33 Immunizations pneumoc 20-kandice conj-dip cr(PF) 0.5 mL IM syringe Performing Provider: Amparo Waite MD Performing Location: [facility] Administered by: HENRY Phillips on 11/29/24 15:58 Dose Route Admin Location Dispensed Lot Number Expiration Date NDC [employer] Project Manager 0.5 mL IM Left Deltoid 0.5 mL [id number] 09/24/25 7520-7106-34 [employer] VIS Given Date VIS Provided VIS Publication Date 11/29/24 Single Vaccine 22 Eligibility Eligibility Date Funding Source Not [facility] Eligible 11/29/24 Private Results Reviewed Results Reviewed: Laboratory Last Values Hgb A1c (Clinic) 8.7 % (4.0-6.0) H 11/29/24 15:21 Coding Level of Care Code Est Pt Prev Care 40-64y(17509) Diagnoses Physical exam Z00.00 Severe major depression without psychotic features F32.2 Type 2 diabetes mellitus without complication, without long-term current use of insulin E11.9 Diabetes mellitus type: type 2 Diabetes mellitus fci insulin use: 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 Diabetes mellitus complication status: without complication Additional Codes MUKUND-7 Assessment Billing - MUKUND-7 Assessment Tool: MUKUND-7 Assessment 45023 ([id number]) PHQ-9 - 82056 - PHQ-9 Billing: Yes ([id number]) Time Spent (min) 30 Assessment & Plan Assessment & Plan (1) Physical exam: Code(s): Z00.00 - Encounter for general adult medical examination without abnormal findings Category: Medical (2) Severe major depression without psychotic features: Code(s): F32.2 - Major depressive disorder, single episode, severe without psychotic features Category: Medical (3) Diabetes mellitus: Code(s): E11.9 - Type 2 diabetes mellitus without complications Category: Medical Qualifiers: Diabetes mellitus type: type 2 Diabetes mellitus fci insulin use: without fci use Diabetes mellitus complication status: without complication Qualified Code(s): E11.9 - Type 2 diabetes mellitus without complications Plan The patient's management plan includes increasing Jardiance dosage to better control Type 2 Diabetes Mellitus. Continuing atorvastatin therapy to target LDL cholesterol management is crucial; dietary counseling remains an emphasis. Sertraline at 150 mg manages his depression with ongoing psychiatric review. He is scheduled for pneumococcal vaccination and pending neck and hand evaluations. Reminder to complete colonoscopy prep aligns with health maintenance efforts. Patient was informed and verbally consented to the use of an ambient scribe for clinic note documentation during this visit. I reiterated the importance of tight glucose control and lipid management, given his elevated A1c and LDL levels. The updated Jardiance dosage was explained with potential benefits in reducing cardiovascular risk. Discussed lifestyle recommendations for hyperlipidemia and potential medication side effects. I emphasized the significance of psychiatric support and the pneumococcal vaccine's protective benefits due to his diabetic condition. We planned follow-up evaluations for cervical pain and hand symptoms. The need for colonoscopy, including the preparatory requirements, was highlighted. Orders: Orders AMB Hemoglobin A1c Today E11.9 - Type 2 diabetes mellitus without complications Microalbumin, Random (w Creat) 4 Months R80.9 - Proteinuria, unspecified Pneumococcal 20 Immunization Today Z23 - Encounter for immunization Lipid Panel 4 Months E78.5 - Hyperlipidemia, unspecified Comprehensive [place]. Panel Fast 4 Months E11.9 - Type 2 diabetes mellitus without complications Referrals Open Access Screening Colonoscopy Referral Z12.12 - Encounter for screening for malignant neoplasm of rectum Medications: New empagliflozin (Jardiance) 25 mg PO DAILY 90 tabs 1RF 90 days E11.9 - Type 2 diabetes mellitus without complications Discontinued empagliflozin (Jardiance) Discontinued Reason: Patient Completed Course 10 mg PO DAILY 90 days 90 tabs 0RF E11.9 - Type 2 diabetes mellitus without complications Patient Instructions: - Increase Jardiance from 10 mg to 25 mg as directed. - Continue current medications: atorvastatin, sertraline, metformin. - Maintain a low-fat diet, aiming to lower LDL cholesterol. - Attend upcoming psychiatric and orthopedic appointments. - Complete colonoscopy prep as per instructions once scheduled. - Return for pneumococcal vaccine administration and follow-up. - Avoid smoking; moderate wine consumption is acceptable.
[2024-11-29 15:25] VITALS: BP 118/72; BMI 30.4
--- OUTSIDE RECORDS SUMMARY | 2024-11-29 16:28 | XMS_ITS | Clinical Summary ---
Author Organization [facility] Facility Address [address] [place] [address] Care Team Providers Care Manager Fitness Name Role Phone Unavailable Primary Care Provider Unavailabl e Social History Tobacco Use Types Packs/Day Years Used Date Smoking Tobacco: Never Assessed Sex and Gender Information Value Date Recorded Sex Assigned at Not on file Legal Sex Male 5:14 AM EST Gender Identity Not on file Sexual Orientation Not on file Plan of Treatment Health Maintenance Due Date Last Done Comments Hepatitis B Vaccines (1 of 3 - 19+ 3-dose series) 09/28/1991 Cholesterol Screening (Lipid Panel) 06/29/2022 Colorectal Cancer Screening: Colonoscopy 06/29/2022 Depression Screening 06/29/2022 HIV Screening 06/29/2022 Hepatitis C Screening 06/29/2022 Social Influencers of Health Screening 06/29/2022 Pneumococcal Vaccine: 50+ Years (2 of 2 - PCV) 2022 2019 Zoster Vaccines (1 of 2) 2022 COVID-19 Vaccine (1 - 2023-2 5 season) 2024 Influenza Vaccine (Season Ended) 2025 08/10/2015 DTaP,Tdap,and Td Vaccines (3 - Td or Tdap) 06/30/2033 06/30/2023, 08/19/2019 Pneumococcal Vaccine: Pediatrics (0 to 5 Years) and At-Risk Patients (6 to 64 Years) Aged Out 2019 No longer eligible b ased on patient's age to complete this topic HIB Vaccines Aged Out No longer eligi ble based on patient's age to complete this topic HPV Vaccines Aged Out No longer eligi ble based on patient's age to complete this topic Hepatitis A Vaccines Aged Out No long er eligible based on patient's age to complete this topic IPV Vaccines Aged Out No longer eligi ble based on patient's age to complete this topic MMR Vaccines Aged Out No longer eligi ble based on patient's age to complete this topic Meningococcal ACWY Vaccine Aged Out N o longer eligible based on patient's age to complete this topic Meningococcal B Vaccine Aged Out No l onger eligible based on patient's age to complete this topic RSV Immunization Patients Under 20 months Aged Out No longer eligible b ased on patient's age to complete this topic Varicella Vaccines Aged Out No longer eligible based on patient's age to complete this topic
== END 2024-11-29 15:59 | disposition home or self-care (01) ==
LOC: HO.HMCH 15:18
PROVIDERS: PCP Internal Medicine; Visit Provider Internal Medicine
DX: Z00.00 Encounter for general adult medical examination without abnormal findings (principal); F32.2 Major depressive disorder, single episode, severe without psychotic features; E11.9 Type 2 diabetes mellitus without complications; Z23 Encounter for immunization

== ENCOUNTER → 2024-11-29 15:17 | Outpatient (BNVA) | payer OTHER, SELFPAY | PROVIDERS: PCP Internal Medicine; Visit Provider Internal Medicine | DX: Z00.00 Encounter for general adult medical examination without abnormal findings (principal); Z23 Encounter for immunization; E11.9 Type 2 diabetes mellitus without complications; E78.5 Hyperlipidemia, unspecified; F32.2 Major depressive disorder, single episode, severe without psychotic features; Z79.84 Long term (current) use of oral hypoglycemic drugs; Z79.899 Other long term (current) drug therapy | CPT/HCPCS: 83036; 90471; 90677; 96127; 99396 ==

== ENCOUNTER 2025-03-28 08:42 | Outpatient (REF) | payer OTHER, SELFPAY ==
--- OUTSIDE RECORDS SUMMARY | 2025-03-28 09:29 | XMS_ITS | Clinical Summary ---
Author Organization [facility] it Address [address] [place] [address] Care Team Providers Care Grain Mixer Name Role Phone Unavailable Primary Care Provider [...] Panel) 06/29/2022 Colorectal Cancer Screening: Colonoscopy 06/29/2022 HIV Screening 06/29/2022 Hepatitis C Screening 06/29/2022 Social Influencers of Health Screening 06/29/2022 Pneumococcal Vaccine: 50+ Years (2 of 2 - PCV) 2022 2019 Zoster Vaccines (1 of 2) 2022 Depression Screening 07/27/2024 COVID-19 Vaccine (1 - 2023-2 5 season) 2025 Influenza Vaccine (#1) 2025 08/10/2015 DTaP,Tdap,and Td Vaccines (3 - Td or Tdap) 06/30/2033 06/30/2023, 08/19/2019 HIB Vaccines Aged Out No longer eligi [...]
[2025-03-28 09:44] LABS: Alanine Aminotransferase 44 U/L (0-40); Albumin Level 4.5 g/dL (3.5-5.0); Alkaline Phosphatase 51 U/L (39-117); Anion Gap 9 (12-20); Aspartate Amino Transferase 32 U/L (5-37); Blood Urea Nitrogen 14 mg/dL (9-16); Calcium 9.0 mg/dL (8.4-10.2); Carbon Dioxide 29 mmol/L (22-29); Chloride 106 mmol/L (96-108); Cholesterol 203 mg/dL (<200); Estimated Glomerular Filt Rate > 60; HDL Cholesterol 50 mg/dL (>40); Potassium 4.2 mmol/L (3.3-5.1); Sodium 140 mmol/L (135-145); Total Protein 7.1 g/dL (6.5-8.0); Triglycerides 153 mg/dL (<150)
[2025-03-28 10:37] LABS: Microalbum/Creatinine Ratio Ur 5.5 ug/mg cr (<30)
== END 2025-03-28 08:43 | disposition home or self-care (01) ==
LOC: HO.LAB 08:42
PROVIDERS: PCP Internal Medicine; Visit Provider Internal Medicine
DX: E11.9 Type 2 diabetes mellitus without complications (principal); R80.9 Proteinuria, unspecified; E78.5 Hyperlipidemia, unspecified
CPT/HCPCS: 36415; 80053; 80061; 82043; 82570

== ENCOUNTER 2025-04-03 15:13 | Outpatient (AMB) | payer OTHER, SELFPAY ==
--- NOTE | 2025-04-03 15:19 | A.OFFPC_ITS ---
Vital Signs 04/03/25 15:20 Height 5 ft 4 in Weight 169 lb BMI 29.0 BP 132/66 Blood Pressure Location Lt brachial Position Sitting Pulse 93 Pulse Source Pulse Oximeter Temp 97.5 F Temp Source Temporal Artery Scan Pulse Oximetry (%) 97 Oxygen Delivery Method Room Air Intake Visit Reasons: dm Intake Note: Patient is here to follow up on DM. Kitchen Helper Required: Yes Kitchen Helper Language: Albanian Project Structural Engineer: Present Accompanied by: Sister Allergies No Known Allergies Allergy (Verified 04/03/25 15:38) Medication List - Last Reconciled 04/03/25 by Amparo Waite MD acetaminophen (Tylenol Extra Strength) 500 mg PO Q6H PRN aspirin (Adult Low Dose Aspirin) 81 mg PO DAILY 90 days atorvastatin 80 mg PO BEDTIME 90 days bempedoic acid 180 mg PO DAILY blood sugar diagnostic (FreeStyle Lite Strips) Use 1 test strip once a day blood-glucose meter As directed blood-glucose meter (FreeStyle Lite Meter kit) As directed cholecalciferol (vitamin D3) 25 mcg PO DAILY 90 days cyclobenzaprine 10 mg PO BEDTIME empagliflozin (Jardiance) 25 mg PO DAILY 90 days ezetimibe 10 mg PO DAILY 90 days lamotrigine 25 mg PO BID lancets As directed metformin ER 1,000 mg (2 x 500 mg) PO BID 90 days nabumetone 500 mg PO BID sertraline 100 mg PO DAILY sertraline 50 mg PO DAILY [sling As directed] Tobacco use date assessed: 04/03/25 Dental Screening Dental Screen Date: 11/29/24 HPI HPI Comments History of Present Illness Details The patient is a 54-year-old male presenting with management of Type 2 Diabetes Mellitus. His Hemoglobin A1c has improved from 8.7% to 7.5%, likely due to the medication Jardiance. The patient is currently on Metformin 1000 mg twice daily, although adherence is inconsistent. The patient also presents with Hyperlipidemia. Cholesterol levels have slightly decreased from 206 mg/dL to 203 mg/dL, with LDL cholesterol reducing from 135 mg/dL to 123 mg/dL. The target LDL level is 70 mg/dL, and further evaluation for familial hyperlipidemia is planned. The patient reports symptoms suggestive of Sleep Apnea, including severe daytime somnolence and falling asleep during activities. A sleep study is planned to confirm the diagnosis. [facility] Medical History (Updated 04/03/25 @ 15:51 by Amparo Waite MD) Hypovitaminosis D Mild recurrent major depression Right hand pain Depression with anxiety Polyarthralgia Dyslipidemia Diabetes mellitus Elevated hemoglobin Abdominal pain Surgical History H/O repair of right rotator cuff History of hand surgery Family History Mother High blood pressure Diabetes Father No problems noted. 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 Cognitive needs: No Hearing needs: No Vision needs: No Questionnaire Thrive Questionnaire Date Thrive assessed: 11/29/24 I am a: Patient What is your living situation today?: I choose not to answer this question Within the past 12 months, did the food you bought not last and you didn't have the money to get more?: Sometimes True Within the past 12 months, did you worry whether your food would run out before you got money to buy more?: Sometimes True Do you have trouble paying for medicines?: Yes Do you have trouble getting transportation to medical appointments?: No Do you have trouble paying your heating and electricity bill?: Yes Do you have trouble taking care of your child, family member or friend?: Yes Do you have trouble with day-to-day activities such as bathing, preparing meals, shopping, managing finances, etc.?: Yes Are you currently unemployed and looking for a job?: Yes Are you interested in more education?: Yes Please select the resources that you would like help with: Utilities Currently or been in a relationship where the following occur: No concerns reported THRIVE Score: 3 MUKUND-7 AMB Questionnaire MUKUND-7 Date MUKUND - 7 assessed: 08/01/24 Source: Developed by Drs. Adonis Li, Marisol Kumar, Riley Trotter and colleagues, with an educational zulema from [employer]. Review of Systems Const All systems reviewed & are unremarkable except as noted in HPI and below Card Denies chest pain at rest, Denies chest pain with activity, Denies edema, Denies irregular heart rhythm, Denies claudication, Denies dyspnea, Denies dyspnea on exertion, Denies orthopnea, Denies paroxysmal nocturnal dyspnea and Denies slow heart rate Resp Denies cough, Denies dyspnea and Denies dyspnea on exertion GI Denies abdominal pain, Denies change in bowel habits, Denies excessive flatus, Denies nausea and Denies vomiting Physical exam (Primary Care) Vital Signs: Last Vital Signs Temp 97.5 F 04/03/25 15:20 Pulse 93 04/03/25 15:20 BP 132/66 04/03/25 15:20 Pulse Ox 97 04/03/25 15:20 Oxygen Delivery Method Room Air 04/03/25 15:20 BMI result Body Mass Index 29.0 Tobacco/Smoking Status: Tobacco use Status Tobacco use date assessed 04/03/25 04/03/25 15:25 Patient Tobacco Use Status Never used Tobacco 04/03/25 15:25 e-Cigarette/Vaping Use Never Used 04/03/25 15:25 Thrive Assessment: Date of Thrive Assessment Date Thrive assessed 11/29/24 04/03/25 15:25 Currently or been in a relationship where the following occur: No concerns reported Resp Effort & Inspection: normal respiratory effort Auscultation: clear to auscultation bilaterally Cardio Jugular venous distension: no JVD Rate: regular rate Rhythm: regular rhythm Heart sounds: S1 normal heart sound present and S2 normal heart sound present Extrem General: Yes full ROM Results AMB Hemoglobin A1c AMB Hemoglobin A1c 7.5 % Last Edit by HENRY Newby on 04/03/25 15:36 Results Reviewed Results Reviewed: Laboratory Last Values Hgb A1c (Clinic) 7.5 % (4.0-6.0) H 04/03/25 15:18 Coding Level of Care Code Est Pt Level 4 (26327) Complex EM visit Add On G2211 Diagnoses Type 2 diabetes mellitus without complication, without long-term current use of insulin E11.9 Diabetes mellitus type: type 2 Diabetes mellitus roasterman insulin use: without longterm use Diabetes mellitus complication status: without complication Hyperlipidemia LDL goal <70 E78.5 Severe major depression without psychotic features F32.2 Carpal tunnel syndrome, bilateral G56.03 Daytime somnolence R40.0 Time Spent (min) 22 Assessment & Plan Assessment & Plan (1) Diabetes mellitus: Code(s): E11.9 - Type 2 diabetes mellitus without complications Category: Medical Qualifiers: Diabetes mellitus type: type 2 Diabetes mellitus roasterman insulin use: without roasterman use Diabetes mellitus complication status: without complica tion Qualified Code(s): E11.9 - Type 2 diabetes mellitus without complications (2) Hyperlipidemia LDL goal <70: Code(s): E78.5 - Hyperlipidemia, unspecified Category: Medical (3) Severe major depression without psychotic features: Code(s): F32.2 - Major depressive disorder, single episode, severe without psychotic features Category: Medical (4) Carpal tunnel syndrome, bilateral: Code(s): G56.03 - Carpal tunnel syndrome, bilateral upper limbs Category: Medical (5) Daytime somnolence: Code(s): R40.0 - Somnolence Category: Medical Plan Plan Patient was informed and verbally consented to the use of an ambient scribe for clinic note documentation during this visit. 1. Type 2 diabetes mellitus without complications E11.9 HCC 19 The patient's Hemoglobin A1c has improved from 8.7% to 7.5%, likely due to Jardiance. The patient is prescribed Metformin 1000 mg twice daily, but adherence is inconsistent. Continued monitoring of blood glucose levels and medication adherence is recommended. 2. Hyperlipidemia, unspecified E78.5 Cholesterol levels have slightly decreased, but LDL cholesterol remains above the target of 70 mg/dL. Further evaluation for familial hyperlipidemia is planned, with additional laboratory tests to be conducted in the next four months. 3. Sleep apnea, unspecified G47.30 The patient reports severe daytime somnolence and falling asleep during activities, suggestive of Sleep Apnea. A sleep study will be ordered to confirm the diagnosis and guide further management. 4. Major depressive disorder, recurrent severe without psychotic features F33.2 HCC 59 Continue sertraline. Follow up with psychiatry and counseling. Orders: Orders Lipid Panel 4 Months E78.5 - Hyperlipidemia, unspecified Microalbumin, Random (w Creat) 4 Months R80.9 - Proteinuria, unspecified Vitamin B12 and Folate 4 Months E53.8 - Deficiency of other specified B group vitamins Apolipoprotein B 4 Months E78.5 - Hyperlipidemia, unspecified RT home sleep study Today R40.0 - Somnolence AMB Hemoglobin A1c Today E11.9 - Type 2 diabetes mellitus without complications Vitamin D 25-OH Total 4 Months E55.9 - Vitamin D deficiency, unspecified Lipoprotein A 4 Months E78.5 - Hyperlipidemia, unspecified Lipoprotein Asso Phospholip A2 4 Months E78.5 - Hyperlipidemia, unspecified Medications: Changed From nabumetone 500 mg PO BID To nabumetone 500 mg PO BID 180 tabs 1RF 90 days
[2025-04-03 15:20] VITALS: BP 132/66; PULSE 93; TEMP 36.4; O2SAT 97; BMI 29.0
--- OUTSIDE RECORDS SUMMARY | 2025-04-03 18:23 | XMS_ITS | Clinical Summary ---
Author Organization [facility] it Address [address] [place] [address] Care Team Providers Care Exchange Floor Manager Name Role Phone Unavailable Primary Care Provider [...]
== END 2025-04-03 15:51 | disposition home or self-care (01) ==
LOC: HO.HMCH 15:14
PROVIDERS: PCP Internal Medicine; Visit Provider Internal Medicine
DX: E11.9 Type 2 diabetes mellitus without complications (principal); E78.5 Hyperlipidemia, unspecified; F32.2 Major depressive disorder, single episode, severe without psychotic features; G56.03 Carpal tunnel syndrome, bilateral upper limbs; R40.0 Somnolence

== ENCOUNTER → 2025-04-03 15:13 | Outpatient (BNVA) | payer OTHER, SELFPAY | PROVIDERS: PCP Internal Medicine; Visit Provider Internal Medicine | DX: E11.9 Type 2 diabetes mellitus without complications (principal); E78.5 Hyperlipidemia, unspecified; G56.03 Carpal tunnel syndrome, bilateral upper limbs; G47.30 Sleep apnea, unspecified; F33.2 Major depressive disorder, recurrent severe without psychotic features; R80.9 Proteinuria, unspecified; E53.8 Deficiency of other specified B group vitamins; E55.9 Vitamin D deficiency, unspecified | CPT/HCPCS: 83036; 99212 ==

== ENCOUNTER 2025-06-29 12:23 | Outpatient (REF) | payer OTHER, SELFPAY ==
[2025-06-29 14:32] LABS: Microalbum/Creatinine Ratio Ur 6.6 ug/mg cr (<30)
[2025-06-29 14:56] LABS: Cholesterol 241 mg/dL (<200); HDL Cholesterol 47 mg/dL (>40); Triglycerides 100 mg/dL (<150)
[2025-06-29 15:02] LABS: Folate 10.6 ng/mL (> or = 4.0); Vitamin B12 626 pg/mL (200-900)
[2025-07-03 15:29] LABS: Lipoprotein Asso Phospholip A2 129 (<124)
== END 2025-06-29 12:24 | disposition home or self-care (01) ==
LOC: HO.LAB 12:23
PROVIDERS: PCP Internal Medicine; Visit Provider Internal Medicine
DX: E53.8 Deficiency of other specified B group vitamins (principal); E78.5 Hyperlipidemia, unspecified; R80.9 Proteinuria, unspecified; E55.9 Vitamin D deficiency, unspecified
CPT/HCPCS: 36415; 80061; 82043; 82172; 82306; 82570; 82607; 82746; 83695; 83698

== ENCOUNTER 2025-07-04 08:27 | Outpatient (REF) | payer OTHER, SELFPAY ==
--- NOTE | ~2025-07-04 | XR_ITS ---
EXAMINATION: XR SHOULDER, RIGHT CLINICAL INFORMATION: M25.519 - Pain in unspecified shoulder COMPARISON: October 23, 2023. TECHNIQUE: AP external rotation, Grashey, scapular Y, and axillary views of the right shoulder. FINDINGS: Radiopaque anchors in the right humeral neck. No acute fracture or dislocation. Lucencies around at the radiopaque anchors in the greater tuberosity/humeral neck region.. No soft tissue calcifications. XR/XR shoulder RT min 2V IMPRESSION: Status post surgery, right shoulder with loosening involving the radiopaque anchors. Electronically signed by: Favian Fry MD 07/04/2025 01:36 PM EST
== END 2025-07-04 08:28 | disposition home or self-care (01) ==
LOC: HO.HOSX 08:27
PROVIDERS: Visit Provider Physician Assistant
DX: M75.101 Unspecified rotator cuff tear or rupture of right shoulder, not specified as traumatic (principal)
CPT/HCPCS: 73030

== ENCOUNTER 2025-07-04 13:23 | Outpatient (AMB) | payer OTHER, SELFPAY ==
--- NOTE | 2025-07-04 13:37 | A.OFFVIS_ITS ---
Vital Signs 07/04/25 13:38 Height 5 ft 4 in Weight 170 lb BMI 29.2 Intake Visit Reasons: OV-Right shoulder pain/F/U from the RT RTC Intake Note: Terese is a 54 year old right hand dominant male who presents today for a follow up of his right rotator cuff repair 12/09/23 [place]. Patient reports the last few months pain has been to the top of the shoulder. He notices that his range of motion is limited. Patient has taken Naproction with relief. He notices that heat and ice makes his pain worse. Allergies No Known Allergies Allergy (Verified 04/03/25 15:38) HPI HPI OV-Right shoulder pain/F/U from the RT RTC: Details: The patient is a 54-year-old right-hand dominant male who presents to the office today for right shoulder pain. Of note, the patient underwent a right shoulder rotator cuff repair on 12/09/[address] Garza. Over the past few months he has noticed an increase in pain and decrease in range of motion within the right shoulder. He denies any new injury or trauma. He has been taking naproxen with mild relief. He reports that he has also tried ice and heat but this seems to exacerbate his symptoms. [facility] Medical History Hypovitaminosis D Mild recurrent major depression Right hand pain Depression with anxiety Polyarthralgia Dyslipidemia Diabetes mellitus Elevated hemoglobin Abdominal pain Surgical History H/O repair of right rotator cuff History of hand surgery Family History Mother High blood pressure Diabetes Father No problems noted. 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 Negative cross- body reach. 3/5 strength with empty can. Negative drop arm. NVI. Psych Appearance: grossly normal Mental Status: mental status grossly normal Attitude: cooperative Office Procedures AMB Joint Injection/Aspiration Joint Injection/Aspiration Primary Site: Right Shoulder Prep: site was prepped using aseptic technique, ethochloride spray was applied and injection warnings given Injected: 40 mg of, Decadron, with 3 mL of, 1% plain Lidocaine, 0.25% Bupivacaine and in the subcromial space Approach Used: posterolateral Procedure: The patient tolerated the procedure well, but had some pain with the injection and there was some relief with the local anesthesia Coding 84699 - Large joint Procedure code (CPT) selection complete Assessment & Plan Assessment & Plan (1) Rotator cuff tear, right: Comment: Right rotator cuff repair 12/09/2023 [place] Code(s): M75.101 - Unspecified rotator cuff tear or rupture of right shoulder, not specified as traumatic Category: Surgical Qualifiers: Rotator cuff tear extent: unspecified tear extent Rotator cuff tear trauma status: unspecified whether traumatic Qualified Code(s): M75.101 - Unspecified rotator cuff tear or rupture of right shoulder, not specified as traumatic (2) Painful arc syndrome of right shoulder: Code(s): M75.101 - Unspecified rotator cuff tear or rupture of right shoulder, not specified as traumatic Category: Medical Plan The patient is a 54-year-old right-hand dominant male who presents to the office today for right shoulder pain. Of note, the patient underwent a right shoulder rotator cuff repair on 12/09/[address] Garza. Over the past few months he has noticed an increase in pain and decrease in range of motion within the right shoulder. He denies any new injury or trauma. He has been taking naproxen with mild relief. He reports that he has also tried ice and heat but this seems to exacerbate his symptoms. The patient was offered a cortisone injection in left shoulder. The patient was explained the risks, benefits, and alternatives to receiving this injection. After receiving consent for the injection, the patient had the procedure done while in the office today. The patient tolerated the procedure well with no complications. The risks, benefits, and alternatives to a corticosteroid injection were discussed with the patient, including the potential benefits of decreased inflammation and pain, improved function, and diagnostic value. Risks were reviewed, including post-injection flare, skin or fat atrophy, transient facial flushing, temporary elevation in blood glucose, bruising, and rare but serious complications such as infection, tendon weakening or rupture, and cartilage damage with repeated injections. Procedure-related discomfort and possible vasovagal symptoms were also explained. Alternatives were reviewed, including NSAIDs, physical therapy, activity modification, bracing, ice/heat, weight management, hyaluronic acid injections when appropriate, PRP or other orthobiologics, oral steroids, surgery depending on pathology, and observation. The patient verbalized understanding and elected to proceed. After receiving consent for the injection, the patient had the procedure done while in the office today. The patient tolerated the procedure well with no complications. In addition, I have also recommended physical therapy in which the patient is amenable to attend in an order has been created. Patient will follow up after a full course of physical therapy has been completed, sooner if needed. Orders: Orders XR shoulder RT min 2V Today M25.519 - Pain in unspecified shoulder PT Evaluation and Treatment Today M75.101 - Unspecified rotator cuff tear or rupture of right shoulder, not specified as traumatic Coding Level of Care Code Est Pt Level 3 (05929) Diagnoses Tear of right rotator cuff, unspecified tear extent, unspecified whether traumatic M75.101 Rotator cuff tear extent: unspecified tear extent Rotator cuff tear trauma status: unspecified whether traumatic Painful arc syndrome of right shoulder M75.101 CPT Codes Coding - 21116 Large joint: 15356 - Large joint ([id number])
[2025-07-04 13:38] VITALS: BMI 29.2
--- OUTSIDE RECORDS SUMMARY | 2025-07-04 18:50 | XMS_ITS | Clinical Summary ---
Author Organization [facility] it Address [address] [place] [address] Care Team Providers Care Shaker Repairer Name Role Phone Unavailable Primary Care Provider Unavailabl e Social History Tobacco Use Types Packs/Day Years Used Date Smoking Tobacco: Never Assessed Sex and Gender Information Value Date Recorded Sex Assigned at Not on file Legal Sex Male 5:14 AM EST Gender Identity Not on file Sexual Orientation Not on file Plan of Treatment Health Maintenance Due Date Last Done Comments Colorectal Cancer Screening: Colonoscopy 1972 Hepatitis B Vaccines (1 of 3 - 19+ 3-dose series) 09/28/1991 Cholesterol Screening (Lipid Panel) 06/29/2022 HIV Screening 06/29/2022 Hepatitis C Screening 06/29/2022 Social Influencers of Health Screening 06/29/2022 Pneumococcal Vaccine: 50+ Years (2 of 2 - PCV) 2022 2019 Zoster Vaccines (1 of 2) 2022 Depression Screening 07/27/2024 COVID-19 Vaccine (1 - 2024-2 6 season) 2025 Influenza Vaccine (#1) 2025 08/10/2015 DTaP,Tdap,and Td Vaccines (3 - Td or Tdap) 06/30/2033 06/30/2023, 08/19/2019 RSV Immunization Adult Patients (1 - 1-dose 75+ series) 09/28/2047 HIB Vaccines Aged Out No longer eligi [...]
== END 2025-07-04 14:27 | disposition home or self-care (01) ==
LOC: HO.HOS 13:24
PROVIDERS: PCP Internal Medicine; Visit Provider Physician Assistant
DX: M75.101 Unspecified rotator cuff tear or rupture of right shoulder, not specified as traumatic (principal)
CPT/HCPCS: 20610; 99213

== ENCOUNTER → 2025-07-04 13:26 | Outpatient (BNV) | payer OTHER, SELFPAY | PROVIDERS: Visit Provider Radiology Diagnostic Radiology | DX: M25.511 Pain in right shoulder (principal); M24.011 Loose body in right shoulder | CPT/HCPCS: 73030 ==